=== PATIENT | male | born 1940 | race Caucasian/White ===

== ENCOUNTER 2021-06-20 10:55 | Emergency (ER) | payer MEDICARE, BC, SELFPAY ==
[2021-06-20 10:57] VITALS: BP 151/52; PULSE 69; RESP 18; TEMP 36.1; O2SAT 100; BMI 25.9
--- NOTE | 2021-06-20 12:18 | EX.ED.DYSGE1 ---
HPI History of Present Illness Chief Complaint: General Illness Informant: patient and spouse/S.O. Narrative Narrative: 80-year-old male history of end-stage renal disease dialysis. Patient denies any cardiac history. Recently has had some rectal bleeding due to hemorrhoids which he had worked up in [place] where he lives. Currently he is in this area visiting family. He went to an urgent care today. They heard a heart murmur and according to the patient they sent him to the emergency department to have that evaluated. He was supposed to get dialysis at 1130 today. He has since missed that appointment. He called dialysis and told him he would wait till Sunday to come in. He denies any significant swelling or shortness of breath. He denies any chest pain. He does not know if he was previously told he had a heart murmur. He is having no cardiac complaints. Prior similar symptoms: Yes Recent Illness/Hospitalization: No [facility] Medical History (Updated 06/20/21 @ 14:[address] Tanvir Bedoya MD) Hypertension Kidney failure Social History Smoking Status: Never smoker ROS ROS ED ROS Narrative Denies recent illness. Recently diagnosed with internal hemorrhoids with intermittent rectal bleeding. Review of Systems ROS Unobtainable: Denies due to encephalopathy Constitutional Constitutional ED: Denies chills or fever(s) Eyes Eyes: Denies change in vision ENT ENT ED: Denies ear pain or sore throat Cardiovascular Cardiovascular: Denies chest pain Respiratory/Chest Respiratory/Chest: Denies cough or dyspnea Gastrointestinal Gastrointestinal: Denies abdominal pain, diarrhea, nausea or vomiting Genitourinary Genitourinary ED: Denies dysuria Musculoskeletal Musculoskeletal: Denies myalgias Integumentary Denies rash Neurologic Neurologic: Denies headache(s) Psychiatric Psychiatric: Denies depression Endocrine Endocrinology: Denies polyuria Allergic/Immunologic Allergic/Immunologic ED: Denies urticaria EXAM Physical Exam Narrative Exam Narrative: Or male no acute distress vital signs stable afebrile. H EENT exam unremarkable. Neck nontender no JVD. Lungs clear to auscultation bilaterally. Heart regular rate and rhythm rate about 70. 4-6 systolic ejection murmur. Abdomen soft nontender normal bowel sounds no peritoneal signs. Annual exam currently very small external hemorrhoid. Not thrombosed. Not tender. No blood or active bleeding. Moving all 4 extremities. No edema. Neurologically is awake and alert with no focal motor deficits. Const Vital Signs: 06/20/21 10:57 06/20/21 13:04 Temperature 97 F L Temperature Source Temporal Pulse Rate 69 Respiratory Rate 18 Respiratory Pattern Normal Blood Pressure 151/52 H Blood Pressure Mean 85 Pulse Ox 100 Oxygen Delivery Method Room Air Positive well nourished and well developed; Negative for obese, cachectic, contractures or unkempt General Appearance ED: well developed and NAD; Negative for unkempt, cachectic, contractures, cyanotic or diaphoretic Nutritional Appearance: Negative for cachectic or obese HEENT Reports moist mucous membranes Negative for trauma or tenderness Eyes PERRL and EOMs intact bilaterally Neck no lymphadenopathy, supple and no JVD General: Negative for tenderness Chest Wall inspection of chest normal and palpation of chest normal Resp normal respiratory effort and clear to auscultation bilaterally Effort and Inspection: Negative for pain with movement Auscultation: Negative for rales, rhonchi or wheezes Cardio regular rate and regular rhythm; Negative for no murmurs Cardio Narrative: 4/6 systolic ejection murmur. Rate: regular rate Rhythm: regular rhythm GI normal to inspection, nondistended, normoactive bowel sounds, non-tender, non-distended and no masses GI Narrative: Anus no active bleeding. Small non-thrombosed nontender hemorrhoid. Inspection: Negative for abdominal distention Auscultation: normoactive bowel sounds Palpation: soft; Negative for tender, guarding or rebound tenderness present Back/Spine no CVA tenderness General Back: Negative for CVA tenderness Cervical Spine: Negative for cervical spine tenderness Thoracic Spine / Upper Back: Negative for thoracic spinal tenderness Extremity normal to inspection General Extremety ED: Negative for edema or tenderness General Extremity: Negative for edema Neuro oriented x3 and CN's II-XII intact bilaterally Sensorium / Orientation: Negative for orientation impaired, lethargic or stuporous Motor Exam: strength 5/5 throughout Psych mental status grossly normal Appearance: Negative for unkempt Attitude: No agitated Mood & Affect: Negative for depressed or tearful Skin no rashes or lesions noted and no wounds MDM MDM MDM Narrative Medical decision making narrative: 80-year-old male no acute complaint. Was supposed to get dialyzed today. [facility] urgent care sent him here to be evaluated for a heart murmur that my suspect he is had for years. He is having no cardiac complaints. He does have known rectal bleeding. He has had intermittent rectal bleeding but none currently at this time. I will check a CBC and chemistry. Repeat M at 219 patient doing well. He and I went over his test. I did offer him to try to get him dialysis today he did not want that earlier when I first evaluated him he does not want at this time he said to wait till Sunday. He will follow up with cardiology for further evaluation of his heart murmur. Discussed with patient and his he will follow-up with dialysis on Sunday. He will follow up with outpatient work-up of his heart murmur he believes he had an echocardiogram done in [place] about 8 months ago. Lab Data Attestation: I reviewed the patient's lab results. Lab results narrative: CBC shows white count 8. Hemoglobin 8.6. We do not have old labs for comparison but with his history of renal failure this is probably around his baseline. Electrolytes show potassium of 5.3 gap is 7 BUN of 59 creatinine 11.2. Glucose of 127. Labs: Laboratory Results - last 24 hr 06/20/21 06/20/21 12:45 12:45 WBC 8.4 RBC 2.69 L Hgb 8.6 L Hct 27.2 L MCV 101.1 H MCH 32.0 MCHC 31.6 L RDW Std Deviation 53.4 H RDW Coeff of Mauro 14.3 Plt Count 210 MPV 12.0 Sodium 140 Potassium 5.3 H Chloride 106 Carbon Dioxide 27.0 Anion Gap 7 BUN 59 H Creatinine 11.20 H* Estim Creat Clear Calc 5.26 Est GFR (MDRD) Af Amer 6 L Est GFR (MDRD) Non-Af 5 L BUN/Creatinine Ratio 5.3 L Glucose 127 H Calcium 8.4 L Discharge Plan Triage Chief Complaint: General Illness ED Provider: Tanvir Bedoya Dx/Rx/DC Orders Clinical Impression: End stage chronic kidney disease, Anemia due to chronic kidney disease, History of rectal bleeding, Cardiac murmur Primary Care Provider: Care Physician,No Primary Referrals: Donny Vargas MD [STAFF PHYSICIAN] - 1-2 Weeks Martin Ballard MD [STAFF PHYSICIAN] - 1-2 Weeks Care Physician,No Primary [Primary Care Provider] - Activity Restrictions/Additional Instructions: Very important follow-up with your dialysis on Sunday. Do not miss it. Continue your hemorrhoidal cream to prevent further bleeding. Follow-up if bleeding gets a lot worse. If you are going to be in the area follow-up and get a local primary care physician for further evaluation and work-up. Follow-up with either local primary care physician or a local cigarette inspector to have further evaluation of your heart murmur. I suspect it has been there for a long period of time. Disposition Disposition: Home, Self Care
[2021-06-20 12:54] LABS: Hematocrit 27.2 % (40-54); Hemoglobin 8.6 g/dL (13.0-16.5); Mean Corp Hgb Conc 31.6 g/dL (32-36); Mean Corpuscular Volume 101.1 fL (80-94); Platelet Count 210 K/mm3 (150-450); RBC Distribution Width CV 14.3 % (11.6-14.6); RBC Distribution Width SD 53.4 fl (35.1-43.9); Red Blood Count 2.69 M/mm3 (4.6-6.2); White Blood Count 8.4 K/mm3 (4.4-11.0)
[2021-06-20 13:12] LABS: Anion Gap 7 (5-15); BUN 59 mg/dL (7-18); BUN/Creat Ratio 5.3 RATIO (10-20); Calcium,Total 8.4 mg/dL (8.5-10.1); Chloride 106 mmol/L (98-107); EST Glomerular Filtration Rate 5 mL/min (>60); Est Glom Filt Rate - Afr Amer 6 mL/min (>60); Estimated Creatinine Clearance 5.26 ml/min; Glucose 127 mg/dL (74-106); Potassium 5.3 mmol/L (3.5-5.1); Sodium Level 140 mmol/L (136-145)
== END 2021-06-20 14:41 | disposition home or self-care (01) ==
PROVIDERS: Emergency Provider Emergency Medicine
DX: R01.1 Cardiac murmur, unspecified (principal); I12.0 Hypertensive chronic kidney disease with stage 5 chronic kidney disease or end stage renal disease; N18.6 End stage renal disease; D63.1 Anemia in chronic kidney disease; Z99.2 Dependence on renal dialysis
CPT/HCPCS: 80048; 85027; 99284; A4216

== ENCOUNTER 2022-03-10 11:08 | Emergency (ER) | payer MEDICARE, BC, SELFPAY ==
[2022-03-10 11:09] VITALS: BP 176/70; PULSE 62; RESP 14; TEMP 36.6; O2SAT 98; BMI 25.0
--- NOTE | 2022-03-10 11:35 | RAD_ITS ---
STUDY: X-RAY - LEFT FOOT CLINICAL: Male, 81 years old. Pain following a fall. TECHNIQUE: view(s) of the foot. COMPARISON: None. FINDINGS: Normal talus, calcaneus, and tarsal bones. Normal visualized subtalar, talonavicular, calcaneocuboid, tarsal and tarsometatarsal articulations. There is demineralization of the metatarsi. There is degenerative arthrosis of the metatarsophalangeal joint of the hallux . Normal tibial and fibular sesamoid bones. Normal interphalangeal joint of the great toe. Normal phalanges of the great toe. Normal second through fifth metatarsophalangeal joints. Nondisplaced fracture at the base of the second proximal phalanx as well as the distal portion of the second phalanx. Vascular calcification. RAD/Foot min 3 Views IMPRESSION: The mineralization of the bony structures of the foot. Nondisplaced fracture along the base of the proximal phalanx of the second toe as well as the distal portion of the proximal phalanx. Electronically Signed: Georges Hodgson MD at 13:07 EDT ,
[2022-03-10] MEDS: Acetaminophen 500 MG Tablet 1000 MG PO (11:42)
--- NOTE | 2022-03-10 11:44 | RAD_ITS ---
STUDY: X-RAY - RIGHT FOOT CLINICAL: Male, 81 years old. Pain following a fall. TECHNIQUE: 3 view(s) of the foot. COMPARISON: None. FINDINGS: Small plantar spur. Normal visualized subtalar, talonavicular, calcaneocuboid, tarsal and tarsometatarsal articulations. Normal metatarsi. There is degenerative arthrosis of the metatarsophalangeal joint of the hallux . Normal tibial and fibular sesamoid bones. Normal interphalangeal joint of the great toe. Normal phalanges of the great toe. Normal second through fifth metatarsophalangeal joints. Normal interphalangeal joints and phalanges of the lesser toes. Vascular calcification. RAD/Foot min 3 Views IMPRESSION: No acute abnormality is seen. Electronically Signed: Georges Hodgson MD at 13:08 EDT ,
--- NOTE | 2022-03-10 11:59 | ED.VIS.LOWEX ---
HPI History of Present Illness Chief Complaint: Lower Extremity Injury Informant: patient and family Narrative Narrative: Patient brought in by EMS bilateral foot pain from injury 2 evenings ago. Mechanical fall catching his feet on a rug, no head injuries he caught himself. States no significant swelling, however today had increasing pain with ambulation. No new injuries. No paresthesias. Patient on blood pressure cholesterol medicines also on amiodarone. He does takes baby aspirin. No other anticoagulants. He does not member with any assistance. Prior similar symptoms: No PFSH PFSH Medical History Hyperlipidemia Hypertension Kidney failure Home Medications amiodarone 200 mg tablet 1 tab PO DAILY 03/10/22 [History Last Taken Unknown] atorvastatin 40 mg tablet 1 tab PO DAILY 03/10/22 [History Last Taken Unknown] losartan 25 mg tablet 1 tab PO DAILY 03/10/22 [History Last Taken Unknown] nifedipine 90 mg tablet,extended release 1 tab PO DAILY 03/10/22 [History Last Taken Unknown] Allergy/AdvReac Type Severity Reaction Status Date / Time HEART MED Allergy PT UNSURE Uncoded 03/10/22 11:14 OF REACTION Surgical History History of colon resection Social History Smoking Status: Never smoker ROS ROS ED Constitutional Constitutional ED: Denies chills, fever(s) or sweats Eyes Eyes: Denies change in vision ENT ENT ED: Denies dysphagia or sore throat Cardiovascular Cardiovascular: Denies chest pain, leg edema, palpitations or racing heartbeat Respiratory/Chest Respiratory/Chest: Denies cough, dyspnea or dyspnea on exertion Gastrointestinal Gastrointestinal: Denies abdominal pain, diarrhea, nausea or vomiting Genitourinary Genitourinary ED: Denies dysuria, hematuria or urinary frequency Musculoskeletal Musculoskeletal: Reports other Details: Bilateral feet pain ; Denies back pain, extremity pain or neck pain Integumentary Denies rash or wounds Neurologic Neurologic: Denies headache(s), paresthesias or weakness EXAM Physical Exam Const Vital Signs: 03/10/22 11:09 Temperature 97.9 F Temperature Source Oral Pulse Rate 62 Respiratory Rate 14 Blood Pressure 176/70 H Blood Pressure Mean 105 Pulse Ox 98 Oxygen Delivery Method Room Air Positive well nourished and well developed Constitutional Narrative: GCS 15. General Appearance ED: well developed and NAD HEENT Reports moist mucous membranes normocephalic and atraumatic Eyes PERRL, EOMs intact bilaterally and conjunctivae normal General Eye ED: Yes normal appearance of both eyes Neck no lymphadenopathy and supple General: Negative for tenderness Chest Wall Chest: Negative for tenderness Resp normal respiratory effort and normal air movement Effort and Inspection: symmetric chest movement; Negative for respiratory distress Cardio regular rate, regular rhythm and no murmurs Peripheral Pulses: pulses 2+ throughout GI normal to inspection, nondistended, normoactive bowel sounds and non-tender Palpation: Negative for guarding or rebound tenderness present Back/Spine no CVA tenderness and no thoracic nor lumbar tenderness Extremity Extremity Narrative: Right lower extremity: No hip knee or ankle tenderness. There is no midfoot or proximal fifth base tenderness there is some tenderness on the distal second and third metatarsals with no deformities. Skin intact. No ecchymosis. Long toenails. Left lower extremity: No hip knee or ankle tenderness. There is no proximal midfoot tenderness. There is mild ecchymosis dorsal second and third metatarsals extending to the second digit. No deformities. Skin intact. Neuro vas intact. Long toenails. Left upper extremity positive thrill with fistula upper arm. General Extremety ED: Negative for edema or tenderness General Extremity: Negative for edema Neuro oriented x3 and no sensory deficits noted Sensorium / Orientation: awake and alert Skin no rashes or lesions noted and no wounds MDM MDM MDM Narrative Medical decision making narrative: X-rayPatient agreed with Tylenol for discomfort. X-ray right foot 3 views reviewed myself and read by radiology shows no acute process. X-ray left foot reviewed myself read by radiology notes second digit proximal phalanx fracture proximal and distal portion. This is closed. Patient's toenails were trimmed by myself. He has no neuropathy history. He is provided a walker and able ambulate with no difficulties. He will continue Tylenol. He is given follow-up with podiatry with his diabetes history along with his toe fracture. All questions were answered. Radiography Diagnostic Testing: Clinical Impression(s) from Imaging Studies Foot X-Ray 03/10/22 11:35 IMPRESSION: The mineralization of the bony structures of the foot. Nondisplaced fracture along the base of the proximal phalanx of the second toe as well as the distal portion of the proximal phalanx. Electronically Signed: Georges Hodgson MD at 13:07 EDT , Foot X-Ray 03/10/22 11:44 IMPRESSION: No acute abnormality is seen. Electronically Signed: Georges Hodgson MD at 13:08 EDT , Discharge Plan Triage Chief Complaint: Lower Extremity Injury ED Provider: Kirby Sparks Dx/Rx/DC Orders Clinical Impression: Toe fracture, left, Right foot sprain, ESRD on dialysis Instructions: ED Foot Sprain, ED Fracture, Toe, Closed Prescriptions: No Action atorvastatin 40 mg tablet 1 tab PO DAILY nifedipine 90 mg tablet extended release 1 tab PO DAILY Label Comments: TAKE 1 TABLET BY MOUTH ONCE DAILY amiodarone 200 mg tablet 1 tab PO DAILY losartan 25 mg tablet 1 tab PO DAILY Primary Care Provider: Care Physician,No Primary Referrals: Dalton Stephens DPM [STAFF PHYSICIAN] - 1 Week Care Physician,No Primary [Primary Care Provider] - Disposition Disposition: Home, Self Care
--- NOTE | 2022-03-10 13:29 | ED.RN ---
trimmed pt's toenails
== END 2022-03-10 13:30 | disposition home or self-care (01) ==
PROVIDERS: Emergency Provider Emergency Medicine; Visit Provider Emergency Medicine
DX: S92.912D Unspecified fracture of left toe(s), subsequent encounter for fracture with routine healing (principal); Z99.2 Dependence on renal dialysis; E11.22 Type 2 diabetes mellitus with diabetic chronic kidney disease; N18.6 End stage renal disease; I12.0 Hypertensive chronic kidney disease with stage 5 chronic kidney disease or end stage renal disease; E78.5 Hyperlipidemia, unspecified; S93.601D Unspecified sprain of right foot, subsequent encounter; W01.0XXD Fall on same level from slipping, tripping and stumbling without subsequent striking against object, subsequent encounter; Z79.899 Other long term (current) drug therapy
CPT/HCPCS: 73630; 99284

== ENCOUNTER 2022-07-08 03:19 | Inpatient (IN) | payer MEDICARE, BC, SELFPAY ==
[2022-07-08] VITALS (18 sets, daily range): BP systolic 141–220; BP diastolic 56–80; PULSE 56–87; RESP 16–24; TEMP 36.7–37.5; O2SAT 93–96; BMI 25.2; BMI 24.3
--- NOTE | 2022-07-08 03:25 | EKG12_ITS ---
Test Reason : DYSRHYTHMIA Blood Pressure : / mmHG Vent. Rate : 079 BPM Atrial Rate : 079 BPM P-R Int : 176 ms QRS Dur : 100 ms QT Int : 424 ms P-R-T Axes : -28 065 049 degrees QTc Int : 486 ms Normal sinus rhythm Prolonged QT Abnormal ECG No previous ECGs available Confirmed by JIMMY ESTRADA, AMRIT ([id number]), food expeditor BEA CLINTON ([id number]) on 07/12/2022 9:29:24 AM Referred By: MORA Confirmed By:AMRIT MARQUEZ MD
--- NOTE | 2022-07-08 03:28 | EDS_ITS ---
HPI History of Present Illness Chief Complaint: Weakness Informant: patient Onset/Context/Timing Onset: Weeks (2) Context: Gradual Onset Timing: Continuous Quality: Weakness Location: Lower extremities Worsened by: Nothing Relieved by: Nothing Narrative Narrative: Patient presents with generalized weakness that has been getting worse over the past 2 weeks. Patient states he feels like he is having difficulty ambulating because his legs feel weak. Patient denies any chest pain. Patient does admit to some shortness of breath. Patient denies any nausea or vomiting. Patient denies any cough. Patient has a history of chronic kidney disease and is on dialysis. Patient states he normally takes dialysis on Sunday, Sunday, and Sunday. Patient missed his dialysis on Sunday. Patient states his last dialysis was Sunday. Patient denies any sick contacts. [facility] Medical History Hyperlipidemia Hypertension Kidney failure Home Medications amiodarone 200 mg tablet 1 tab PO DAILY 03/10/22 [History Last Taken Unknown] atorvastatin 40 mg tablet 1 tab PO DAILY 03/10/22 [History Last Taken Unknown] losartan 25 mg tablet 1 tab PO DAILY 03/10/22 [History Last Taken Unknown] nifedipine 90 mg tablet,extended release 1 tab PO DAILY 03/10/22 [History Last Taken Unknown] aspirin 81 mg capsule 81 mg PO DAILY 07/08/22 [History Last Taken Unknown] donepezil 10 mg tablet 20 mg PO QHS 07/08/22 [History Last Taken Unknown] Allergy/AdvReac Type Severity Reaction Status Date / Time HEART MED Allergy PT UNSURE Uncoded 03/10/22 11:14 OF REACTION Surgical History History of colon resection Social History Smoking Status: Never smoker ROS ROS ED Constitutional Constitutional ED: Denies chills or fever(s) Eyes Eyes: Denies blurry vision or change in vision ENT ENT ED: Denies rhinorrhea or sore throat Cardiovascular Cardiovascular: Denies chest pain or palpitations Respiratory/Chest Respiratory/Chest: Reports cough and dyspnea Gastrointestinal Gastrointestinal: Denies nausea or vomiting Genitourinary Genitourinary ED: Denies dysuria or hematuria Musculoskeletal Musculoskeletal: Denies back pain or neck pain Integumentary Denies abscess or rash Neurologic Neurologic: Reports weakness; Denies headache(s) Allergic/Immunologic Allergic/Immunologic ED: Denies mouth swelling or urticaria EXAM Physical Exam Const Vital Signs: 07/08/22 03:22 07/08/22 03:22 07/08/22 03:29 Temperature 98.8 F 98.8 F Temperature Source Temporal Temporal Pulse Rate 87 87 Respiratory Rate 18 18 Respiratory Pattern Normal Blood Pressure 220/73 H 220/73 H Blood Pressure Mean 122 122 Pulse Ox 95 95 Oxygen Delivery Method Room Air Room Air 07/08/22 04:00 07/08/22 05:12 07/08/22 06:00 Temperature Temperature Source Pulse Rate 74 66 63 Respiratory Rate 24 H 24 H 23 H Respiratory Pattern Blood Pressure 195/80 H 147/60 H 188/65 H Blood Pressure Mean 118 89 106 Pulse Ox 95 94 95 Oxygen Delivery Method Room Air Room Air Room Air Positive well nourished and well developed General Appearance ED: well developed and NAD HEENT Reports moist mucous membranes Neck supple and no JVD Resp normal respiratory effort Auscultation: diminished lung sounds bilateral Cardio regular rate and regular rhythm GI normal to inspection, nondistended, normoactive bowel sounds and non-tender Palpation: soft Extremity normal to inspection General Extremety ED: Negative for edema or tenderness General Extremity: Negative for edema Neuro oriented x3, CN's II-XII intact bilaterally and no sensory deficits noted Sensorium / Orientation: alert Psych mental status grossly normal MDM MDM MDM Narrative Medical decision making narrative: Patient was given a dose of clonidine here. EKG was obtained. On my interpretation, it showed a normal sinus rhythm with a rate of 79. MD interval and QRS interval were normal. QTc interval slightly prolonged at 486 ms. [place] was normal. There are no acute ST or T wave changes. CBC shows a mild anemia with a hemoglobin of 10.7 hematocrit 34.7. PT was INR and PTT were essentially within normal limits. Comprehensive metabolic profile showed a BUN of 29 and creatinine of 10.1. These are consistent with prior results. High-sensitivity troponin was 80. BNP was 1764.8. Patient was given a dose of Lasix here. Portable 1 view chest x-ray was obtained. On my interpretation, lung mackey show bibasilar atelectasis. There is normal cardiac silhouette. Bony thorax is normal. There is no acute process noted. Radiologist also interpreted the x- ray and agrees. Urinalysis does not show any evidence of urinary tract infection or hematuria. COVID-19 rapid antigen was obtained and was positive. Influenza A and influenza B antigens were obtained and were negative. Case was discussed with the hospitalist. He will admit the patient for observation. Lab Data Attestation: I reviewed the patient's lab results. Labs: Laboratory Results - last 24 hr 07/08/22 07/08/22 07/08/22 03:24 03:34 03:34 WBC 7.5 RBC 3.28 L Hgb 10.7 L Hct 34.7 L MCV 105.8 H MCH 32.6 H MCHC 30.8 L RDW Std Deviation 54.9 H RDW Coeff of Mauro 14.2 Plt Count 209 MPV 11.9 Immature Gran % (Auto) 0.800 Neut % (Auto) 74.0 H Lymph % (Auto) 10.5 L Hughes % (Auto) 13.9 H Eos % (Auto) 0.3 Baso % (Auto) 0.5 Absolute Neuts (auto) 5.6 Absolute Lymphs (auto) 0.79 L Nucleated RBC % 0 PT 13.0 INR 1.0 APTT 37.6 H Sodium Potassium Chloride Carbon Dioxide Anion Gap BUN Creatinine Estim Creat Clear Calc Est GFR (MDRD) Af Amer Est GFR (MDRD) Non-Af BUN/Creatinine Ratio Glucose Calcium Total Bilirubin AST ALT Alkaline Phosphatase Troponin I High Sens B-Natriuretic Peptide 1764.8 H Total Protein Albumin Globulin Albumin/Globulin Ratio Urine Color Urine Clarity Urine pH Ur Specific [place] Urine Protein Urine Glucose (UA) Urine Ketones Urine Occult Blood Urine Nitrite Urine Bilirubin Urine Urobilinogen Ur Leukocyte Esterase Urine RBC Urine WBC Ur Squamous Epith Cells Urine Bacteria Urine Mucus 07/08/22 07/08/22 03:34 05:30 WBC RBC Hgb Hct MCV MCH MCHC RDW Std Deviation RDW Coeff of Mauro Plt Count MPV Immature Gran % (Auto) Neut % (Auto) Lymph % (Auto) Hughes % (Auto) Eos % (Auto) Baso % (Auto) Absolute Neuts (auto) Absolute Lymphs (auto) Nucleated RBC % PT INR APTT Sodium 141 Potassium 4.6 Chloride 101 Carbon Dioxide 29.0 Anion Gap 11 BUN 29 H Creatinine 10.10 H* Estim Creat Clear Calc 5.83 Est GFR (MDRD) Af Amer 6 L Est GFR (MDRD) Non-Af 5 L BUN/Creatinine Ratio 2.9 L Glucose 86 Calcium 8.4 L Total Bilirubin 0.40 AST 46 H ALT 29 Alkaline Phosphatase 89 Troponin I High Sens 80 H B-Natriuretic Peptide Total Protein 7.0 Albumin 3.1 L Globulin 3.9 Albumin/Globulin Ratio 0.8 L Urine Color Yellow Urine Clarity Clear Urine pH 8.0 Ur Specific [place] 1.010 Urine Protein 100 H Urine Glucose (UA) Normal Urine Ketones 5 H Urine Occult Blood Negative Urine Nitrite Negative Urine Bilirubin Negative Urine Urobilinogen Normal Ur Leukocyte Esterase 25 H Urine RBC 0 SEEN Urine WBC 0-5 SEEN Ur Squamous Epith Cells 0-5 SEEN Urine Bacteria 0 SEEN Urine Mucus 0 SEEN Radiography Chest X-Ray - ED: 1 View, Read by ED Physician, Read by Radiologist and No Acute Disease Diagnostic Testing: Clinical Impression(s) from Imaging Studies Chest X-Ray 07/08/22 03:50 IMPRESSION: Bibasilar linear scarring and/or atelectasis. Electronically Signed: Chucho Franklin MD at 4:12 EST , EKG Initial EKG: Attestation: I personally reviewed and interpreted this EKG as follows: Interpretation: Sinus Rhythm (79) and No Acute Injury Pattern Prior EKG tracings: not available for review Prior: No Prior Discharge Plan Dx/Rx/DC Orders Clinical Impression: General weakness, Chronic kidney disease, COVID-19 Disposition Disposition: Acute Care Hospital [facility]
[2022-07-08 03:47] LABS: Absolute Lymphocyte Count 0.79 X10^3/uL (0.83-4.51); Absolute Neutrophil Count 5.6 X10^3/uL (2.0-7.7); Basophil# 0.04 X10^3/uL; Basophil% 0.5 % (0-1); Eosinophil# 0.02 X10^3/uL; Eosinophils% 0.3 % (0-5); Hematocrit 34.7 % (40-54); Hemoglobin 10.7 g/dL (13.0-16.5); Lymphocyte # 0.79 X10^3/ul (0.83-4.51); Lymphocyte % 10.5 % (19-41); Mean Corp Hgb Conc 30.8 g/dL (32-36); Mean Corpuscular Hgb 32.6 pg (27.0-32.0); Mean Corpuscular Volume 105.8 fL (80-94); Mean Platelet Vol. 11.9 fl (6.2-12.0); Monocyte# 1.05 X10^3/uL; Monocyte% 13.9 % (0-10); NRBC Flagged by Analyzer 0 % (0-5); Neutrophil # 5.58 X10^3/uL (2.7-7.7); Platelet Count 209 K/mm3 (150-450); RBC Distribution Width CV 14.2 % (11.6-14.6); RBC Distribution Width SD 54.9 fl (35.1-43.9); Red Blood Count 3.28 M/mm3 (4.6-6.2); White Blood Count 7.5 K/mm3 (4.4-11.0)
--- NOTE | 2022-07-08 03:50 | RAD_ITS ---
INDICATION: cough EXAMINATION/TECHNIQUE: X-RAY - AP view of chest COMPARISON: None received. FINDINGS: LINES/DEVICES: Left upper extremity vascular stents present. LUNGS: Bibasilar linear opacities. No overt pulmonary edema. No sizable pleural effusion. No detectable pneumothorax. MEDIASTINUM AND CARDIOVASCULAR STRUCTURES: Heart size within normal limits for imaging technique. Atherosclerotic calcifications along aorta. BONES AND SOFT TISSUES: Skeletal degenerative changes. RAD/Chest 1 View (Portable) IMPRESSION: Bibasilar linear scarring and/or atelectasis. Electronically Signed: Chucho Franklin MD at 4:12 EST ,
[2022-07-08 03:58] LABS: Partial Thromboplast Time 37.6 Seconds (24.1-36.2)
[2022-07-08] MEDS: cloNIDine HCl 0.1 MG Tablet PO (04:00)
[2022-07-08 04:41] LABS: ALB/GLOB Ratio 0.8 RATIO (0.9-2.4); AST(SGOT) 46 U/L (15-37); Alanine Aminotransfer ALT/SGPT 29 U/L (16-61); Albumin, Serum 3.1 g/dL (3.2-5.0); Alkaline Phosphatase 89 U/L (45-117); Anion Gap 11 (5-15); BUN 29 mg/dL (7-18); BUN/Creat Ratio 2.9 RATIO (10-20); Calcium,Total 8.4 mg/dL (8.5-10.1); Chloride 101 mmol/L (98-107); EST Glomerular Filtration Rate 5 mL/min (>60); Est Glom Filt Rate - Afr Amer 6 mL/min (>60); Estimated Creatinine Clearance 5.83 ml/min; Globulin 3.9 g/dL (2.2-4.2); Glucose 86 mg/dL (74-106); Potassium 4.6 mmol/L (3.5-5.1); Sodium Level 141 mmol/L (136-145); Troponin-I HS 80 pg/mL (3.0-78.0)
[2022-07-08 04:58] LABS: BNP,B-Type NATRIURETIC PEPTIDE 1764.8 pg/mL (0-100)
[2022-07-08] MEDS: Furosemide 40 MG/4 ML Vial IV (05:17)
[2022-07-08 05:37] LABS: Bacteria 0 SEEN /hpf (None Seen); Mucous, Urine 0 SEEN /hpf (<or=2+); Red Blood Cells-Urine 0 SEEN /hpf (0-5)
[2022-07-08 05:38] LABS: Color, Urine Yellow (Yellow); Glucose, Dipstick Normal (Normal); Ketone-Dipstick 5 mg/dl (Negative); Leukocyte Esterase-Dipstick 25 /ul (Negative); Nitrite-Dipstick Negative (Negative); Occult Blood-Urine Negative /ul (Negative); Protein-Dipstick 100 mg/dl (Negative); Urine Bilirubin Dipstick Negative (Negative); Urine Clarity Clear (Clear); Urine Urobilinogen Normal (Normal)
[2022-07-08 05:44] LABS: Squamous Epithelial Cells - UA 0-5 SEEN /hpf (0-5); White Blood Cells 0-5 SEEN /hpf (0-5)
--- NOTE | 2022-07-08 06:23 | PCM.HP.STD ---
HPI - General General Date of Admission: 07/08/22 HPI Narrative ANNE-MARIE DAVIES, is a 82 M who presents to the hospital with weakness. He states that he started getting weak about 2 weeks ago and has progressed since that time. He is unsure as to the cause and both he and his are poor historians. He is on dialysis MWF for ESRD and his program research specialist is a Dr. Carroll or Mary in [place]. He was so weak that he had to skip dialysis on sunday and now presents with a creatinine of 10.10. BUN is elevated but likely related to his renal failure. He also states that he has been coughing for the last month but has not had any real fevers or chills. He has not been around any sick contacts but he did test positive for COVID and has not been vaccinated. It looks like he has been to the hospital in February secondary to a fall so meet he may be battling with chronic weakness at this point. He is also a little hypertensive which could be explained by the fact that he skipped dialysis yesterday. His troponin is elevated to 88 however he denies any chest pain, or shortness of breath. His troponin elevation is likely correlated with his elevated creatinine as well. [facility] Medical History Hyperlipidemia Hypertension Kidney failure Home Medications amiodarone 200 mg tablet 1 tab PO DAILY 03/10/22 [History Last Taken Unknown] atorvastatin 40 mg tablet 1 tab PO DAILY 03/10/22 [History Last Taken Unknown] losartan 25 mg tablet 1 tab PO DAILY 03/10/22 [History Last Taken Unknown] nifedipine 90 mg tablet,extended release 1 tab PO DAILY 03/10/22 [History Last Taken Unknown] aspirin 81 mg capsule 81 mg PO DAILY 07/08/22 [History Last Taken Unknown] donepezil 10 mg tablet 20 mg PO QHS 07/08/22 [History Last Taken Unknown] Allergy/AdvReac Type Severity Reaction Status Date / Time HEART MED Allergy PT UNSURE Uncoded 03/10/22 11:14 OF REACTION Family History (Updated 07/08/22 @ 06:[address] Balwinder Erickson MD) Other Heart disease Hypertension Surgical History History of colon resection Social History Smoking Status: Never smoker ROS Constitutional Constitutional: Reports weakness; Denies chills, fatigue, fever(s) or malaise Eyes Eyes: Denies blurry vision ENT HEENT: Denies headache(s) or nasal discharge Cardiovascular Cardiovascular: Denies chest pain, dyspnea on exertion or syncope Respiratory/Chest Respiratory/Chest: Denies cough, shortness of breath at rest or shortness of breath with exertion Gastrointestinal Gastrointestinal: Denies constipation, diarrhea, nausea or vomiting Genitourinary Genitourinary: Denies dysuria Neurologic Neurologic: Denies focal weakness, numbness or tremor(s) Psychiatric Psychiatric: Denies anxiety or depression Vital Signs Vital Signs Vital Signs: 07/08/22 03:22 07/08/22 03:22 07/08/22 03:29 Temperature 98.8 F 98.8 F Temperature Source Temporal Temporal Pulse Rate 87 87 Respiratory Rate 18 18 Respiratory Pattern Normal Blood Pressure 220/73 H 220/73 H Blood Pressure Mean 122 122 Pulse Ox 95 95 Oxygen Delivery Method Room Air Room Air 07/08/22 04:00 07/08/22 05:12 07/08/22 06:00 Temperature Temperature Source Pulse Rate 74 66 63 Respiratory Rate 24 H 24 H 23 H Respiratory Pattern Blood Pressure 195/80 H 147/60 H 188/65 H Blood Pressure Mean 118 89 106 Pulse Ox 95 94 95 Oxygen Delivery Method Room Air Room Air Room Air 07/08/22 06:14 Temperature 99.2 F H Temperature Source Temporal Pulse Rate 62 Respiratory Rate 21 H Respiratory Pattern Blood Pressure 190/60 H Blood Pressure Mean 103 Pulse Ox 96 Oxygen Delivery Method Room Air Weight Weight: 170 lb 13.732 oz Body Mass Index (BMI) 25.2 Physical Exam Narrative General: Alert but drowsy, Oriented x3, Cooperative, No apparent distress HEENT: Atraumatic, PERRLA, EOMI, Normocephalic Oral: Moist Mucosa Neck: Supple, No JVD Lungs: Diminished, Normal air movement, No rhonchi, No wheeze, No rales Cardiovascular: Regular rate, Regular Rhythm, Normal S1, Normal S2, No murmurs Abdomen: Soft, Non Tender, mild distention, No Hepato-splenomegaly Extremities: No edema, Capillary Refill Less than 3 Seconds, left upper extremity fistula Skin: No rashes, No breakdown, multiple areas of ecchymosis consistent with falls Musculoskeletal: No Tenderness to Palpation of Joints or Extremities Neurological: Cranial nerves II-XII grossly intact, Motor Exam 5/5 strength throughout, Sensory exam intact to light touch and pain Psych/Mental Status: Flat affect, Appropriate Results Lab / Micro Data Result Diagrams: 07/08/22 03:34 07/08/22 03:34 Labs: Laboratory Results - last 24 hr 07/08/22 03:24: B-Natriuretic Peptide 1764.8 H 07/08/22 03:34: WBC 7.5, RBC 3.28 L, Hgb 10.7 L, Hct 34.7 L, MCV 105.8 H, MCH 32.6 H, MCHC 30.8 L, RDW Std Deviation 54.9 H, RDW Coeff of Mauro 14.2, Plt Count 209, MPV 11.9, Immature Gran % (Auto) 0.800, Neut % (Auto) 74.0 H, Lymph % (Auto) 10.5 L, [place] % (Auto) 13.9 H, Eos % (Auto) 0.3, Baso % (Auto) 0.5, Absolute Neuts (auto) 5.6, Absolute Lymphs (auto) 0.79 L, Nucleated RBC % 0 07/08/22 03:34: PT 13.0, INR 1.0, APTT 37.6 H 07/08/22 03:34: Sodium 141, Potassium 4.6, Chloride 101, Carbon Dioxide 29.0, Anion Gap 11, BUN 29 H, Creatinine 10.10 H*, Estim Creat Clear Calc 5.83, Est GFR (MDRD) Af Amer 6 L, Est GFR (MDRD) Non-Af 5 L, BUN/Creatinine Ratio 2.9 L, Glucose 86, Calcium 8.4 L, Total Bilirubin 0.40, AST 46 H, ALT 29, Alkaline Phosphatase 89, Troponin I High Sens 80 H, Total Protein 7.0, Albumin 3.1 L, Globulin 3.9, Albumin/Globulin Ratio 0.8 L 07/08/22 05:30: Urine Color Yellow, Urine Clarity Clear, Urine pH 8.0, Ur Specific [place] 1.010, Urine Protein 100 H, Urine Glucose (UA) Normal, Urine Ketones 5 H, Urine Occult Blood Negative, Urine Nitrite Negative, Urine Bilirubin Negative, Urine Urobilinogen Normal, Ur Leukocyte Esterase 25 H, Urine RBC 0 SEEN, Urine WBC 0-5 SEEN, Ur Squamous Epith Cells 0-5 SEEN, Urine Bacteria 0 SEEN, Urine Mucus 0 SEEN Micro: Microbiology 07/08/22 03:46 Nasal Secretion SARS-CoV-2 & FLU Antigen (Rapid) - Final SARS-CoV-2 (COVID 19) Radiology Impression Chest X-Ray 07/08/22 03:50 IMPRESSION: Bibasilar linear scarring and/or atelectasis. Electronically Signed: Chucho Franklin MD at 4:12 EST , Assessment & Plan Assessment/Plan (1) General weakness: (2) COVID-19: PLAN: Plan 1. Generalized weakness likely due to COVID-19 and missed dialysis/abdominal distention ? We will consult nephrology for dialysis today if possible. He gets dialysis from a program research specialist in [place] ? We only have 1 prior creatinine in the system so I do not know where he normally sits in terms of his renal function we will add a Mag and a phos ? He says that he has had a cough for at least a month and has been weak for at least [address] given the fact that his oxygenation is is stable on room air I do not believe that he needs to be in precautions for COVID and he does not meet the criteria for treatment ? PT/OT evaluation for placement, he is okay with going to a skilled nursing if necessary ? UA and chest x-ray were negative for a bacterial infection, he does not have a leukocytosis and is afebrile ? We will add liver panel to labs from today he states that his abdomen is not normally this big it is not tense or tender 2. HTN/HLD ? Blood pressures are elevated he would likely benefit from dialysis more than medication, he does have a left upper extremity fistula ? Continue home oral blood pressure medications ? Continue with Lipitor and aspirin 3. Dementia ? Continue with donepezil DVT: Heparin Charges/Coding Visit Charges OBSV E&M: 89248 Initial observation care L2
[2022-07-08 06:25] LABS: Troponin-I HS 88 pg/mL (3.0-78.0)
[2022-07-08 07:02] LABS: Phosphorus 3.8 mg/dL (2.5-4.9)
[2022-07-08 07:06] LABS: AST(SGOT) 45 U/L (15-37); Alanine Aminotransfer ALT/SGPT 31 U/L (16-61); Albumin, Serum 2.9 g/dL (3.2-5.0); Alkaline Phosphatase 80 U/L (45-117); Bilirubin, Direct 0.12 mg/dL (0.00-0.30); Globulin 3.5 g/dL (2.2-4.2); Protein, Total 6.4 g/dL (6.4-8.2)
--- NOTE | 2022-07-08 08:48 | NURSING ---
attempted three times to call in consult for Dr Breaux through [facility]'s answering service. stayed on hold for 6+ minutes each time, with no answer
--- NOTE | 2022-07-08 10:42 | PN.HOSP_ITS ---
Subjective Subjective Patient is an 82-year-old gentleman who is now vaccinated against COVID-19, with past medical history significant for end-stage renal disease, with left upper extremity fistula presented to the emergency department with generalized weakness tested positive for COVID admitted to a monitored bed for further management Objective Data Objective Data Vital Signs: Vital Signs Temp Pulse Resp BP Pulse Ox O2 Del Method 99.1 F 60 16 185/63 H 93 Room Air 07/08/22 08:18 07/08/22 08:18 07/08/22 08:18 07/08/22 08:18 07/08/22 08:18 07/08/22 08:18 Oxygen Delivery Method Room Air Weight: 74.843 kg Body Mass Index (BMI) 24.3 Lab / Micro Data Result Diagrams: 07/08/22 03:34 07/08/22 03:34 Labs: Laboratory Results - last 24 hr 07/08/22 03:24: B-Natriuretic Peptide 1764.8 H 07/08/22 03:34: WBC 7.5, RBC 3.28 L, Hgb 10.7 L, Hct 34.7 L, MCV 105.8 H, MCH 32.6 H, MCHC 30.8 L, RDW Std Deviation 54.9 H, RDW Coeff of Mauro 14.2, Plt Count 209, MPV 11.9, Immature Gran % (Auto) 0.800, Neut % (Auto) 74.0 H, Lymph % (Auto) 10.5 L, [place] % (Auto) 13.9 H, Eos % (Auto) 0.3, Baso % (Auto) 0.5, Absolute Neuts (auto) 5.6, Absolute Lymphs (auto) 0.79 L, Nucleated RBC % 0 07/08/22 03:34: PT 13.0, INR 1.0, APTT 37.6 H 07/08/22 03:34: Sodium 141, Potassium 4.6, Chloride 101, Carbon Dioxide 29.0, Anion Gap 11, BUN 29 H, Creatinine 10.10 H*, Estim Creat Clear Calc 5.83, Est GFR (MDRD) Af Amer 6 L, Est GFR (MDRD) Non-Af 5 L, BUN/Creatinine Ratio 2.9 L, Glucose 86, Calcium 8.4 L, Total Bilirubin 0.40, AST 46 H, ALT 29, Alkaline Phosphatase 89, Troponin I High Sens 80 H, Total Protein 7.0, Albumin 3.1 L, Globulin 3.9, Albumin/Globulin Ratio 0.8 L 07/08/22 05:30: Urine Color Yellow, Urine Clarity Clear, Urine pH 8.0, Ur Specific [place] 1.010, Urine Protein 100 H, Urine Glucose (UA) Normal, Urine Ketones 5 H, Urine Occult Blood Negative, Urine Nitrite Negative, Urine Bilirubin Negative, Urine Urobilinogen Normal, Ur Leukocyte Esterase 25 H, Urine RBC 0 SEEN, Urine WBC 0-5 SEEN, Ur Squamous Epith Cells 0-5 SEEN, Urine Bacteria 0 SEEN, Urine Mucus 0 SEEN 07/08/22 05:58: Troponin I High Sens 88 H 07/08/22 05:58: Magnesium 2.0, Total Bilirubin 0.30, Direct Bilirubin 0.12, AST 45 H, ALT 31, Alkaline Phosphatase 80, Total Protein 6.4, Albumin 2.9 L, Globulin 3.5 07/08/22 05:58: Phosphorus 3.8 Micro: Microbiology 07/08/22 03:46 Nasal Secretion SARS-CoV-2 & FLU Antigen (Rapid) - Final SARS-CoV-2 (COVID 19) Radiography Diagnostic Testing: Radiology Impression Chest X-Ray 07/08/22 03:50 IMPRESSION: Bibasilar linear scarring and/or atelectasis. Electronically Signed: Chucho Franklin MD at 4:12 EST Reading Location ID and State: [address] [place] [address] Tel , Service support , Physical Exam Narrative GENERAL: Frail looking HEENT: Atraumatic; normocephalic EYES; Anicteric, Normal Conjunctiva NECK; supple, normal thyroid, RESPIRATORY: Diminished to auscultation CARDIOVASCULAR: Regular S1 S2, GI: soft, normoactive bowel sounds, : No Renal angle tenderness; EXTREMITIES: No edema, no clubbing, MUSCULOSKELETAL: no muscle wasting NEURO: Awake; no lateralizing signs. SKIN: No Rash PSYCH; Flat affect Assessment & Plan Assessment/Plan (1) General weakness: (2) COVID-19: PLAN: Plan Patient is an 82-year-old gentleman who is now vaccinated against COVID-19, with past medical history significant for end-stage renal disease, with left upper extremity fistula presented to the emergency department with generalized weakness tested positive for COVID admitted to a monitored bed for further management 1. Acute COVID-19 infection ? Patient presented with progressive generalized weakness. Admitted to regular nursing floor for symptom management 2. End-stage renal disease ? On dialysis on Wednesdays and Fridays. Patient had apparently missed dialysis on Sunday consult placed to nephrology for dialysis orders 3. Dyslipidemia -Patient is on statin therapy, continued at home dose 4. Hypertension - Blood pressure controlled, home medications continued with dose adjustment as needed 5. Chronic use of amiodarone ? Arrhythmia?? A. fib patient a poor historian medication continued 6. Dementia ? On donepezil did continue 7. DVT prophylaxis ? SC Heparin Due to prolonged time seen evaluating patient, review of diagnostic data, subsequent adjustment of therapy and discussion with other providers involved in patient's care; 15-minute Charges/Coding Multi Select Codes Hospitalists' Procedures Procedures: 88895 Prolonged InPt Service; first hour
--- NOTE | 2022-07-08 11:15 | CASEMGMT ---
Social Work SW spoke w/conveyor line battery charger. She states that as per ED, who is here w/pt seems to be having memory issues. She has gotten turned around in the ED a few times. There is concern about her going home, if she can manage. SW met w/pt and in room in regard to prior level of function and anticipated discharge plan. Pt was asleep but once woke up was able to answer questions. was not certain of most answers. PCP: Pt states does not have one Specialists: Pt sees Dr. Cowart, renal doctor Insurance: Medicare/VOSS [facility]: [facility] [place] Living arrangements: Pt and live in a condo. As per , they just moved so she did not know the address. Pt was able to give SW the address of their home. Prior level of function: As per , they help each other out. They complete ADLs, both do the managing of the home. Pt states sets up his own medications. Pt drives himself to dialysis. He goes Sunday, Sunday, Sunday at [facility]. As per , he doesn't use DME. LW/POA: As per pt, is POA. When SW spoke w/ about this, she began speaking w/SW about their will and belongings. LNOK: states has two children, one is adopted. She knew they did not live local but was not able to tell SW where they live. Pt informed SW they are in [place] and [place]. Pt has no children. He has a sister who lives local, pt did ask SW to call pt's sister. Plan: TBD. SW spoke w/pt and , states she plans to stay here until pt is discharged. Depending on how long pt is here however, this may not be possible. ERINN called pt's sister Letty Gallo as per pt's request. SW let pt's sister know pt is here with COVID and may be here a couple of days. SW inquired w/sister if pt's has some memory issues. She states she does. ERINN explained cannot stay here the whole time pt is here, and inquired if there is anyone who can stay w/ or anyplace she may be able to say. Letty states she can come get and will stay w/her or have her stay w/Letty. She will come sometime this afternoon. SW let pt and know called Letty. SW explained Letty is going to come this afternoon to [place] and either stay w/her or have her stay w/Letty, to help keep her safe. states understanding and is agreeable to this. SW/CM will continue to follow. With pt having COVID, and needing dialysis, pt may need a change in dialysis centers. If pt needs SNF, we will need to find a facility that can take a dialysis pt w/COVID. RUPERT Diggs
[2022-07-08] MEDS: Aspirin 81 MG TAB.CHEW PO (12:03)
[2022-07-08] MEDS: Amiodarone 200 MG Tablet PO (12:03)
[2022-07-08] MEDS: Losartan Potassium 25 MG Tablet PO (12:03)
[2022-07-08] MEDS: NIFEdipine 90 MG Tablet PO (12:03)
--- NOTE | 2022-07-08 15:05 | EX.PCM.SENPN ---
Subjective Subjective 82 years old with ESRD came over with weakness, He missed his dialysis yesterday Objective Data Objective Data Vital Signs: Vital Signs Temp Pulse Resp BP Pulse Ox O2 Del Method 99.5 F H 56 L 16 179/60 H 93 Room Air 07/08/22 13:43 07/08/22 14:47 07/08/22 13:43 07/08/22 13:43 07/08/22 13:43 07/08/22 13:43 Oxygen Delivery Method Room Air Weight: 74.843 kg Body Mass Index (BMI) 24.3 Lab / Micro Data Attestation: I reviewed the patient's lab results. Result Diagrams: 07/08/22 03:34 07/08/22 03:34 Labs: Laboratory Results - last 24 hr 07/08/22 03:24: B-Natriuretic Peptide 1764.8 H 07/08/22 03:34: WBC 7.5, RBC 3.28 L, Hgb 10.7 L, Hct 34.7 L, MCV 105.8 H, MCH 32.6 H, MCHC 30.8 L, RDW Std Deviation 54.9 H, RDW Coeff of Mauro 14.2, Plt Count 209, MPV 11.9, Immature Gran % (Auto) 0.800, Neut % (Auto) 74.0 H, Lymph % (Auto) 10.5 L, [place] % (Auto) 13.9 H, Eos % (Auto) 0.3, Baso % (Auto) 0.5, Absolute Neuts (auto) 5.6, Absolute Lymphs (auto) 0.79 L, Nucleated RBC % 0 07/08/22 03:34: PT 13.0, INR 1.0, APTT 37.6 H 07/08/22 03:34: Sodium 141, Potassium 4.6, Chloride 101, Carbon Dioxide 29.0, Anion Gap 11, BUN 29 H, Creatinine 10.10 H*, Estim Creat Clear Calc 5.83, Est GFR (MDRD) Af Amer 6 L, Est GFR (MDRD) Non-Af 5 L, BUN/Creatinine Ratio 2.9 L, Glucose 86, Calcium 8.4 L, Total Bilirubin 0.40, AST 46 H, ALT 29, Alkaline Phosphatase 89, Troponin I High Sens 80 H, Total Protein 7.0, Albumin 3.1 L, Globulin 3.9, Albumin/Globulin Ratio 0.8 L 07/08/22 05:30: Urine Color Yellow, Urine Clarity Clear, Urine pH 8.0, Ur Specific [place] 1.010, Urine Protein 100 H, Urine Glucose (UA) Normal, Urine Ketones 5 H, Urine Occult Blood Negative, Urine Nitrite Negative, Urine Bilirubin Negative, Urine Urobilinogen Normal, Ur Leukocyte Esterase 25 H, Urine RBC 0 SEEN, Urine WBC 0-5 SEEN, Ur Squamous Epith Cells 0-5 SEEN, Urine Bacteria 0 SEEN, Urine Mucus 0 SEEN 07/08/22 05:58: Troponin I High Sens 88 H 07/08/22 05:58: Magnesium 2.0, Total Bilirubin 0.30, Direct Bilirubin 0.12, AST 45 H, ALT 31, Alkaline Phosphatase 80, Total Protein 6.4, Albumin 2.9 L, Globulin 3.5 07/08/22 05:58: Phosphorus 3.8 Micro: Microbiology 07/08/22 03:46 Nasal Secretion SARS-CoV-2 & FLU Antigen (Rapid) - Final SARS-CoV-2 (COVID 19) Radiography Diagnostic Testing: Radiology Impression Chest X-Ray 07/08/22 03:50 IMPRESSION: Bibasilar linear scarring and/or atelectasis. Electronically Signed: Chucho Franklin MD at 4:12 EST , Assessment & Plan Assessment/Plan (1) Chronic kidney disease: (2) ESRD (end stage renal disease) on dialysis: PLAN: Even though he missed HD yesterday, he does not appear to be fluid overloaded and has normal potassium. Due to staffing shortage he will be done 1st thing in the morning. Thank you
[2022-07-08] MEDS: Heparin Injection (Vial) 5,000 UNIT/ML VIAL 5000 UNIT SC ×2 (15:26→21:17)
[2022-07-08] MEDS: Nepro with Carbsteady 237 ML Liquid 120 ML PO (16:22)
[2022-07-08] MEDS: Donepezil HCl 10 MG Tablet 20 MG PO (21:17)
[2022-07-08] MEDS: Atorvastatin Calcium 40 MG Tablet PO (21:17)
--- NOTE | 2022-07-08 21:56 | NURSING ---
RN attempted to call Letty to update about
[2022-07-09] VITALS (13 sets, daily range): BP systolic 102–142; BP diastolic 53–67; PULSE 58–80; RESP 16–20; TEMP 36.2–36.9; O2SAT 90–96
[2022-07-09] MEDS: Heparin Injection (Vial) 5,000 UNIT/ML VIAL 5000 UNIT SC ×3 (05:49→21:16)
[2022-07-09 06:28] LABS: Absolute Lymphocyte Count 1.18 X10^3/uL (0.83-4.51); Absolute Neutrophil Count 3.6 X10^3/uL (2.0-7.7); Basophil# 0.02 X10^3/uL; Basophil% 0.3 % (0-1); Eosinophil# 0.08 X10^3/uL; Eosinophils% 1.4 % (0-5); Hematocrit 32.5 % (40-54); Hemoglobin 10.2 g/dL (13.0-16.5); Lymphocyte # 1.18 X10^3/ul (0.83-4.51); Lymphocyte % 20.5 % (19-41); Mean Corp Hgb Conc 31.4 g/dL (32-36); Mean Corpuscular Hgb 32.8 pg (27.0-32.0); Mean Corpuscular Volume 104.5 fL (80-94); Mean Platelet Vol. 12.4 fl (6.2-12.0); Monocyte# 0.77 X10^3/uL; Monocyte% 13.4 % (0-10); NRBC Flagged by Analyzer 0 % (0-5); Neutrophil # 3.63 X10^3/uL (2.7-7.7); Neutrophil % 63.2 % (47-70); Platelet Count 166 K/mm3 (150-450); RBC Distribution Width SD 53.6 fl (35.1-43.9); Red Blood Count 3.11 M/mm3 (4.6-6.2); White Blood Count 5.8 K/mm3 (4.4-11.0)
--- NOTE | 2022-07-09 06:36 | NURSING ---
Pt step-daughter Rhiannon in [place] called and updated. Per pt permission Rhiannon Maryramo can be added to contact list and given information regarding pt condition and care.
[2022-07-09 07:10] LABS: ALB/GLOB Ratio 0.8 RATIO (0.9-2.4); AST(SGOT) 56 U/L (15-37); Alanine Aminotransfer ALT/SGPT 33 U/L (16-61); Albumin, Serum 2.6 g/dL (3.2-5.0); Alkaline Phosphatase 79 U/L (45-117); Anion Gap 10 (5-15); BUN 48 mg/dL (7-18); BUN/Creat Ratio 3.9 RATIO (10-20); Calcium,Total 7.9 mg/dL (8.5-10.1); Chloride 102 mmol/L (98-107); EST Glomerular Filtration Rate 4 mL/min (>60); Est Glom Filt Rate - Afr Amer 5 mL/min (>60); Estimated Creatinine Clearance 4.79 ml/min; Globulin 3.4 g/dL (2.2-4.2); Glucose 82 mg/dL (74-106); Potassium 4.5 mmol/L (3.5-5.1); Sodium Level 140 mmol/L (136-145)
--- NOTE | 2022-07-09 07:28 | PN.HOSP_ITS ---
Subjective Subjective Patient seen still appears frail. Scheduled to undergo hemodialysis Objective Data Objective Data Vital Signs: Vital Signs Temp Pulse Resp BP Pulse Ox O2 Del Method 98.4 F 62 16 132/53 H 94 Room Air 07/09/22 04:00 07/09/22 04:33 07/09/22 04:00 07/09/22 04:00 07/09/22 04:00 07/09/22 04:00 Oxygen Delivery Method Room Air Weight: 74.843 kg Body Mass Index (BMI) 24.3 Intake & Output: Intake and Output for Last 24 Hours 07/07/22 07/08/22 07/09/22 23:59 23:59 23:59 Intake Total 430 / 430 500 / 500 Balance 430 / 430 500 / 500 Lab / Micro Data Result Diagrams: 07/09/22 05:55 07/09/22 05:55 Labs: Laboratory Results - last 24 hr 07/09/22 05:55: WBC 5.8, RBC 3.11 L, Hgb 10.2 L, Hct 32.5 L, MCV 104.5 H, MCH 32.8 H, MCHC 31.4 L, RDW Std Deviation 53.6 H, RDW Coeff of Mauro 14.0, Plt Count 166, MPV 12.4 H, Immature Gran % (Auto) 1.200 H, Neut % (Auto) 63.2, Lymph % (Auto) 20.5, [place] % (Auto) 13.4 H, Eos % (Auto) 1.4, Baso % (Auto) 0.3, Absolute Neuts (auto) 3.6, Absolute Lymphs (auto) 1.18, Nucleated RBC % 0 07/09/22 05:55: Sodium 140, Potassium 4.5, Chloride 102, Carbon Dioxide 28.0, Anion Gap 10, BUN 48 H, Creatinine 12.30 H*, Estim Creat Clear Calc 4.79, Est GFR (MDRD) Af Amer 5 L, Est GFR (MDRD) Non-Af 4 L, BUN/Creatinine Ratio 3.9 L, G lucose 82, Calcium 7.9 L, Total Bilirubin 0.30, AST 56 H, ALT 33, Alkaline Phosphatase 79, Total Protein 6.0 L, Albumin 2.6 L, Globulin 3.4, Albumin/Globulin Ratio 0.8 L Micro: Microbiology 07/08/22 03:46 Nasal Secretion SARS-CoV-2 & FLU Antigen (Rapid) - Final SARS-CoV-2 (COVID 19) Physical Exam Narrative GENERAL: Frail looking HEENT: Atraumatic; normocephalic EYES; Anicteric, Normal Conjunctiva NECK; supple, normal thyroid, RESPIRATORY: Diminished to auscultation CARDIOVASCULAR: Regular S1 S2, GI: soft, normoactive bowel sounds, : No Renal angle tenderness; EXTREMITIES: No edema, no clubbing, MUSCULOSKELETAL: no muscle wasting NEURO: Awake; no lateralizing signs. SKIN: No Rash PSYCH; Flat affect Assessment & Plan Assessment/Plan (1) General weakness: (2) COVID-19: PLAN: Plan Patient is an 82-year-old gentleman who is now vaccinated against COVID-19, with past medical history significant for end-stage renal disease, with left upper extremity fistula presented to the emergency department with generalized weakness tested positive for COVID admitted to a monitored bed for further management 1. Acute COVID-19 infection ? Patient presented with progressive generalized weakness. Admitted to regular nursing floor for symptom management ? 07/09/2022 patient remains frail 2. End-stage renal disease ? On dialysis on Wednesdays and Fridays. Patient had apparently missed dialysis on Sunday consult placed to nephrology for dialysis orders ? 07/09/2022 patient creatinine up to 12.30 scheduled to undergo hemodialysis 3. Dyslipidemia -Patient is on statin therapy, continued at home dose 4. Hypertension - Blood pressure controlled, home medications continued with dose adjustment as needed 5. Chronic use of amiodarone ? Arrhythmia?? A. fib patient a poor historian medication continued 6. Dementia ? On donepezil did continue 7. DVT prophylaxis ? SC Heparin Charges/Coding Visit Charges Inpatient E&M: 81239 Subs Hosp L2
--- NOTE | 2022-07-09 09:58 | CON.PCM.RE_ITS ---
Assessment & Plan Assessment/Plan (1) ESRD (end stage renal disease) on dialysis: PLAN: Will dialyze today. Will run him for 3.5 hours, 3K bath. Will use Crit line to assist us with fluid removal, will try to keep profile B (1) ESRD (end stage renal disease) on dialysis: COMMENT: In spite of missing a session he does not appear fluid overloaded and has normokalemia PLAN: Will dialyze today. Will run him for 3.5 hours, 3K bath. Will use Crit line to assist us with fluid removal, will try to keep profile B HPI Consult Data Date of Consult: 07/09/22 HPI Narrative Reason for Consultation: ESRD HPI Narrative: ANNE-MARIE DAVIES, is a 82 M who presents with extreme weakness. He has ESRD and has been HD dependent for a while. He is dialyzed on schedule, but missed session on Sunday due to illness. he has presented to ER with the above compliant. He has tested CoVid positive. He has functional left upper arm fistula [facility] Medical History Hyperlipidemia Hypertension Kidney failure Home Medications amiodarone 200 mg tablet 1 tab PO DAILY 03/10/22 [History Last Taken Unknown] atorvastatin 40 mg tablet 1 tab PO DAILY 03/10/22 [History Last Taken Unknown] losartan 25 mg tablet 1 tab PO DAILY 03/10/22 [History Last Taken Unknown] nifedipine 90 mg tablet,extended release 1 tab PO DAILY 03/10/22 [History Last Taken Unknown] aspirin 81 mg capsule 81 mg PO DAILY 07/08/22 [History Last Taken Unknown] donepezil 10 mg tablet 20 mg PO QHS 07/08/22 [History Last Taken Unknown] Allergy/AdvReac Type Severity Reaction Status Date / Time HEART MED Allergy PT UNSURE Uncoded 03/10/22 11:14 OF REACTION Family History Other Heart disease Hypertension Surgical History History of colon resection Social History Smoking Status: Never smoker ROS Constitutional Constitutional: Reports systems reviewed and no addt'l complaints, except as documented and as per HPI Lab / Micro Data Result Diagrams: 07/09/22 05:55 07/09/22 05:55 Labs: Laboratory Results - last 24 hr 07/09/22 05:55: WBC 5.8, RBC 3.11 L, Hgb 10.2 L, Hct 32.5 L, MCV 104.5 H, MCH 32.8 H, MCHC 31.4 L, RDW Std Deviation 53.6 H, RDW Coeff of Mauro 14.0, Plt Count 166, MPV 12.4 H, Immature Gran % (Auto) 1.200 H, Neut % (Auto) 63.2, Lymph % (Auto) 20.5, [place] % (Auto) 13.4 H, Eos % (Auto) 1.4, Baso % (Auto) 0.3, Absolute Neuts (auto) 3.6, Absolute Lymphs (auto) 1.18, Nucleated RBC % 0 07/09/22 05:55: Sodium 140, Potassium 4.5, Chloride 102, Carbon Dioxide 28.0, Anion Gap 10, BUN 48 H, Creatinine 12.30 H*, Estim Creat Clear Calc 4.79, Est GFR (MDRD) Af Amer 5 L, Est GFR (MDRD) Non-Af 4 L, BUN/Creatinine Ratio 3.9 L, Glucose 82, Calcium 7.9 L, Total Bilirubin 0.30, AST 56 H, ALT 33, Alkaline Phosphatase 79, Total Protein 6.0 L, Albumin 2.6 L, Globulin 3.4, Albumin/Globulin Ratio 0.8 L Micro: Microbiology 07/08/22 03:46 Nasal Secretion SARS-CoV-2 & FLU Antigen (Rapid) - Final SARS-CoV-2 (COVID 19)
--- NOTE | 2022-07-09 10:05 | PCM.PN.REN ---
Subjective Subjective Came over to supervise during dialysis session. He is feeling weak, but no other issues Objective Data Objective Data Vital Signs: Vital Signs Temp Pulse Resp BP Pulse Ox O2 Del Method 98.4 F 63 16 132/53 H 94 Room Air 07/09/22 04:00 07/09/22 07:36 07/09/22 04:00 07/09/22 04:00 07/09/22 04:00 07/09/22 04:00 Oxygen Delivery Method Room Air Weight: 74.843 kg Body Mass Index (BMI) 24.3 Intake & Output: Intake and Output for Last 24 Hours 07/07/22 07/08/22 07/09/22 23:59 23:59 23:59 Intake Total 430 / 430 500 / 500 Balance 430 / 430 500 / 500 Lab / Micro Data Result Diagrams: 07/09/22 05:55 07/09/22 05:55 Labs: Laboratory Results - last 24 hr 07/09/22 05:55: WBC 5.8, RBC 3.11 L, Hgb 10.2 L, Hct 32.5 L, MCV 104.5 H, MCH 32.8 H, MCHC 31.4 L, RDW Std Deviation 53.6 H, RDW Coeff of Mauro 14.0, Plt Count 166, MPV 12.4 H, Immature Gran % (Auto) 1.200 H, Neut % (Auto) 63.2, Lymph % (Auto) 20.5, [place] % (Auto) 13.4 H, Eos % (Auto) 1.4, Baso % (Auto) 0.3, Absolute Neuts (auto) 3.6, Absolute Lymphs (auto) 1.18, Nucleated RBC % 0 07/09/22 05:55: Sodium 140, Potassium 4.5, Chloride 102, Carbon Dioxide 28.0, Anion Gap 10, BUN 48 H, Creatinine 12.30 H*, Estim Creat Clear Calc 4.79, Est GFR (MDRD) Af Amer 5 L, Est GFR (MDRD) Non-Af 4 L, BUN/Creatinine Ratio 3.9 L, Glucose 82, Calcium 7.9 L, Total Bilirubin 0.30, AST 56 H, ALT 33, Alkaline Phosphatase 79, Total Protein 6.0 L, Albumin 2.6 L, Globulin 3.4, Albumin/Globulin Ratio 0.8 L Micro: Microbiology 07/08/22 03:46 Nasal Secretion SARS-CoV-2 & FLU Antigen (Rapid) - Final SARS-CoV-2 (COVID 19) Assessment & Plan Assessment/Plan (1) ESRD (end stage renal disease) on dialysis: PLAN: Will schedule next HD session for Sunday as we use Holidays Schedule (1) ESRD (end stage renal disease) on dialysis: COMMENT: Seen during dialysis session to assure smooth Tx PLAN: Will schedule next HD session for Sunday as we use Holidays Schedule
--- NOTE | 2022-07-09 10:36 | NURSING ---
0830-pts standing at bedside pulling on pt trying to pull out of bed and had been incontinent of urine all over floor and standing bare footed in it. wanting pt to get up to get out of here had gotten out of recliner chair beside pts bed in reclined positioned without putting foot rest down. when attempted to have let go of pt swinging at staff and becoming more belligerent. dr. grijalva on floor and charge entry specialist talking with nursing nursery supervisor. decision made to direct admit d/t debility and danger to pt and for social admission d/t noone to care for at home. pt to and taken upstairs to medr 3. attempted to call report to charge entry specialist but busy so message left with nicanor community recreation coordinator to call and brief overview of issues given. family notified
[2022-07-09] MEDS: Heparin 10,000 UNITS/10 ML Vial 4000 UNITS IV (11:45)
--- NOTE | 2022-07-09 15:25 | DIALYSIS ---
Hemodialysis complete. 3.5 hr run, 3k bath. Net fluid removed =2500 ml. Patient tolerated HD tx well. Left upper arm AVF: site benign, thrill and bruit present. Needle site pressure held 10 min each. Hemostasis achieved. Report given to primary RNCharity
[2022-07-09] MEDS: Amiodarone 200 MG Tablet PO (16:26)
[2022-07-09] MEDS: Aspirin 81 MG TAB.CHEW PO (16:26)
[2022-07-09] MEDS: NIFEdipine 90 MG Tablet PO (16:27)
[2022-07-09] MEDS: Losartan Potassium 25 MG Tablet PO (16:27)
[2022-07-09] MEDS: Nepro with Carbsteady 237 ML Liquid 120 ML PO (16:27)
[2022-07-09] MEDS: Atorvastatin Calcium 40 MG Tablet PO (21:16)
[2022-07-09] MEDS: Donepezil HCl 10 MG Tablet 20 MG PO (21:17)
[2022-07-10] VITALS (13 sets, daily range): BP systolic 102–134; BP diastolic 50–62; PULSE 57–71; RESP 16–18; TEMP 36.4–36.8; O2SAT 94–96
[2022-07-10 05:10] LABS: Absolute Neutrophil Count 3.8 X10^3/uL (2.0-7.7); Basophil# 0.02 X10^3/uL; Basophil% 0.4 % (0-1); Eosinophil# 0.16 X10^3/uL; Hematocrit 33.4 % (40-54); Hemoglobin 10.8 g/dL (13.0-16.5); Mean Corp Hgb Conc 32.3 g/dL (32-36); Mean Corpuscular Hgb 33.4 pg (27.0-32.0); Mean Corpuscular Volume 103.4 fL (80-94); Mean Platelet Vol. 12.5 fl (6.2-12.0); Monocyte# 0.61 X10^3/uL; Monocyte% 11.3 % (0-10); NRBC Flagged by Analyzer 0 % (0-5); Neutrophil # 3.84 X10^3/uL (2.7-7.7); Platelet Count 158 K/mm3 (150-450); RBC Distribution Width CV 13.8 % (11.6-14.6); Red Blood Count 3.23 M/mm3 (4.6-6.2); White Blood Count 5.4 K/mm3 (4.4-11.0)
[2022-07-10] MEDS: Heparin Injection (Vial) 5,000 UNIT/ML VIAL 5000 UNIT SC ×3 (05:47→21:03)
[2022-07-10 06:00] LABS: Anion Gap 10 (5-15); BUN 27 mg/dL (7-18); BUN/Creat Ratio 3.6 RATIO (10-20); Calcium,Total 7.8 mg/dL (8.5-10.1); Chloride 101 mmol/L (98-107); Creatinine, Serum 7.53 mg/dL (0.70-1.30); EST Glomerular Filtration Rate 7 mL/min (>60); Est Glom Filt Rate - Afr Amer 9 mL/min (>60); Estimated Creatinine Clearance 7.82 ml/min; Glucose 96 mg/dL (74-106); Phosphorus 4.1 mg/dL (2.5-4.9); Potassium 4.5 mmol/L (3.5-5.1); Sodium Level 138 mmol/L (136-145)
[2022-07-10 06:45] LABS: Hepatitis B Surface Antigen Non-Reactive (Nonreactive)
--- NOTE | 2022-07-10 08:01 | PN.HOSP_ITS ---
Subjective Subjective Follow-up for COVID-19 infection with generalized weakness. Patient has history of pipe smoking for less than 1 year during college days. Denies history of COPD or other chronic lung disease. No hypoxia. Objective Data Objective Data Vital Signs: Vital Signs Temp Pulse Resp BP Pulse Ox O2 Del Method 98.2 F 57 L 16 131/62 H 95 Room Air 07/10/22 05:53 07/10/22 07:00 07/10/22 05:53 07/10/22 05:53 07/10/22 05:53 07/10/22 05:53 Oxygen Delivery Method Room Air Weight: 165 lb 0.009 oz Body Mass Index (BMI) 24.3 Intake & Output: Intake and Output for Last 24 Hours 07/08/22 07/09/22 07/10/22 23:59 23:59 23:59 Intake Total 430 / 430 860 / 1100 360 / 360 Output Total 5050 / 5050 Balance 430 / 430 -4190 / -3950 360 / 360 Lab / Micro Data Result Diagrams: 07/10/22 04:21 07/10/22 04:21 Labs: Laboratory Results - last 24 hr 07/10/22 04:21: WBC 5.4, RBC 3.23 L, Hgb 10.8 L, Hct 33.4 L, MCV 103.4 H, MCH 33.4 H, MCHC 32.3, RDW Std Deviation 53.0 H, RDW Coeff of Mauro 13.8, Plt Count 15 8, MPV 12.5 H, Immature Gran % (Auto) 1.300 H, Neut % (Auto) 71.0 H, Lymph % (Auto) 13.0 L, [place] % (Auto) 11.3 H, Eos % (Auto) 3.0, Baso % (Auto) 0.4, Absolute Neuts (auto) 3.8, Absolute Lymphs (auto) 0.70 L, Nucleated RBC % 0 07/10/22 04:21: Sodium 138, Potassium 4.5, Chloride 101, Carbon Dioxide 27.0, Anion Gap 10, BUN 27 H, Creatinine 7.53 H*, Estim Creat Clear Calc 7.82, Est GFR (MDRD) Af Amer 9 L, Est GFR (MDRD) Non-Af 7 L, BUN/Creatinine Ratio 3.6 L, Glucose 96, Calcium 7.8 L, Phosphorus 4.1, Magnesium 2.0 07/10/22 04:21: Hep Bs Antigen Non-Reactive Micro: Microbiology 07/08/22 03:46 Nasal Secretion SARS-CoV-2 & FLU Antigen (Rapid) - Final SARS-CoV-2 (COVID 19) Physical Exam Narrative Physical exam General: Alert, Oriented x3, Cooperative. Fatigue HEENT: Atraumatic, PERRLA, EOMI, Normocephalic Oral: No Gingival or Mucosal Lesions/ Ulcerations Neck: Supple, No JVD, Negative Carotid Bruits Lungs: Air entry diminished in bilateral lung bases. No crepitation/rhonchi Cardiovascular: Regular rate, Regular Rhythm, Normal S1, Normal S2, No murmurs Abdomen: Bowel Sounds Present, Soft, Non Tender, Non-Distended : No renal angle tenderness. No suprapubic tenderness. Extremities: No edema, Capillary Refill Less than 3 Seconds Skin: No rashes, No breakdown Musculoskeletal: No Tenderness to Palpation of Joints or Extremities Neurological: Cranial nerves II-XII grossly intact, DTR 2+/4 and Symmetrical, Neuro grossly intact Psych/Mental Status: Flat affect. Assessment & Plan Assessment/Plan (1) General weakness: (2) COVID-19: PLAN: Plan Patient is an 82-year-old gentleman who is now vaccinated against COVID-19, with past medical history significant for end-stage renal disease, with left upper extremity fistula presented to the emergency department with generalized weaknes s tested positive for COVID admitted to a monitored bed for further management 1. Acute COVID-19 infection ? Patient presented with progressive generalized weakness. Admitted to regular nursing floor for symptom management ? 07/10/2022: Patient is frail and remains fatigued. Continue PT and OT. 2. End-stage renal disease ? On dialysis on Wednesdays and Fridays. Patient had apparently missed dialysis on Sunday consult placed to nephrology for dialysis orders ? Continue hemodialysis 3. Dyslipidemia -Patient is on statin therapy, continued at home dose 4. Hypertension - Blood pressure controlled, home medications continued with dose adjustment as needed 5. Chronic use of amiodarone ? Suspected chronic A. fib patient a poor historian medication continued 6. Dementia ? On donepezil did continue 7. DVT prophylaxis ? SC Heparin Charges/Coding Visit Charges Inpatient E&M: 98057 Subs Hosp L2
--- NOTE | 2022-07-10 10:17 | PN.RENAL_ITS ---
Subjective Subjective Following for ESRD Resting quietly. Denies any complaints. On room air. Objective Data Objective Data Vital Signs: Vital Signs Temp Pulse Resp BP Pulse Ox O2 Del Method 98.2 F 57 L 16 131/62 H 95 Room Air 07/10/22 05:53 07/10/22 07:00 07/10/22 05:53 07/10/22 05:53 07/10/22 05:53 07/10/22 05:53 Oxygen Delivery Method Room Air Weight: 74.843 kg Body Mass Index (BMI) 24.3 Intake & Output: Intake and Output for Last 24 Hours 07/08/22 07/09/22 07/10/22 23:59 23:59 23:59 Intake Total 430 / 430 860 / 1100 360 / 360 Output Total 5050 / 5050 Balance 430 / 430 -4190 / -3950 360 / 360 Lab / Micro Data Result Diagrams: 07/10/22 04:21 07/10/22 04:21 Labs: Laboratory Results - last 24 hr 07/10/22 04:21: WBC 5.4, RBC 3.23 L, Hgb 10.8 L, Hct 33.4 L, MCV 103.4 H, MCH 33.4 H, MCHC 32.3, RDW Std Deviation 53.0 H, RDW Coeff of Mauro 13.8, Plt Count 158, MPV 12.5 H, Immature Gran % (Auto) 1.300 H, Neut % (Auto) 71.0 H, Lymph % (Auto) 13.0 L, [place] % (Auto) 11.3 H, Eos % (Auto) 3.0, Baso % (Auto) 0.4, Absolute Neuts (auto) 3.8, Absolute Lymphs (auto) 0.70 L, Nucleated RBC % 0 07/10/22 04:21: Sodium 138, Potassium 4.5, Chloride 101, Carbon Dioxide 27.0, Anion Gap 10, BUN 27 H, Creatinine 7.53 H*, Estim Creat Clear Calc 7.82, Est GFR (MDRD) Af Amer 9 L, Est GFR (MDRD) Non-Af 7 L, BUN/Creatinine Ratio 3.6 L, Glucose 96, Calcium 7.8 L, Phosphorus 4.1, Magnesium 2.0 07/10/22 04:21: Hep Bs Antigen Non-Reactive Micro: Microbiology 07/08/22 03:46 Nasal Secretion SARS-CoV-2 & FLU Antigen (Rapid) - Final SARS-CoV-2 (COVID 19) Physical Exam Narrative Const: Alert and oriented x3, no apparent distress Respiratory: Lung sounds clear, no wheezes rhonchi rales noted Cardio: S1, S2, RRR Extremities: No pitting edema noted bilateral lower legs feet or arms. AV fistula left upper arm positive thrill and bruit Assessment & Plan Assessment/Plan (1) ESRD (end stage renal disease) on dialysis: (2) General weakness: (3) COVID-19: (4) Anemia in chronic kidney disease: PLAN: Plan -Patient dialyzes at [facility] in [place] on Sunday, Sunday, Sunday schedule followed by Dr. Holliday. We will plan for dialysis today over 3 hours, UF as patient/blood pressure tolerates on 2K bath. -Hemoglobin acceptable, 10.8. Does not need KRYSTA at this time. Will follow hgb trends -Blood pressures acceptable on nifedipine and losartan. Please hold BP meds morning of dialysis -Breathing acceptable, does not need supplemental oxygen at this time -Discharge planning in progress
[2022-07-10] MEDS: 0.9% Saline Lock 10 ML Syringe IV ×2 (10:23→15:56)
[2022-07-10] MEDS: Losartan Potassium 25 MG Tablet PO (10:24)
[2022-07-10] MEDS: Aspirin 81 MG TAB.CHEW PO (10:24)
[2022-07-10] MEDS: NIFEdipine 90 MG Tablet PO (10:24)
[2022-07-10] MEDS: Amiodarone 200 MG Tablet PO (10:24)
--- NOTE | 2022-07-10 12:51 | CASEMGMT ---
SW reviewed chart and noted patient is weak and therapy is recommending detention facility. SW met with patient. Introduced self and role at [facility]. SW let patient know that therapy is recommending he go to a detention facility short term to get stronger. SW explained to patient that because he has COVID there are only 3 local facilities that would consider accepting him. SW provided patient with a list of detention facility providers including quality and resource use data and consistent with patient?s preferred geographic region, medical needs, and insurance network were provided from the [facility] Guide. SW went over the 3 facilities on the list. Patient chose [facility] as he could get his dialysis right there in the building. Patient's has Dementia and is a patient on MS3 at [facility] and patient asked if his could go to [facility] also. SW let patient know SW will notify the SW that is working with his of this request. ERINN spoke with Sonia d/c materials assistant and asked her to please send a referral to [facility]. ERINN also called ERINN Rajput working with patient's and let her know patient would like for his to go to [facility] also. ERINN called Kelly at [facility] and left her a voice mail requesting a return call. Patient normally goes to [facility] for dialysis and [facility] has [facility] dialysis. Plan: [facility] pending their acceptance and patient being medically ready. Rose Rose AQUATICS LIFEGUARD JUDIE
--- NOTE | 2022-07-10 13:00 | CASEMGMT ---
Discharge Computer Aided Design Technician This senior mortgage underwriter sent referral to [facility] via [facility]. Seema MARCELO Gate Tender
--- NOTE | 2022-07-10 13:20 | CASEMGMT ---
Call to [facility] and they state pt's chair time is MWF at 0815 arrival, 0830 put on and per Charito, they can do COVID pt at their clinic but she is not sure if his chair time will be the same. Charito states she will find out and call this RN CM back. Mainor PLASENCIA updated, voices understanding. SSthumberto LEE CM
--- NOTE | 2022-07-10 13:40 | CASEMGMT ---
Discharge Line Out Worker [facility] accepted patient. Patient can go to [facility] when medically ready. Seema MARCELO Counselor Camp
--- NOTE | 2022-07-10 14:10 | CASEMGMT ---
Discharge Die Designer Apprentice This script writer sent over Dialysis information to [facility] for a new referral since [facility] did not have transport to [facility]. Patient will be transferring to [facility] in house [place]. Seema MARCELO Pipe Inspector
--- NOTE | 2022-07-10 16:31 | DIALYSIS ---
Hemodialysis extra treatment completed, No Fluid removed. Patient was mildly hypotensive throughout most of treatment.
[2022-07-10] MEDS: guaiFENesin/D-Methorphan TAB.SR.12H 1 TABLET PO (18:47)
[2022-07-10] MEDS: Atorvastatin Calcium 40 MG Tablet PO (21:06)
[2022-07-11 03:37] VITALS: BP 129/61; PULSE 56; RESP 16; TEMP 36.4; O2SAT 95
[2022-07-11 04:23] VITALS: PULSE 55
[2022-07-11 05:29] LABS: Absolute Lymphocyte Count 0.96 X10^3/uL (0.83-4.51); Absolute Neutrophil Count 4.3 X10^3/uL (2.0-7.7); Basophil# 0.02 X10^3/uL; Basophil% 0.3 % (0-1); Eosinophil# 0.19 X10^3/uL; Eosinophils% 3.2 % (0-5); Hematocrit 33.6 % (40-54); Hemoglobin 10.7 g/dL (13.0-16.5); Lymphocyte # 0.96 X10^3/ul (0.83-4.51); Lymphocyte % 15.9 % (19-41); Mean Corp Hgb Conc 31.8 g/dL (32-36); Mean Corpuscular Hgb 32.2 pg (27.0-32.0); Mean Corpuscular Volume 101.2 fL (80-94); Mean Platelet Vol. 12.9 fl (6.2-12.0); Monocyte# 0.48 X10^3/uL; NRBC Flagged by Analyzer 0 % (0-5); Neutrophil # 4.29 X10^3/uL (2.7-7.7); Neutrophil % 71.3 % (47-70); Platelet Count 151 K/mm3 (150-450); RBC Distribution Width CV 13.7 % (11.6-14.6); Red Blood Count 3.32 M/mm3 (4.6-6.2)
[2022-07-11 05:48] LABS: Anion Gap 6 (5-15); BUN 22 mg/dL (7-18); BUN/Creat Ratio 3.6 RATIO (10-20); Calcium,Total 7.6 mg/dL (8.5-10.1); Chloride 102 mmol/L (98-107); Creatinine, Serum 6.15 mg/dL (0.70-1.30); EST Glomerular Filtration Rate 9 mL/min (>60); Est Glom Filt Rate - Afr Amer 11 mL/min (>60); Estimated Creatinine Clearance 9.58 ml/min; Glucose 86 mg/dL (74-106); Potassium 4.2 mmol/L (3.5-5.1); Sodium Level 138 mmol/L (136-145)
[2022-07-11] MEDS: Heparin Injection (Vial) 5,000 UNIT/ML VIAL 5000 UNIT SC (06:30)
[2022-07-11 07:34] VITALS: PULSE 51
--- NOTE | 2022-07-11 08:58 | PCM.PN.HOSP ---
Objective Data Objective Data Vital Signs: Vital Signs Temp Pulse Resp BP Pulse Ox O2 Del Method 97.5 F L 51 L 16 129/61 H 95 Room Air 07/11/22 03:37 07/11/22 07:34 07/11/22 03:37 07/11/22 03:37 07/11/22 03:37 07/11/22 03:39 Oxygen Delivery Method Room Air Weight: 165 lb 0.009 oz Body Mass Index (BMI) 24.3 Intake & Output: Intake and Output for Last 24 Hours 07/09/22 07/10/22 07/11/22 23:59 23:59 23:59 Intake Total 860 / 1100 600 / 600 Output Total 5050 / 5050 0 / 0 Balance -4190 / -3950 600 / 600 Lab / Micro Data Result Diagrams: 07/11/22 04:01 07/11/22 04:01 Labs: Laboratory Results - last 24 hr 07/11/22 04:01: WBC 6.0, RBC 3.32 L, Hgb 10.7 L, Hct 33.6 L, MCV 101.2 H, MCH 32.2 H, MCHC 31.8 L, RDW Std Deviation 51.0 H, RDW Coeff of Mauro 13.7, Plt Count 151, MPV 12.9 H, Immature Gran % (Auto) 1.300 H, Neut % (Auto) 71.3 H, Lymph % (Auto) 15.9 L, [place] % (Auto) 8.0, Eos % (Auto) 3.2, Baso % (Auto) 0.3, Absolute Neuts (auto) 4.3, Absolute Lymphs (auto) 0.96, Nucleated RBC % 0 07/11/22 04:01: Sodium 138, Potassium 4.2, Chloride 102, Carbon Dioxide 30.0, Anion Gap 6, BUN 22 H, Creatinine 6.15 H, Estim Creat Clear Calc 9.58, Est GFR (MDRD) Af Amer 11 L, Est GFR (MDRD) Non-Af 9 L, BUN/Creatinine Ratio 3.6 L, Glucose 86, Calcium 7.6 L Micro: Microbiology 07/08/22 03:45 Blood Culture (Wb) - Right Forearm Blood Culture - Preliminary No growth in 48 hours. 07/08/22 03:34 Blood Culture (Wb) - Right Forearm Blood Culture - Preliminary No growth in 48 hours. 07/08/22 03:46 Nasal Secretion SARS-CoV-2 & FLU Antigen (Rapid) - Final SARS-CoV-2 (COVID 19) Physical Exam Narrative Physical exam General: Alert, Oriented x3, Cooperative. Fatigue HEENT: Atraumatic, PERRLA, EOMI, Normocephalic Oral: No Gingival or Mucosal Lesions/ Ulcerations Neck: Supple, No JVD, Negative Carotid Bruits Lungs: Air entry diminished in bilateral lung bases. No crepitation/rhonchi Cardiovascular: Regular rate, Regular Rhythm, Normal S1, Normal S2, No murmurs Abdomen: Bowel Sounds Present, Soft, Non Tender, Non-Distended : No renal angle tenderness. No suprapubic tenderness. Extremities: No edema, Capillary Refill Less than 3 Seconds Skin: No rashes, No breakdown Musculoskeletal: No Tenderness to Palpation of Joints or Extremities Neurological: Cranial nerves II-XII grossly intact, DTR 2+/4 and Symmetrical, Neuro grossly intact Psych/Mental Status: Flat affect. Assessment & Plan Assessment/Plan (1) General weakness: (2) COVID-19: PLAN: Plan Patient is an 82-year-old gentleman who is now vaccinated against COVID-19, with past medical history significant for end-stage renal disease, with left upper extremity fistula presented to the emergency department with generalized weakness tested positive for COVID admitted to a monitored bed for further management 1. Acute COVID-19 infection ? Patient presented with progressive generalized weakness. Admitted to regular nursing floor for symptom management ? 07/10/2022: Patient is frail and remains fatigued. Continue PT and OT. 2. End-stage renal disease ? On dialysis on Wednesdays and Fridays. Patient had apparently missed dialysis on Sunday consult placed to nephrology for dialysis orders ? Continue hemodialysis 3. Dyslipidemia -Patient is on statin therapy, continued at home dose 4. Hypertension - Blood pressure controlled, home medications continued with dose adjustment as needed 5. Chronic use of amiodarone ? Suspected chronic A. fib patient a poor historian medication continued 6. Dementia ? On donepezil did continue 7. DVT prophylaxis ? SC Heparin
[2022-07-11 09:04] VITALS: BP 133/66; PULSE 61; RESP 16; TEMP 36.6; O2SAT 98
[2022-07-11] MEDS: NIFEdipine 90 MG Tablet PO (09:08)
[2022-07-11] MEDS: Losartan Potassium 25 MG Tablet PO (09:08)
[2022-07-11] MEDS: Amiodarone 200 MG Tablet PO (09:08)
[2022-07-11] MEDS: Aspirin 81 MG TAB.CHEW PO (09:08)
[2022-07-11] MEDS: Menthol/Lanolin/Calamine/Znox 113 GM Tube 1 APPLIC TOPICAL (09:08)
[2022-07-11 09:32] VITALS: BP 133/66; PULSE 61; RESP 16; TEMP 36.6; O2SAT 98
--- NOTE | 2022-07-11 10:28 | PCM.TXEXTCAR ---
Diet Diet Order/Speech Therapy: 07/08/22 07:45 Diet: Renal - General Food consistency:: Regular Liquid Consistency:: Regular/Thin Type of Dietary Supplement:: Nepro Diet Comments: 120ml Nepro TID w/ meals Routine Orders/Code Status Suppository Type: Dulcolax 10mg Suppository Frequency: Daily PRN Code Status: Full Code Wound(s) L Wrist: Wound Type: Skin Tear Therapies Weight Bearing: Weight bearing as tolerated Extremity Affected:: Bilateral Lower Physical Therapy: Eval and Treat Occupational Therapy: Eval and Treat Speech Therapy: Eval and Treat Problem/Diagnosis (1) General weakness: Status: Acute Code(s): R53.1 - Weakness (2) COVID-19: Status: Acute Code(s): U07.1 - COVID-19 Plan Patient is an 82-year-old gentleman who is now vaccinated against COVID-19, with past medical history significant for end-stage renal disease, with left upper extremity fistula presented to the emergency department with generalized weakness tested positive for COVID admitted to a monitored bed for further management 1. Acute COVID-19 infection ? Patient presented with progressive generalized weakness. Admitted to regular nursing floor for symptom management ? Continue PT and OT 2. End-stage renal disease ? On dialysis on Wednesdays and Fridays. Patient had apparently missed dialysis on Sunday consult placed to nephrology for dialysis orders ? Continue hemodialysis 3. Dyslipidemia -Patient is on statin therapy, continued at home dose 4. Hypertension - Blood pressure controlled, home medications continued with dose adjustment as needed 5. Chronic use of amiodarone ? Suspected chronic A. fib patient a poor historian medication continued 6. Dementia ? On donepezil did continue 7. DVT prophylaxis ? SC Heparin Allergies/Procedures Done in Hospital Allergies HEART MED Allergy (Uncoded 03/10/22 11:14) PT UNSURE OF REACTION Type of Care/Length of Stay Estimated LOS: Convalescent Care Less Than 30 days Type of Care Needed: Skilled Rehab Potential: Good Prognosis: Good Additional Orders/Day of Discharge Day of Discharge: 07/11/22 Dietary and Speech Recommendations Dietitian Recommendations/Changes: Continue general renal diet; will add 120 ml PO Nepro TID w/ meals. Discharge Plan Admission Admit Date/Time: 07/08/22 10:43 Primary Reason for Your Visit: COVID-19 infection, fatigue, ESRD on hemodialysis Attending Provider: Brian Harrisno Primary Care Provider: Care Physician,No Primary Consulting Providers: Balwinder Erickson ; Ty Breaux ; Sharif Shanks Discharge Orders/Prescriptions Prescriptions: New Mucinex DM 30-600 mg Tablet Extended Release 12 Hr 2 tab PO BID 5 Days Qty: 20 0RF Continued atorvastatin 40 mg tablet 1 tab PO DAILY nifedipine 90 mg tablet extended release 1 tab PO DAILY Label Comments: TAKE 1 TABLET BY MOUTH ONCE DAILY amiodarone 200 mg tablet 1 tab PO DAILY losartan 25 mg tablet 1 tab PO DAILY donepezil 10 mg Tablet 20 mg PO QHS aspirin 81 mg Capsule 81 mg PO DAILY Referrals / Follow Up: Ty Breaux MD [Med Staff - Consulting] - Within 1 Month Care Physician,No Primary [Primary Care Provider] - Disposition Disposition (needs filled in before D/C Order can be placed): Senior Living Facility
--- NOTE | 2022-07-11 10:41 | CASEMGMT ---
Discharge Boat Canvas Installer New referral was sent to Paresh by Chloe at [facility]. Cydney at [facility] is waiting for a accepting doctor to follow patient at [facility]. Patient can't be discharged from [facility] until we get an accepting doctor. ERINN Rose notified. Seema MARCELO Machine Worker
--- NOTE | 2022-07-11 12:00 | CASEMGMT ---
Discharge Phlebotomy Tech CARMEN reached out. Green light for patient to go to [facility] when medically ready. Dialysis with [facility] is set up and taken care of. ERINN Rose and DR. Harrison notified. Seema MARCELO Shredding Machine Operator
--- NOTE | 2022-07-11 12:31 | PCM.DC.SUM ---
Providers Date of Admission: 07/08/22 Date of Discharge: 07/11/22 Primary Care Physician: Ruby Primary Care Phys Consultations 07/08/22 07:45 Consult: Nephrology Routine Consulting Provider: Ty Breaux Reason for Consult: Dialysis, his biometric technician is in [place] Dr. 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 Reason For Visit: ESRD WITH WEAKNESS AND COVID Diagnosis Discharge Diagnosis (1) General weakness: Status: Acute Code(s): R53.1 - Weakness (2) COVID-19: Status: Acute Code(s): U07.1 - COVID-19 Medications at Discharge Home Medications amiodarone 200 mg tablet 1 tab PO DAILY 03/10/22 atorvastatin 40 mg tablet 1 tab PO DAILY 03/10/22 losartan 25 mg tablet 1 tab PO DAILY 03/10/22 nifedipine 90 mg tablet,extended release 1 tab PO DAILY 03/10/22 aspirin 81 mg capsule 81 mg PO DAILY 07/08/22 donepezil 10 mg tablet 20 mg PO QHS 07/08/22 dextromethorphan-guaifenesin 30 mg-600 mg tablet extended hr (Mucinex DM) 2 tab PO BID 5 days #20 tabs 07/11/22 Hospital Course Summary of Care Provided Hospital Course: The patient is an 82-year-old gentleman who is now vaccinated against COVID-19, with past medical history significant for end-stage renal disease, with left upper extremity fistula presented to the emergency department with generalized weakness tested positive for COVID admitted to a monitored bed for further management 1.? Fatigue from acute COVID-19 infection ? Patient presented with progressive generalized weakness.? Admitted to regular nursing floor for symptom management ? Continue PT and OT. Mild cough on Mucinex DM. PT and OT recommended SNF discharge. 2.? End-stage renal disease ? On dialysis on Wednesdays and Fridays.? Patient had apparently missed dialysis on Sunday. Patient seen by biometric technician. ? Continue hemodialysis 3.? Dyslipidemia -Patient is on statin therapy, continued at home dose 4.? Hypertension - Blood pressure controlled, home medications continued with dose adjustment as needed 5.? Chronic use of amiodarone ? Suspected chronic A. fib patient a poor historian medication continued 6.? Dementia ? On donepezil did continue 7.? DVT prophylaxis ? SC Heparin Discharge medication reconciliation done. Discharge follow-up instructions completed. Discharge process discussed with the patient and all questions were answered to patient's satisfaction. Total time spent, exact 35 minutes on discharge meds reconciliation, examination, coordination of care with nurses and ancillary staff, review of imaging and blood test and discussion with the patient on follow-up instructions. Physical Exam Narrative Seen and examined. Patient still has mild cough. Dose of Mucinex D, 600-30 mg, 2 tablets twice daily. Physical exam General: Alert, Oriented x3, Cooperative. Fatigue HEENT: Atraumatic, PERRLA, EOMI, Normocephalic Oral: No Gingival or Mucosal Lesions/ Ulcerations Neck: Supple, No JVD, Negative Carotid Bruits Lungs: Air entry diminished in bilateral lung bases. No crepitation/rhonchi Cardiovascular: Regular rate, Regular Rhythm, Normal S1, Normal S2, No murmurs Abdomen: Bowel Sounds Present, Soft, Non Tender, Non-Distended : No renal angle tenderness. No suprapubic tenderness. Extremities: No edema, Capillary Refill Less than 3 Seconds Skin: No rashes, No breakdown Musculoskeletal: No Tenderness to Palpation of Joints or Extremities Neurological: Cranial nerves II-XII grossly intact, DTR 2+/4 and Symmetrical, Neuro grossly intact Psych/Mental Status: Flat affect. Weight / BMI Weight Weight: 165 lb 0.009 oz Body Mass Index (BMI) 24.3 ABG / Lab / Microbiology Data Result Diagrams: 07/11/22 04:01 07/11/22 04:01 Laboratory: Laboratory Results - last 24 hr 07/11/22 04:01: WBC 6.0, RBC 3.32 L, Hgb 10.7 L, Hct 33.6 L, MCV 101.2 H, MCH 32.2 H, MCHC 31.8 L, RDW Std Deviation 51.0 H, RDW Coeff of Mauro 13.7, Plt Count 151, MPV 12.9 H, Immature Gran % (Auto) 1.300 H, Neut % (Auto) 71.3 H, Lymph % (Auto) 15.9 L, [place] % (Auto) 8.0, Eos % (Auto) 3.2, Baso % (Auto) 0.3, Absolute Neuts (auto) 4.3, Absolute Lymphs (auto) 0.96, Nucleated RBC % 0 07/11/22 04:01: Sodium 138, Potassium 4.2, Chloride 102, Carbon Dioxide 30.0, Anion Gap 6, BUN 22 H, Creatinine 6.15 H, Estim Creat Clear Calc 9.58, Est GFR (MDRD) Af Amer 11 L, Est GFR (MDRD) Non-Af 9 L, BUN/Creatinine Ratio 3.6 L, Glucose 86, Calcium 7.6 L Microbiology: Microbiology 07/08/22 03:45 Blood Culture (Wb) - Right Forearm Blood Culture - Preliminary No growth in 48 hours. 07/08/22 03:34 Blood Culture (Wb) - Right Forearm Blood Culture - Preliminary No growth in 48 hours. 07/08/22 03:46 Nasal Secretion SARS-CoV-2 & FLU Antigen (Rapid) - Final SARS-CoV-2 (COVID 19) Meaningful Use Info Meaningful Use Diagnoses (Choose all that apply): None applicable Discharge Plan Admission Admit Date/Time: 07/08/22 10:43 Primary Reason for Your Visit: COVID-19 infection, fatigue, ESRD on hemodialysis Attending Provider: Brian Harrison Primary Care Provider: Care Physician,No Primary Consulting Providers: Balwinder Erickson ; Ty Breaux ; Sharif Shanks Discharge Orders/Prescriptions Prescriptions: New Mucinex DM 30-600 mg Tablet Extended Release 12 Hr 2 tab PO BID 5 Days Qty: 20 0RF Continued atorvastatin 40 mg tablet 1 tab PO DAILY nifedipine 90 mg tablet extended release 1 tab PO DAILY Label Comments: TAKE 1 TABLET BY MOUTH ONCE DAILY amiodarone 200 mg tablet 1 tab PO DAILY losartan 25 mg tablet 1 tab PO DAILY donepezil 10 mg Tablet 20 mg PO QHS aspirin 81 mg Capsule 81 mg PO DAILY Referrals / Follow Up: Ty Breaux MD [Med Staff - Consulting] - Within 1 Month Care Physician,No Primary [Primary Care Provider] - Disposition Disposition (needs filled in before D/C Order can be placed): [facility] Facility Charges/Coding Visit Charges Inpatient E&M: 01001 Disch Hosp
--- NOTE | 2022-07-11 12:37 | PN.RENAL_ITS ---
Subjective Subjective Sitting in bed, no complaints. No overnight events. Objective Data Objective Data Vital Signs: Vital Signs Temp Pulse Resp BP Pulse Ox O2 Del Method 97.9 F 61 16 133/66 H 98 Room Air 07/11/22 09:32 07/11/22 09:32 07/11/22 09:32 07/11/22 09:32 07/11/22 09:32 07/11/22 09:32 Oxygen Delivery Method Room Air Weight: 74.843 kg Body Mass Index (BMI) 24.3 Intake & Output: Intake and Output for Last 24 Hours 07/09/22 07/10/22 07/11/22 23:59 23:59 23:59 Intake Total 860 / 1100 600 / 600 Output Total 5050 / 5050 0 / 0 Balance -4190 / -3950 600 / 600 Lab / Micro Data Result Diagrams: 07/11/22 04:01 07/11/22 04:01 Labs: Laboratory Results - last 24 hr 07/11/22 04:01: WBC 6.0, RBC 3.32 L, Hgb 10.7 L, Hct 33.6 L, MCV 101.2 H, MCH 32.2 H, MCHC 31.8 L, RDW Std Deviation 51.0 H, RDW Coeff of Mauro 13.7, Plt Count 151, MPV 12.9 H, Immature Gran % (Auto) 1.300 H, Neut % (Auto) 71.3 H, Lymph % (Auto) 15.9 L, [place] % (Auto) 8.0, Eos % (Auto) 3.2, Baso % (Auto) 0.3, Absolute Neuts (auto) 4.3, Absolute Lymphs (auto) 0.96, Nucleated RBC % 0 07/11/22 04:01: Sodium 138, Potassium 4.2, Chloride 102, Carbon Dioxide 30.0, Anion Gap 6, BUN 22 H, Creatinine 6.15 H, Estim Creat Clear Calc 9.58, Est GFR (MDRD) Af Amer 11 L, Est GFR (MDRD) Non-Af 9 L, BUN/Creatinine Ratio 3.6 L, Glucose 86, Calcium 7.6 L Micro: Microbiology 07/08/22 03:45 Blood Culture (Wb) - Right Forearm Blood Culture - Preliminary No growth in 48 hours. 07/08/22 03:34 Blood Culture (Wb) - Right Forearm Blood Culture - Preliminary No growth in 48 hours. 07/08/22 03:46 Nasal Secretion SARS-CoV-2 & FLU Antigen (Rapid) - Final SARS-CoV-2 (COVID 19) Physical Exam Narrative Const: Alert and oriented x3, no apparent distress Respiratory: Lung sounds clear, no wheezes rhonchi rales noted. On room air Cardio: S1, S2, RRR Extremities: No pitting edema noted bilateral lower legs feet or arms. AV fistula left upper arm positive thrill and bruit. dressing intact with old blood noted to dressing. Assessment & Plan Assessment/Plan (1) ESRD (end stage renal disease) on dialysis: (2) General weakness: (3) COVID-19: (4) Anemia in chronic kidney disease: PLAN: Plan -Patient dialyzes at [facility] in [place] on Sunday, Sunday, Sunday schedule followed by Dr. Holliday. Tolerated HD 07/10. No acute indication for dialysis today. Next dialysis tomorrow. -Hemoglobin acceptable, 10.7. Does not need KRYSTA at this time. Will follow hgb trends -Blood pressures acceptable on nifedipine and losartan. Please hold BP meds morning of dialysis -Breathing acceptable, does not need supplemental oxygen at this time -Discharge planning in progress, planning for discharge to [facility]. Dialysis arr anged at [facility].
[2022-07-11 13:29] VITALS: BP 142/58; PULSE 59; RESP 16; TEMP 36.4; O2SAT 96
--- NOTE | 2022-07-11 13:31 | CASEMGMT ---
Discharge Insurance Healthcare Consultant This procedure writer sent d/c orders to [facility] via [facility]. Wheel chair transport set up with [facility] with a 3:00pm supervisor opening and picking time. Nursing staff and patient made aware. Seema MARCELO Neurology Technologist
--- NOTE | 2022-07-11 13:33 | CASEMGMT ---
Patient is ready for discharge to [facility]. ERINN spoke with patient. SW let patient know he will be going to [facility] today. SW also let patient know that his will be leaving today as well. Patient thanked ERINN for the update. Sonia d/c records assistant will work on d/c. Plan: d/c to [facility] under skilled level of care on a convalescent stay. Physicians will transport patient via wheelchair van. Rose DIMAS
--- NOTE | 2022-07-11 14:03 | PHA.DC.MR ---
Pharmacy Service has performed discharge medication reconciliation for this patient. The patient's discharge medication list was reviewed for discrepancies and discrepancies were resolved. Home Medications amiodarone 200 mg tablet 1 tab PO DAILY 03/10/22 atorvastatin 40 mg tablet 1 tab PO DAILY 03/10/22 losartan 25 mg tablet 1 tab PO DAILY 03/10/22 nifedipine 90 mg tablet,extended release 1 tab PO DAILY 03/10/22 aspirin 81 mg capsule 81 mg PO DAILY 07/08/22 donepezil 10 mg tablet 20 mg PO QHS 07/08/22 dextromethorphan-guaifenesin 30 mg-600 mg tablet extended [id number] hr (Mucinex DM) 2 tab PO BID 5 days #20 tabs 07/11/22
--- NOTE | 2022-07-11 14:37 | NURSING ---
Report called to JESUS Ayoub at [phone].
== END 2022-07-11 15:20 | DRG 682 ==
LOC: ED 06:07 → PCU 06:50
PROVIDERS: Internal Medicine; Internal Medicine Nephrology; Admitting Provider Family Medicine; Emergency Provider Emergency Medicine; Visit Provider Internal Medicine
DX: I12.0 Hypertensive chronic kidney disease with stage 5 chronic kidney disease or end stage renal disease (principal); U07.1 COVID-19; N18.6 End stage renal disease; I48.20 Chronic atrial fibrillation, unspecified; D63.1 Anemia in chronic kidney disease; F03.90 Unspecified dementia, unspecified severity, without behavioral disturbance, psychotic disturbance, mood disturbance, and anxiety; Z99.2 Dependence on renal dialysis; E78.5 Hyperlipidemia, unspecified; Z28.310 Unvaccinated for COVID-19; R53.1 Weakness; Z79.82 Long term (current) use of aspirin; Z79.899 Other long term (current) drug therapy; Z87.891 Personal history of nicotine dependence
CPT/HCPCS: 36415; 71045; 80048; 80053; 80076; 81001; 83735; 83880; 84100; 84484; 85025; 85610; 85730; 87040; 87340; 87428; 90937; 93005; 97110; 97162; 97166; 97535; 97802; 99285; J7030; P9612; A4216; G0257; J1940

== ENCOUNTER 2022-07-18 07:50 | Emergency (ER) | payer MEDICARE, BC, SELFPAY ==
[2022-07-18 07:51] VITALS: BP 139/52; PULSE 61; RESP 16; TEMP 36.1; O2SAT 93; BMI 23.7
--- NOTE | 2022-07-18 08:05 | EDS_ITS ---
HPI History of Present Illness Chief Complaint: Seizure Narrative Narrative: 82-year-old male past medical history of end-stage renal disease presents via EMS from [facility], [place] with questionable seizure activity. Patient denies any loss of consciousness. He states that he was recently diagnosed and admitted at [facility] for COVID-19 and has been there for 5 to 6 days. He states he has not been eating well because of his distaste for the food. He states he does not get a good night sleep. This morning, he awoke at approximately an hour ago he states he was last on the commode too long. He was trying to have a bowel movement. A few days ago he had diarrhea but he was given a pill and now complains of constipation. He states that when he went to stand up with assistance, he felt lightheaded. While he denies any loss of consciousness, EMS and halfway facility report that he had a syncopal episode for less than a minute with possible convulsions. There was no loss of bowel or bladder or postictal.. He states he gets dialysis Sunday, Sunday, Sunday, and Fridays. He is unsure if he only gets partial dialysis on these multiple days but states he went yesterday. No fevers or chills. He denies that he is in pain anywhere specially his abdomen. He has occasional cough but has a recent diagnosis of COVID-19. [facility] Medical History COVID-19 Dementia Hyperlipidemia Hypertension Kidney failure Home Medications amiodarone 200 mg tablet 1 tab PO DAILY 03/10/22 [History Last Taken Unknown] atorvastatin 40 mg tablet 1 tab PO DAILY 03/10/22 [History Last Taken Unknown] losartan 25 mg tablet 1 tab PO DAILY 03/10/22 [History Last Taken Unknown] nifedipine 90 mg tablet,extended release 1 tab PO DAILY 03/10/22 [History Last Taken Unknown] aspirin 81 mg capsule 81 mg PO DAILY 07/08/22 [History Last Taken Unknown] donepezil 10 mg tablet 20 mg PO QHS 07/08/22 [History Last Taken Unknown] dextromethorphan-guaifenesin 30 mg-600 mg tablet extended hr (Mucinex DM) 2 tab PO BID 5 days #20 tabs 11/22/22 [Rx Last Taken Unknown] Allergy/AdvReac Type Severity Reaction Status Date / Time HEART MED Allergy PT UNSURE Uncoded 07/18/22 07:51 OF REACTION Family History Other Heart disease Hypertension Surgical History History of colon resection Social History Smoking Status: Never smoker ROS ROS ED ROS Narrative Constitutional: No fever, no chills. HEENT: No sore throat. No neck pain. No loss of vision. No rhinorrhea. Cardiovascular: No chest pain. No palpitations. No pedal edema. Respiratory: Occasional cough, no shortness of breath. Abdominal: No abdominal pain. No nausea. No vomiting. Diarrhea few days ago- resolved Genitourinary: No dysuria. No hematuria. Rarely makes urine secondary to end- stage renal disease. Musculoskeletal: No myalgias. No arthralgias. Neurologic: No headaches. No dizziness. Positive lightheadedness worse with standing, and after sitting on commode. Skin: No rash. No change in color. Psychiatric: No depression. No anxiety. EXAM Physical Exam Narrative Exam Narrative: Afebrile. Vital signs noted. HEENT: Normocephalic. Atraumatic. PERRL, EOMI. Neck soft and supple. No point tenderness or step off. Mucous membranes moist Cardiovascular: Regular rate and rhythm. No murmurs, rubs, or gallops appreciated. Respiratory: No tachypnea. Lungs clear to auscultation bilaterally. Gastrointestinal: Abdomen soft, nontender, with normoactive bowel sounds. No rebound or guarding. Neurological: Awake. Alert. Oriented x3 nonfocal, nonlateralizing. Skin: No rash. Normal color. No pallor. Musculoskeletal: No pedal edema. Full range of motion extremities. Fistula in left upper extremity with audible thrill Const Vital Signs: 07/18/22 07:51 07/18/22 10:38 Temperature 96.9 F L Temperature Source Oral Pulse Rate 61 62 Respiratory Rate 16 18 Blood Pressure 139/52 H 159/55 H Blood Pressure Mean 81 89 Pulse Ox 93 94 Oxygen Delivery Method Room Air Room Air MDM MDM MDM Narrative Medical decision making narrative: Comprehensive work-up was pursued. The patient is not postictal. There has been no seizure activity witnessed here in the emergency department, and RN documents that it was not thought that he had a seizure, that it was more generalized weakness. CBC was obtained and he has normal white count of 6.5, hemoglobin stable at 12.2 with hematocrit 37.3. Platelet count normal at 228. Sodium slightly low at 132 with chloride 94 consistent with mild dehydration. Creatinine is elevated at 7.8 consistent with his end-stage renal disease. Lactic acid is normal at 1.8 which leads me to believe that he did not have any seizure this morning. Prolactin is pending. Chest x-ray interpreted by myself does show bilateral increased markings in the bases, but he has a recent history of COVID. Pulse ox is normal at 94% on room air. At this point in time, upon repeat examination, patient states he is feeling improved. I feel he be discharged back to [facility] in stable condition, and I do not feel that he requires any admission at this time. Disposition is discharged home in stable condition. Lab Data Attestation: I reviewed the patient's lab results. Labs: Laboratory Results - last 24 hr 07/18/22 07/18/22 07/18/22 07:59 07:59 08:45 WBC 6.5 RBC 3.71 L Hgb 12.2 L Hct 37.3 L MCV 100.5 H MCH 32.9 H MCHC 32.7 RDW Std Deviation 50.7 H RDW Coeff of Mauro 13.9 Plt Count 228 MPV 12.3 H Immature Gran % (Auto) 2.600 H Neut % (Auto) 62.5 Lymph % (Auto) 18.1 L [place] % (Auto) 13.7 H Eos % (Auto) 2.6 Baso % (Auto) 0.5 Absolute Neuts (auto) 4.1 Absolute Lymphs (auto) 1.17 Nucleated RBC % 0 Sodium 132 L Potassium 4.6 Chloride 94 L Carbon Dioxide 29.0 Anion Gap 9 BUN 38 H Creatinine 7.80 H* Estim Creat Clear Calc 7.55 Est GFR (MDRD) Af Amer 9 L Est GFR (MDRD) Non-Af 7 L BUN/Creatinine Ratio 4.9 L Glucose 154 H Lactic Acid 1.8 Calcium 8.4 L Total Bilirubin 1.60 H AST 30 ALT 21 Alkaline Phosphatase 83 Total Protein 7.2 Albumin 2.9 L Globulin 4.3 H Albumin/Globulin Ratio 0.7 L Prolactin 29.1 Radiography Diagnostic Testing: Clinical Impression(s) from Imaging Studies Chest X-Ray 07/18/22 08:28 IMPRESSION: Persistent mild increased markings at the lung bases worse on the left side with blunting of the left costophrenic angle. There has been improved aeration as compared to prior study. Electronically Signed: Georges Hodgson MD at 8:39 EST , Discharge Plan Triage Chief Complaint: Seizure ED Provider: Deepak Freeman Dx/Rx/DC Orders Clinical Impression: General weakness, Lightheadedness, ESRD (end stage renal disease) Instructions: ED Chronic Kidney Disease (CKD), ED Weakness (Uncertain Cause) Prescriptions: No Action atorvastatin 40 mg tablet 1 tab PO DAILY nifedipine 90 mg tablet extended release 1 tab PO DAILY Label Comments: TAKE 1 TABLET BY MOUTH ONCE DAILY amiodarone 200 mg tablet 1 tab PO DAILY losartan 25 mg tablet 1 tab PO DAILY donepezil 10 mg Tablet 20 mg PO QHS aspirin 81 mg Capsule 81 mg PO DAILY Mucinex DM 30-600 mg Tablet Extended Release 12 Hr 2 tab PO BID 5 Days Qty: 20 0RF Primary Care Provider: Care Physician,No Primary Referrals: Yadira Ch MD [Non-Staff] - As soon as possible Care Physician,No Primary [Primary Care Provider] - Disposition Disposition: [facility] Facility Discharge Location: [facility]
[2022-07-18 08:18] LABS: Absolute Lymphocyte Count 1.17 X10^3/uL (0.83-4.51); Absolute Neutrophil Count 4.1 X10^3/uL (2.0-7.7); Basophil# 0.03 X10^3/uL; Basophil% 0.5 % (0-1); Eosinophil# 0.17 X10^3/uL; Eosinophils% 2.6 % (0-5); Hematocrit 37.3 % (40-54); Hemoglobin 12.2 g/dL (13.0-16.5); Lymphocyte # 1.17 X10^3/ul (0.83-4.51); Lymphocyte % 18.1 % (19-41); Mean Corp Hgb Conc 32.7 g/dL (32-36); Mean Corpuscular Hgb 32.9 pg (27.0-32.0); Mean Corpuscular Volume 100.5 fL (80-94); Mean Platelet Vol. 12.3 fl (6.2-12.0); Monocyte# 0.89 X10^3/uL; Monocyte% 13.7 % (0-10); NRBC Flagged by Analyzer 0 % (0-5); Neutrophil # 4.05 X10^3/uL (2.7-7.7); Neutrophil % 62.5 % (47-70); Platelet Count 228 K/mm3 (150-450); RBC Distribution Width CV 13.9 % (11.6-14.6); RBC Distribution Width SD 50.7 fl (35.1-43.9); Red Blood Count 3.71 M/mm3 (4.6-6.2); White Blood Count 6.5 K/mm3 (4.4-11.0)
--- NOTE | 2022-07-18 08:28 | RAD_ITS ---
STUDY: X-RAY CHEST REASON FOR EXAM: Male, 82 years old. Cough . Weakness. Seizures. TECHNIQUE: Single AP portable view of the chest. COMPARISON: Comparison is made with prior study dated 07/08/2022. FINDINGS: EKG electrodes are seen. Mild residual increased markings at the lung bases slightly more prominent on the left side. There has been improved aeration as compared to prior study. Persistent blunting of the left costophrenic angle. Normal size heart. Normal mediastinum and orquidea. Normal visualized pulmonary arteries. There is atherosclerotic calcification of the aortic arch with tortuosity. There are diffuse degenerative changes of the visualized thoracic spine. Vascular stents are seen in the left axillary region. There is no demonstrated abnormality of the visualized soft tissue structures of the upper abdomen. RAD/Chest 1 View (Portable) IMPRESSION: Persistent mild increased markings at the lung bases worse on the left side with blunting of the left costophrenic angle. There has been improved aeration as compared to prior study. Electronically Signed: Georges Hodgson MD at 8:39 EST ,
[2022-07-18 08:45] LABS: ALB/GLOB Ratio 0.7 RATIO (0.9-2.4); AST(SGOT) 30 U/L (15-37); Alanine Aminotransfer ALT/SGPT 21 U/L (16-61); Albumin, Serum 2.9 g/dL (3.2-5.0); Alkaline Phosphatase 83 U/L (45-117); Anion Gap 9 (5-15); BUN 38 mg/dL (7-18); BUN/Creat Ratio 4.9 RATIO (10-20); Calcium,Total 8.4 mg/dL (8.5-10.1); Chloride 94 mmol/L (98-107); EST Glomerular Filtration Rate 7 mL/min (>60); Est Glom Filt Rate - Afr Amer 9 mL/min (>60); Estimated Creatinine Clearance 7.55 ml/min; Globulin 4.3 g/dL (2.2-4.2); Glucose 154 mg/dL (74-106); Potassium 4.6 mmol/L (3.5-5.1); Prolactin 29.1 ng/mL; Protein, Total 7.2 g/dL (6.4-8.2); Sodium Level 132 mmol/L (136-145)
[2022-07-18 09:14] LABS: Lactic Acid 1.8 mmol/L (0.4-1.9)
[2022-07-18] MEDS: 0.9% Normal Saline 1,000 ML 999 ML IV (09:44)
--- NOTE | 2022-07-18 10:37 | CM.ED ---
SW Note Referral Source: Case Find Referral Reason: No Primary Care Physician (PCP) SW reviewed chart and noted that patient has no PCP. SW provided patient with list of [facility] and [facility] Physician List for reference. No other issues or concerns voiced at this time. SW remains available for any additional needs. Plan: Provided patient with PCP information Tamra QUIJANO
[2022-07-18 10:38] VITALS: BP 159/55; PULSE 62; RESP 18; O2SAT 94
--- NOTE | 2022-07-18 10:52 | ED.RN ---
Report given to Anitra at [facility]
== END 2022-07-18 11:35 | disposition skilled nursing facility (03) ==
PROVIDERS: Emergency Provider Emergency Medicine; Visit Provider Emergency Medicine
DX: N18.6 End stage renal disease (principal); I12.0 Hypertensive chronic kidney disease with stage 5 chronic kidney disease or end stage renal disease; R56.9 Unspecified convulsions; U07.1 COVID-19; R53.1 Weakness; E78.5 Hyperlipidemia, unspecified; R42 Dizziness and giddiness
CPT/HCPCS: 36415; 71045; 80053; 83605; 84146; 85025; 93005; 96360; 99285; J7030

== ENCOUNTER → 2022-07-19 | Outpatient (REF) | payer MEDICARE, BC, SELFPAY ==
[2022-07-19 07:12] LABS: Hematocrit 33.6 % (40-54); Hemoglobin 10.9 g/dL (13.0-16.5); Mean Corp Hgb Conc 32.4 g/dL (32-36); Mean Corpuscular Hgb 32.5 pg (27.0-32.0); Mean Corpuscular Volume 100.3 fL (80-94); Platelet Count 214 K/mm3 (150-450); RBC Distribution Width CV 13.9 % (11.6-14.6); RBC Distribution Width SD 51.1 fl (35.1-43.9); Red Blood Count 3.35 M/mm3 (4.6-6.2); White Blood Count 6.9 K/mm3 (4.4-11.0)
[2022-07-19 07:49] LABS: Anion Gap 9 (5-15); BUN 45 mg/dL (7-18); BUN/Creat Ratio 4.9 RATIO (10-20); Chloride 98 mmol/L (98-107); Creatinine, Serum 9.19 mg/dL (0.70-1.30); EST Glomerular Filtration Rate 6 mL/min (>60); Est Glom Filt Rate - Afr Amer 7 mL/min (>60); Glucose 77 mg/dL (74-106); Potassium 4.1 mmol/L (3.5-5.1); Sodium Level 137 mmol/L (136-145)
== END ==
LOC: OLS.SW 05:00
PROVIDERS: Visit Provider Internal Medicine
DX: I10 Essential (primary) hypertension (principal); Z79.899 Other long term (current) drug therapy
CPT/HCPCS: 36415; 80048; 85027; 86140

== ENCOUNTER → 2022-08-29 | Outpatient (REF) | payer MEDICARE, BC, SELFPAY ==
[2022-08-29 09:14] LABS: Absolute Lymphocyte Count 0.38 X10^3/uL (0.83-4.51); Absolute Neutrophil Count 23.9 X10^3/uL (2.0-7.7); Basophil# 0.05 X10^3/uL; Basophil% 0.2 % (0-1); Eosinophil# 0.02 X10^3/uL; Eosinophils% 0.1 % (0-5); Hematocrit 28.7 % (40-54); Lymphocyte # 0.38 X10^3/ul (0.83-4.51); Lymphocyte % 1.5 % (19-41); Mean Corp Hgb Conc 31.4 g/dL (32-36); Mean Corpuscular Hgb 32.5 pg (27.0-32.0); Mean Corpuscular Volume 103.6 fL (80-94); Mean Platelet Vol. 11.1 fl (6.2-12.0); Monocyte# 0.89 X10^3/uL; Monocyte% 3.4 % (0-10); NRBC Flagged by Analyzer 0 % (0-5); Neutrophil # 23.94 X10^3/uL (2.7-7.7); POSITIVE DIFFERENTIAL YES; Platelet Count 315 K/mm3 (150-450); RBC Distribution Width CV 16.2 % (11.6-14.6); RBC Distribution Width SD 60.6 fl (35.1-43.9); Red Blood Count 2.77 M/mm3 (4.6-6.2)
[2022-08-29 09:19] LABS: Differential Indicated SCAN CRITERIA MET
[2022-08-29 10:02] LABS: BUN 60 mg/dL (7-18); BUN/Creat Ratio 6.5 RATIO (10-20); Chloride 95 mmol/L (98-107); Creatinine, Serum 9.18 mg/dL (0.70-1.30); EST Glomerular Filtration Rate 6 mL/min (>60); Est Glom Filt Rate - Afr Amer 7 mL/min (>60); Glucose 139 mg/dL (74-106); Phosphorus 4.3 mg/dL (2.5-4.9); Potassium 4.1 mmol/L (3.5-5.1); Sodium Level 136 mmol/L (136-145)
[2022-08-29 10:18] LABS: Differential Comment SCANNED
== END ==
LOC: OLS.SW 05:00
PROVIDERS: Visit Provider Internal Medicine
DX: I12.9 Hypertensive chronic kidney disease with stage 1 through stage 4 chronic kidney disease, or unspecified chronic kidney disease (principal); N18.6 End stage renal disease; Z99.2 Dependence on renal dialysis
CPT/HCPCS: 36415; 80069; 85025

== ENCOUNTER 2022-08-30 13:34 | Inpatient (IN) | payer MEDICARE, BC, SELFPAY ==
[2022-08-30] VITALS (18 sets, daily range): BP systolic 77–112; BP diastolic 41–55; PULSE 72–94; RESP 12–27; TEMP 36.4–37.1; O2SAT 88–100; BMI 22.5; BMI 22.2
--- NOTE | 2022-08-30 13:39 | EKG12_ITS ---
Test Reason : Blood Pressure : / mmHG Vent. Rate : 091 BPM Atrial Rate : 000 BPM P-R Int : 000 ms QRS Dur : 138 ms QT Int : 454 ms P-R-T Axes : 000 045 252 degrees QTc Int : 558 ms Atrial fibrillation Non-specific intra-ventricular conduction block Minimal voltage criteria for LVH, may be normal variant ( Hartley product ) Cannot rule out Inferior infarct , age undetermined T wave abnormality, consider lateral ischemia Abnormal ECG Confirmed by JIMMY ESTRADA, AMRIT ([id number]), electronic news gathering editor BEA CLINTON ([id number]) on 09/04/2022 12:19:02 PM Referred By: Confirmed By:AMRIT MARQUEZ MD
--- NOTE | 2022-08-30 13:53 | EX.ED.DYSGE1 ---
HPI History of Present Illness Chief Complaint: Hypotension Detail of Chief Complaint: Hypotension status postdialysis and bolus 1 L Informant: patient and EMS Onset/Context/Timing Onset: Hours Context: Sudden Onset Timing: Continuous Quality: Hypotension Location: Postdialysis Current Severity: Mild Maximum Severity: Moderate Worsened by: Uncertain, amount of fluid taken off was not documented Relieved by: Nothing Associated Symptoms Associated Symptoms: Decreased level of consciousness Narrative Narrative: Patient is an 82-year-old male who is a poor informant. He does not know why he has renal failure. Review of prior records indicates his renal failure is due to hypertension. He states he does not make urine. He denies fever, chills night sweats. He denies headache, visual, ocular auditory symptoms. He denies change in voice. Denies sore throat. He denies chest discomfort. He does report mild shortness of breath. He denies orthopnea or PND. He denies abdominal pain or back pain. He denies black or maroon-colored stool. He denies pain of his extremities. Prior similar symptoms: No Recent Illness/Hospitalization: No PFSH PFS Medical History Anemia in chronic kidney disease Chronic kidney disease COVID-19 COVID-19 Dementia ESRD (end stage renal disease) on dialysis General weakness Hyperlipidemia Hypertension Kidney failure Home Medications amiodarone 200 mg tablet 200 mg PO DAILY HEART 03/10/22 [History Last Taken 08/30/22] losartan 25 mg tablet 25 mg PO DAILY BP 03/10/22 [History Last Taken 08/30/22] donepezil 10 mg tablet 10 mg PO QHS 07/08/22 [History Last Taken 08/29/22] aspirin 81 mg tablet,delayed release 81 mg PO DAILY 08/30/22 [History Last Taken 08/30/22] ceftriaxone 1 gram solution for injection 1 g IM QHS 08/30/22 [History Last Taken 08/29/22] doxycycline monohydrate 100 mg capsule 100 mg PO BID 08/30/22 [History Last Taken Unknown] levothyroxine 50 mcg tablet 50 mcg PO DAILY THYROID 08/30/22 [History Last Taken 08/30/22] loratadine 10 mg tablet (Claritin) 10 mg PO DAILY ALLERGIES 08/30/22 [History Last Taken 08/30/22] sertraline 50 mg tablet (Zoloft) 50 mg PO DAILY 08/30/22 [History Last Taken 08/29/22] tramadol 50 mg tablet 50 mg PO Q8H PRN Pain 08/30/22 [History Last Taken 08/30/22] Allergy/AdvReac Type Severity Reaction Status Date / Time HEART MED Allergy PT UNSURE Uncoded 07/18/22 07:51 OF REACTION Family History Other Heart disease Hypertension Surgical History History of colon resection Social History (Updated 08/30/22 @ 13:[address] Damon Burnette MD) household members: none housing: longterm Smoking Status: Never smoker substance use type: does not use ROS ROS ED Review of Systems ROS Unobtainable: due to mental status Constitutional Constitutional ED: Denies chills, fever(s) or subjective Eyes Eyes: Denies blurry vision, change in vision or diplopia ENT ENT ED: Denies ear pain, rhinorrhea or sore throat Cardiovascular Cardiovascular: Denies chest pain, palpitations or racing heartbeat Respiratory/Chest Respiratory/Chest: Reports dyspnea Gastrointestinal Gastrointestinal: Reports nausea; Denies abdominal pain, diarrhea, melena or vomiting Genitourinary Genitourinary ED: Reports other Details: Patient does not make urine. Musculoskeletal Musculoskeletal: Denies arthralgias, back pain or neck pain Integumentary Denies rash Neurologic Neurologic: Reports weakness; Denies paresthesias Hematologic/Lymphatic Hematologic/Lymphatic: Reports anemia EXAM Physical Exam Const Vital Signs: 08/30/22 13:35 08/30/22 13:44 08/30/22 14:38 Temperature 97.5 F L 97.7 F L Temperature Source Oral Oral Pulse Rate 90 84 Respiratory Rate 16 17 Respiratory Pattern Normal Blood Pressure 94/50 L 89/47 L Blood Pressure Mean 64 61 Pulse Ox 94 95 Oxygen Delivery Method Room Air Room Air Oxygen Flow Rate (L/min) 08/30/22 15:03 08/30/22 15:21 08/30/22 15:57 Temperature 97.5 F L 98 F Temperature Source Oral Temporal Pulse Rate 82 94 83 Respiratory Rate 15 12 21 H Respiratory Pattern Blood Pressure 78/44 L 77/43 L 104/54 L Blood Pressure Mean 55 54 70 Pulse Ox 95 99 88 Oxygen Delivery Method Room Air Room Air Oxygen Flow Rate (L/min) 08/30/22 15:59 Temperature Temperature Source Pulse Rate Respiratory Rate Respiratory Pattern Blood Pressure Blood Pressure Mean Pulse Ox 94 Oxygen Delivery Method Nasal Cannula Oxygen Flow Rate (L/min) 2 Positive well nourished and well developed Constitutional Narrative: Patient is not alert. He awakes to verbal stimuli. He answers questions slowly. He does answer questions appropriately and is oriented. Patient's blood pressure did improve after 1 L of normal saline. General Appearance ED: well developed, NAD and pallor; Negative for cyanotic or diaphoretic HEENT Reports dry mucous membranes HEENT Narrative: Head is atraumatic normocephalic. Ears normal. Nares patent. Mucosa is dry. Uvula is midline. There is no deviation tongue or protrusion. Mouth ED: Yes dry mucous membranes Mouth: dry mucous membranes Eyes PERRL and EOMs intact bilaterally Eyes Narrative: There is no inflammation of the duct of. General Eye ED: Yes pale conjunctiva; Negative for scleral icterus Neck no lymphadenopathy, supple and no JVD Neck Narrative: Trachea is midline. There is no carotid bruits. Chest Wall inspection of chest normal and palpation of chest normal Resp normal respiratory effort and No clear to auscultation bilaterally Auscultation: rales left lower Cardio regular rate, regular rhythm, S1 normal heart sound, S2 normal heart sound and no murmurs GI normal to inspection, nondistended, normoactive bowel sounds, non-tender, non-distended and no masses; Negative for hepatosplenomegaly Palpation: soft Back/Spine no CVA tenderness Cervical Spine: Negative for cervical spine tenderness Thoracic Spine / Upper Back: Negative for thoracic spinal tenderness Extremity Extremity Narrative: Patient has stigmata of peripheral arterial disease. He has lack of hair on his legs and toes. DP and PT pulse are nonpalpable. Cap refill is normal. Neuro oriented x3, CN's II-XII intact bilaterally and no sensory deficits noted Sensorium / Orientation: Negative for alert Psych Psych Narrative: Affect is flat. Skin no wounds and No skin turgor normal General Skin Exam: pallor; Negative for elasticity normal or jaundice Sepsis Attestation Sepsis Alert: Yes Sepsis Attestation: Agree w/Sepsis Date exam was performed: 08/30/22 Time exam was performed: 13:50 Possible Source of Sepsis: Unknown Sepsis Organ Dysfunction Criteria Present: SBP < 90 mmHg or MAP < 65 mmHg, Creatinine > 2.0 mg/dL and Lactic Acid > 2 mmol/L Fluid Resuscitation Fluid resuscitation indicated?: Yes Fluid Resuscitation ordered: Lesser volume fluid bolus ordered Reason for lesser fluid bolus:: Concern for fluid overload, Renal Failure and BP Responded to a lesser volume Sepsis Note Date exam was performed: 08/30/22 Time exam was performed: 15:27 Sepsis Attestation: Sepsis re-evaluation was performed (Patient initially responded to lesser fluids. He is hypotensive at again. Additional 500 cc of normal saline was ordered. If patient remains hypotensive will place central line and started on pressors.) MDM MDM MDM Narrative Medical decision making narrative: Patient presents with hypotension. Differential is expansive. This may be due to hypovolemia from dialysis, infection, cardiac dysfunction. EKG was obtained to assess for acute cardiac ischemia. Chest x-ray because of rales left lower lobe and may represent pneumonia versus fluid overload. CBC was obtained to assess H&H and compare to prior as well as white count. Basic metabolic panel was obtained to assess electrolytes and more importantly CO2 and anion gap. We will compare to prior. There is no obvious source at this time. Since patient is on hemodialysis will give 50 mg/kg of vancomycin to cover for possible infection due to hemodialysis. We will also administer dose of Zosyn since he has no allergy to penicillin. Patient's med list includes doxycycline. He was started on doxycycline for apparent pneumonia. He was started on the antibiotic yesterday. He also received a dose of Rocephin. Chest x-ray does not show evidence of pneumonia. With persistent hypotension, lactate of 6.2 per CMS guidelines patient has septic shock. He initially was responsive to fluids. He is receiving an additional bolus. He initially responded to the liter he was given and the additional 500 cc he was subsequently given. Additional 500 cc was ordered. If he remains hypotensive after this bolus patient will require placement of central line and pressors since he received a total of 30 cc/kg. Patient's blood pressure as of 1547 is 104 systolic with a mean arterial pressure of 68. Patient has now received a total of 30 cc/kg. He received 1 L prior to arrival and an additional liter in the emergency department. We will have hospitalist paged for admission. With the hospitalist will follow the second troponin. Lab Data Attestation: I reviewed the patient's lab results. Lab results narrative: White count is elevated with shift. Lactate elevated 6.2. Suspect this is due to poor perfusion when patient was hypotensive. Patient's pressure did improve after 1 L of normal saline. 2-hour troponin is pending. Suspect his troponin is elevated due to renal failure. We will need to compare to prior and await 2-hour troponin. Labs: Laboratory Results - last 24 hr 08/30/22 08/30/22 08/30/22 13:44 13:44 13:44 WBC 15.2 H RBC 2.83 L Hgb 9.5 L Hct 28.7 L MCV 101.4 H MCH 33.6 H MCHC 33.1 D RDW Std Deviation 61.4 H RDW Coeff of Mauro 16.6 H Plt Count 226 MPV 11.3 Immature Gran % (Auto) 4.000 H Neut % (Auto) 81.7 H Lymph % (Auto) 4.3 L [place] % (Auto) 9.4 Eos % (Auto) 0.3 Baso % (Auto) 0.3 Absolute Neuts (auto) 12.4 H Absolute Lymphs (auto) 0.66 L Nucleated RBC % 0 Sodium 139 Potassium 3.4 L Chloride 98 Carbon Dioxide 28.0 Anion Gap 13 BUN 44 H Creatinine 6.30 H Estim Creat Clear Calc 9.15 Est GFR (MDRD) Af Amer 11 L Est GFR (MDRD) Non-Af 9 L BUN/Creatinine Ratio 7.0 L Glucose 155 H Lactic Acid 6.2 H* Calcium 9.2 Troponin I High Sens 191 H* Radiography Chest X-Ray - ED: 1 View and Read by ED Physician (There is increased bibasilar markings. This may be due to poor inspiration, scarring or atelectasis. Cardiac silhouette is normal. Perihilar regions normal. There is no evidence of cephalization. There is slight blunting the left costophrenic angle which may represent an effusion since he has h) Diagnostic Testing: Clinical Impression(s) from Imaging Studies Chest X-Ray 08/30/22 14:20 IMPRESSION: Mild increased linear markings at the lung bases slightly worse on the left side with blunting of the left cardiac phrenic angle. This suggests probably atelectasis and possible scarring Electronically Signed: Georges Hodgson MD at 14:43 EST , EKG Initial EKG: Attestation: I personally reviewed and interpreted this EKG as follows: Interpretation: Atrial Fibrillation (Rate is 91. QRS duration is prolonged at 138 and reveals a nonspecific intraventricular conduction delay. QT interval is normal. [place] is normal. He does have voltage criteria for LVH. There are no ossific changes in the lateral leads. Slightly more prominent than prior.) Prior: Unchanged (Prior EKG was dated July 18, 2022.) Critical Care Time Critical Care Time: Yes Critical care time (excluding procedures): 30-74 minutes, Including time spent: (History, physical, documentation, review of prior records, discussion with paramedics, and her potation laboratory results initiation of therapy), Discussing w/Patient &/or Family/Shoe Designer, Discussing w/Consultants and Arranging Admission or Transfer Discharge Plan Dx/Rx/DC Orders Clinical Impression: Acute hypotension, Acidosis, lactic, ESRD on hemodialysis, Neutrophilic leukocytosis, History of renal hypertension, Elevated troponin I level Disposition Disposition: Acute Care Hospital [facility]
--- NOTE | 2022-08-30 13:58 | ED.RN ---
THIS RN SPOKE WITH STEP-DAUGHTER SINCE PHONE ATTEMPT TO WENT TO [employer] AND PT REQUESTED FAMILY BE CONTACTED. SHE VERBALIZES UNDERSTANDING WITH PLAN OF CARE. HER AND THE PATIENT ARE OK WITH HER BEING PRIMARY CONTACT SINCE HAS DEMENTIA AND SHE WILL RELAY INFORMATION.
[2022-08-30 14:09] LABS: Absolute Lymphocyte Count 0.66 X10^3/uL (0.83-4.51); Absolute Neutrophil Count 12.4 X10^3/uL (2.0-7.7); Basophil# 0.04 X10^3/uL; Basophil% 0.3 % (0-1); Eosinophil# 0.05 X10^3/uL; Eosinophils% 0.3 % (0-5); Hematocrit 28.7 % (40-54); Hemoglobin 9.5 g/dL (13.0-16.5); Lymphocyte # 0.66 X10^3/ul (0.83-4.51); Lymphocyte % 4.3 % (19-41); Mean Corp Hgb Conc 33.1 g/dL (32-36); Mean Corpuscular Hgb 33.6 pg (27.0-32.0); Mean Corpuscular Volume 101.4 fL (80-94); Mean Platelet Vol. 11.3 fl (6.2-12.0); Monocyte# 1.43 X10^3/uL; Monocyte% 9.4 % (0-10); NRBC Flagged by Analyzer 0 % (0-5); Neutrophil # 12.44 X10^3/uL (2.7-7.7); Neutrophil % 81.7 % (47-70); Platelet Count 226 K/mm3 (150-450); RBC Distribution Width CV 16.6 % (11.6-14.6); RBC Distribution Width SD 61.4 fl (35.1-43.9); Red Blood Count 2.83 M/mm3 (4.6-6.2); White Blood Count 15.2 K/mm3 (4.4-11.0)
--- NOTE | 2022-08-30 14:20 | RAD_ITS ---
STUDY: X-RAY CHEST REASON FOR EXAM: Male, 82 years old. Rales left lower lobe. Syncopal episode. TECHNIQUE: Single AP portable view of the chest. COMPARISON: Comparison is made with prior study dated 07/18/2022. FINDINGS: EKG electrodes are seen. Vascular stents are seen in the left axillary region as well as proximal medial left arm. Mild degree of increased linear markings at the lung bases slightly more prominent on the left side suggestive of a bibasilar atelectasis and/or scarring. Persistent blunting of the left costophrenic angle. Normal size heart. Normal mediastinum and orquidea. Normal visualized pulmonary arteries. There is atherosclerotic calcification of the aortic arch with tortuosity. There are diffuse degenerative changes of the visualized thoracic spine. Normal visualized ribs, clavicles, and shoulders. There is no demonstrated abnormality of the visualized soft tissue structures of the upper abdomen. RAD/Chest 1 View (Portable) IMPRESSION: Mild increased linear markings at the lung bases slightly worse on the left side with blunting of the left cardiac phrenic angle. This suggests probably atelectasis and possible scarring Electronically Signed: Georges Hodgson MD at 14:43 EST ,
[2022-08-30 14:28] LABS: Lactic Acid 6.2 mmol/L (0.4-1.9)
[2022-08-30 14:38] LABS: Anion Gap 13 (5-15); BUN 44 mg/dL (7-18); Calcium,Total 9.2 mg/dL (8.5-10.1); Chloride 98 mmol/L (98-107); EST Glomerular Filtration Rate 9 mL/min (>60); Est Glom Filt Rate - Afr Amer 11 mL/min (>60); Estimated Creatinine Clearance 9.15 ml/min; Glucose 155 mg/dL (74-106); Potassium 3.4 mmol/L (3.5-5.1); Sodium Level 139 mmol/L (136-145); Troponin-I HS 191 pg/mL (3.0-78.0)
--- NOTE | 2022-08-30 14:49 | CM.ED ---
Social Work Consult: No primary care physician (PCP). Referral source: Self referral due to above. This social services manager met with patient in room. Introduced self and social services manager role. Patient agreeable to speak with this social services manager. This social services manager broached conversation of PCP. Patient confirms to not have a PCP when patient is living in the community. Patient is currently staying at [facility] ([facility] under skilled services and plans to return to the community when able. Patient reports to have transportation and food along with housing in the community. Patient open to this social services manager providing patient with list of in-network PCP's that are local to patient geographical region. Patient denies any questions/concerns. Social Work to continue to follow as needed, patient pending admission to acute care setting. Rishi WALSH, RUPERT
--- NOTE | 2022-08-30 15:30 | ED.RN ---
UNABLE TO GIVE FULL FLUID RESUSCITATION DUE TO DIALYSIS PATIENT AND CONCERN FOR FLUID OVERLOAD. DR. GORDON AWARE.
[2022-08-30] MEDS: Vancomycin IV 1,000 MG/200 ML BAG 200 MG IV (16:13)
--- NOTE | 2022-08-30 16:22 | NURSING ---
lab calls to let us know we need to reorder delta troponin
--- NOTE | 2022-08-30 16:22 | NURSING ---
ICU WHITE HYPOTENSION, LACTIC ACIDOSIS, LEUKOCYTOSIS, ESRD HEMODIALYSIS
--- NOTE | 2022-08-30 17:05 | NURSING ---
ICU 7
[2022-08-30 17:14] LABS: Troponin-I HS 161 pg/mL (3.0-78.0)
[2022-08-30 17:52] LABS: Reflex Lactate? Y
--- NOTE | 2022-08-30 17:59 | HP.PCM.HOS_ITS ---
HPI - General General Date of Admission: 08/30/22 Date of Service: 08/30/22 Chief Complaint: Dyspnea, hypotension, syncope. HPI Narrative The patient is an 82 y/o M w/ PMHx: ESRD on HD following w/ Dr. Holliday in [place], Chronic anemia/AOCD, Dementia unclear type with unclear behavioral disturbance history, HTN, HLD, Suspected PAF (on amidarone chronically) who presents to the [facility] ED on 08/30/22 from HD with history of syncopal event upon standing following his HD completion with hypotension noted upon his evaluation with 1L NS administered and patient transitioned to the ED for evaluation. Patient reportedly missed dialysis the day prior and was receiving dialysis on day of presentation when these events occurred. He does report recent dyspnea but no recent fever, chills, URI type symptoms or marked cough. Patient was started on Rocephin and transitioned to doxycycline for PNA the day prior. When discussing patient's syncopal event he reports he did not completely pass out but this is not consistent with what dialysis staff reported and patient does have underlying dementia and is a poor historian. He denies any current l ightheadedness or dizziness or with the event. Work-up in the ED included initial vital sign assessment 97.5, heart rate 90, BP 90/50, respiratory rate 16, 94% on room air however patient's blood pressure did decrease to 77/43 with evidence of desaturation to 87 to 88% on room air eventually transition to 2 L nasal cannula noted be 94%, CBC with WC 15.2, hemoglobin 9.5, platelet 226 with significant left shift and lymphopenia, BMP with potassium 3.4, BUN/creatinine 44/6.30, glucose 155, lactic acid 6.2, initial troponin 191 with repeat delta pending, chest x-ray with mild increased linear markings at lung bases slightly worse on left side with blunting of the left cardiac phrenic angle suggestive of atelectasis and possibly scarring, blood culture x2 pending per ED, EKG with atrial fibrillation with no acute evidence of acute ischemia. In the ED patient ministered normal saline 30 cc/kg bolus regimen, IV Zosyn as well as vancomycin IV therapy. [facility] Medical History Anemia in chronic kidney disease COVID-19 Dementia ESRD (end stage renal disease) on dialysis Hyperlipidemia Hypertension PAF (paroxysmal atrial fibrillation) Home Medications amiodarone 200 mg tablet 200 mg PO DAILY HEART 03/10/22 [History Last Taken 08/30/22] losartan 25 mg tablet 25 mg PO DAILY BP 03/10/22 [History Last Taken 08/30/22] donepezil 10 mg tablet 10 mg PO QHS 07/08/22 [History Last Taken 08/29/22] aspirin 81 mg tablet,delayed release 81 mg PO DAILY 08/30/22 [History Last Taken 08/30/22] ceftriaxone 1 gram solution for injection 1 g IM QHS 08/30/22 [History Last Taken 08/29/22] doxycycline monohydrate 100 mg capsule 100 mg PO BID 08/30/22 [History Last Taken Unknown] levothyroxine 50 mcg tablet 50 mcg PO DAILY THYROID 08/30/22 [History Last Taken 08/30/22] loratadine 10 mg tablet (Claritin) 10 mg PO DAILY ALLERGIES 08/30/22 [History Last Taken 08/30/22] sertraline 50 mg tablet (Zoloft) 50 mg PO DAILY 08/30/22 [History Last Taken 08/29/22] tramadol 50 mg tablet 50 mg PO Q8H PRN Pain 08/30/22 [History Last Taken 08/30/22] Allergy/AdvReac Type Severity Reaction Status Date / Time HEART MED Allergy PT UNSURE Uncoded 07/18/22 07:51 OF REACTION Family History (Updated 08/30/22 @ 16:[address] Deloris Toscano MD) Mother Heart disease Hypertension Father Heart disease Hypertension Surgical History History of colon resection S/P arteriovenous (AV) fistula creation Social History (Updated 08/30/22 @ 13:[address] Damon Burnette MD) household members: none housing: correction Smoking Status: Never smoker substance use type: does not use ROS ROS Narrative Admission Review of Systems: CONSTITUTIONAL: No weight loss, fever, chills, + weakness or fatigue. HEENT: Eyes: No visual loss, blurred vision, double vision or yellow sclerae. Ears, Nose, Throat: No hearing loss, sneezing, congestion, runny nose or sore throat. SKIN: No rash or itching, lesions, wounds. CARDIOVASCULAR: No chest pain, chest pressure or chest discomfort, palpitations, edema, orthopnea, syncopal events. RESPIRATORY: + Mild shortness of breath, mild cough without sputum, No wheezing, hemoptysis. GASTROINTESTINAL: + anorexia, No nausea, vomiting or diarrhea, abdominal pain, melena, BRBPR. GENITOURINARY: + Reports not making urine. No dysuria, frequency, urgency or retention. NEUROLOGICAL: No headache, dizziness, syncope, paralysis, ataxia, numbness or tingling in the extremities, focal weakness, change in bowel or bladder control, seizure. MUSCULOSKELETAL: + muscle, back pain, joint pain or stiffness. HEMATOLOGIC: + anemia, bleeding or bruising. LYMPHATICS: No enlarged nodes. No history of splenectomy. PSYCHIATRIC: + history of depression or anxiety. ENDOCRINOLOGIC: No reports of sweating, cold or heat intolerance. No polyuria or polydipsia. ALLERGIES: No history of asthma, hives, eczema or rhinitis. Vital Signs Vital Signs Vital Signs: 08/30/22 13:35 08/30/22 13:44 08/30/22 14:38 Temperature 97.5 F L 97.7 F L Temperature Source Oral Oral Pulse Rate 90 84 Respiratory Rate 16 17 Respiratory Pattern Normal Blood Pressure 94/50 L 89/47 L Blood Pressure Mean 64 61 Pulse Ox 94 95 Oxygen Delivery Method Room Air Room Air Oxygen Flow Rate (L/min) 08/30/22 15:03 08/30/22 15:21 08/30/22 15:57 Temperature 97.5 F L 98 F Temperature Source Oral Temporal Pulse Rate 82 94 83 Respiratory Rate 15 12 21 H Respiratory Pattern Blood Pressure 78/44 L 77/43 L 104/54 L Blood Pressure Mean 55 54 70 Pulse Ox 95 99 88 Oxygen Delivery Method Room Air Room Air Oxygen Flow Rate (L/min) 08/30/22 15:59 Temperature Temperature Source Pulse Rate Respiratory Rate Respiratory Pattern Blood Pressure Blood Pressure Mean Pulse Ox 94 Oxygen Delivery Method Nasal Cannula Oxygen Flow Rate (L/min) 2 Weight Weight: 152 lb 8.958 oz Body Mass Index (BMI) 22.5 Physical Exam Narrative Physical Examination: General: Awake, alert, oriented to self and some historical things but has underlying dementia and suspect this is his baseline, remains cooperative, seated upright in the ED bed, fatigued, mildly ill-appearing. Skin: Normal color, normal turgor, no icterus, no cyanosis except for significant very staged ecchymoses to the extremities primarily. HEENT: AT/NC, EOMI, PERRLA, dry MM, no carotid bruits or JVD noted. Lungs: Diminished, greater bases, mild rales left base, increased respiratory rate but no distress, no ronchi or wheezing. Heart: R irregular, rate controlled; no gallop, rub audible. Abdomen: Soft, NTTP, ND, distant normal BS, no HSM. Extremities: No cyanosis, clubbing, or edema, + LUE AVF thrill. Neurological: Patient awake, alert, oriented as noted, cognitive function suspect is baseline for him with underlying notable dementia; pupils equally reactive to light and accommodation, cranial nerves grossly normal, moving all 4 extremities, no focal deficits, strength severely global decrease secondary to acute presentation and underlying comorbidities. Psychiatric: Affect appears flat, fatigued, no acute evidence of depressive or anxiety feelings. Results Lab / Micro Data Result Diagrams: 08/30/22 13:44 08/30/22 13:44 Labs: Laboratory Results - last 24 hr 08/30/22 13:44: WBC 15.2 H, RBC 2.83 L, Hgb 9.5 L, Hct 28.7 L, MCV 101.4 H, MCH 33.6 H, MCHC 33.1 D, RDW Std Deviation 61.4 H, RDW Coeff of Mauro 16.6 H, Plt Count 226, MPV 11.3, Immature Gran % (Auto) 4.000 H, Neut % (Auto) 81.7 H, Lymph % (Auto) 4.3 L, Cooke % (Auto) 9.4, Eos % (Auto) 0.3, Baso % (Auto) 0.3, Absolute Neuts (auto) 12.4 H, Absolute Lymphs (auto) 0.66 L, Nucleated RBC % 0 08/30/22 13:44: Sodium 139, Potassium 3.4 L, Chloride 98, Carbon Dioxide 28.0, Anion Gap 13, BUN 44 H, Creatinine 6.30 H, Estim Creat Clear Calc 9.15, Est GFR (MDRD) Af Amer 11 L, Est GFR (MDRD) Non-Af 9 L, BUN/Creatinine Ratio 7.0 L, Glucose 155 H, Calcium 9.2, Troponin I High Sens 191 H* 08/30/22 13:44: Lactic Acid 6.2 H* Radiology Impression Chest X-Ray 08/30/22 14:20 IMPRESSION: Mild increased linear markings at the lung bases slightly worse on the left side with blunting of the left cardiac phrenic angle. This suggests probably atelectasis and possible scarring Electronically Signed: Georges Hodgson MD at 14:43 EST , Assessment & Plan Assessment/Plan (1) Acute hypotension: (2) Acidosis, lactic: PLAN: Plan The patient is an 82 y/o M w/ PMHx: ESRD on HD following w/ Dr. Holliday in [place], Chronic anemia/AOCD, Dementia unclear type with unclear behavioral disturbance history, HTN, HLD, Suspected PAF (on amidarone chronically) who presents to the [facility] ED on 08/30/22 from HD with history of syncopal event upon standing following his HD completion with hypotension noted upon his evaluation with 1L NS administered and patient transitioned to the ED for evaluation. #1. Acute Hypoxia secondary to Possible Pneumonia, possibly GN/GP Organisms with Acute lactic acidosis: X-ray not marked appearing however patient did r ecently initiate antibiotic therapy outpatient for possible pneumonia concerns, no other obvious source for patient's acute presentation with significant lactic acidosis. Will admit to the ICU given severe lactic acidosis, likely hypoxemia, possibly infectious and volume status related, will maintain on oxygen with wean as tolerated to room air, PRN albuterol, maintained on IV Zosyn and Vancomycin w/ pending MRSA screen with de-escalation of antibiotic therapies as able, ICU physician consultation requested, HOB, IS parameters w/ pending sputum cultures, full respiratory panel, COVID PCR, procalcitonin requested. Given patient does not make urine will defer request for urine antigens. Bld cx x 2 obtained in the ED. #2. Acute NSTEMI suspected type II secondary to #1: EKG with atrial fib rillation with no acute evidence of acute ischemia. Trop elevated, 191 with repeat delta pending upon evaluation. Will maintain on a monitored bed, continue serial cardiac enzymes and EKGs. Obtain magnesium level upon admission. Start Heparin drip. Continue medical management. ECHO requested. If enzymes rise notably low threshold to involve Cardiology. ASA. #3. Syncopal Event suspected secondary to orthostatic hypotension as well as acute presentation as noted #1, #2: Suspect primarily secondary to orthostasis with hypotension following HD, EKG in ED w/ atrial fibrillation without evidence of acute ischemia, initial trop as noted above 191 with delta pending associated with #1. Will place on a monitored bed, obtain serial cardiac enzymes and EKGs as needed. Will maintain on fall precautions, continue judicious hydration and will obtain admission orthostatic and AM orthostatic VS, obtain ECHO, holding hypertensive regimen. PT/OT consultation to ascertain stability and discharge needs. #4. Suspect Hypothyroidism, Recently noted abnormal TSH: Noted 08/22/2022 TSH 6.24, will repeat to be certain and request free T4 at that time as well. From records recently started on levothyroxine. #5. Chronic anemia/AOCD: Admission hemoglobin 9.5, baseline hemoglobin appears primarily 9-10 but seems to vacillate and has been in the 8 range before most recently 08/22/2022 8.6, will continue to trend. #6. ESRD: Patient with underlying renal disease on HD [facility] following with Dr. Holliday in [place], during prior visit was evaluated by Dr. Breaux who will be consulted. #7. Suspected PAF: We will continue patient home amiodarone, not on any rate control agents otherwise and not anticoagulated possibly secondary to fall history. #8. Dementia, unclear type with unclear behavioral disturbance history: Complicates presentation, maintain on fall and aspiration precautions, therapies and case management consulted as noted, continue patient home donepezil regimen. #9. Hypertension: Given presentation with hypotension, orthostasis with syncopal event we will hold patient's regimen, readd once appropriate slowly with adjustments as needed. #10. Hyperlipidemia: Continue home statin regimen. #11. DVT prophylaxis: SCDs, heparin drip until assure enzymes not increasing. #12. CODE STATUS: Full code per facility paperwork. Admission Evaluation Time spent evaluating chart, patient history, patient evaluation, care planning and discussion with specialists: 75 minutes. Charges/Coding Visit Charges Inpatient E&M: 65703 Init Hosp L3
--- NOTE | 2022-08-30 18:09 | ECHOD_ITS ---
Reason For Study: NSTEMI Procedure This was a 2D Doppler, Color Flow transthoracic echocardiogram. The study was technically difficult. Patientwas uncooperative and scanned in RLD position. Exam performed portable in ICU/CCU. Left Ventricle Normal LV size. Moderate concentric left ventricular hypertrophy. Left ventricular systolic function is hyperdynamic. The left ventricular ejection fraction is 70 %. Right Ventricle Normal right ventricle. Atria The left and right atria are normal. Mitral Valve Trivial mitral valve insufficiency. Tricuspid Valve Trivial tricuspid valve insufficiency. Right ventricular systolic pressure estimated to be 36 mmHg. Aortic Valve Aortic sclerosis, no stenosis. Moderate (2+) aortic valve insufficiency. Pulmonic Valve The pulmonic valve is not well visualized. Great Vessels Normal sized aortic root. Pericardium/Pleural No pericardial effusion. MMode/2D Measurements & Calculations LVIDd: 4.7 cm IVSd: 0.82 cm LVOT diam: 2.0 cm LVIDs: 2.6 cm LVPWd: 1.1 cm LVOT area: 3.2 cm2 RVDd: 3.0 cm FS: 44.4 % Ao root diam: 3.0 cm LAV(MOD-sp4): 60.7 ml LA A4 area: 21.0 cm2 LA dimension(2D): 3.9 cm RA A4 area: 13.4 cm2 Time Measurements MV dec time: 0.20 sec Doppler Measurements & Calculations MV E max adalberto: 101.2 cm/sec Lat Peak E' Adalberto: 12.8 cm/sec Med Peak E' Adalberto: 12.0 cm/sec MV A max adalberto: 43.0 cm/sec E/E' lat: 7.9 E/E' med: 8.4 MV E/A: 2.4 MV V2 max: 129.9 cm/sec MV dec slope: 527.6 cm/sec2 Ao V2 max: 278.6 cm/sec MV max P.8 mmHg Ao max P.1 mmHg MV V2 mean: 72.8 cm/sec Ao V2 mean: 202.9 cm/sec MV mean P.6 mmHg Ao mean P.6 mmHg MV V2 VTI: 35.0 cm Ao V2 VTI: 56.6 cm MVA(VTI): 2.3 cm2 AV (velocity ratio): 0.43 LISA(I,D): 1.4 cm2 LISA(V,D): 1.4 cm2 AI max adalberto: 414.5 cm/sec LV V1 max: 120.0 cm/sec SV(LVOT): 78.9 ml AI max P.7 mmHg LV V1 max P.8 mmHg LV V1 mean P.5 mmHg AI dec slope: 272.7 cm/sec2 LV V1 mean: 69.6 cm/sec AI P1/2t: 445.2 msec LV V1 VTI: 24.3 cm PA V2 max: 121.6 cm/sec TR max adalberto: 278.0 cm/sec PA V2 mean: 77.7 cm/sec TR max P.9 mmHg ECHO/Echo Complete Interpretation Summary Moderate concentric left ventricular hypertrophy. The left ventricular ejection fraction is 70 %. Right ventricular systolic pressure estimated to be 36 mmHg. Moderate (2+) aortic valve insufficiency. Aortic sclerosis, no stenosis. The study was technically difficult. Ordering Physician: Deloris Toscano Referring Physician: CAMPBELL PCP Performed By: Rayna Lama RCS
[2022-08-30 19:02] LABS: Lactic Acid 1.1 mmol/L (0.4-1.9)
[2022-08-30] MEDS: 0.9% Normal Saline 1,000 ML 100 ML IV (19:02)
[2022-08-30 20:22] LABS: M R Staph aureus DNA By PCR Negative (Negative); Probe Check PASS; Specimen Processing Control PASS
[2022-08-30] MEDS: Potassium Chloride Oral Soln 20 MEQ/15 ML UDC 40 MEQ PO (20:48)
[2022-08-30] MEDS: Donepezil HCl 10 MG Tablet PO (20:49)
[2022-08-30] MEDS: guaiFENesin 600 MG Tablet PO (20:49)
[2022-08-30 20:52] LABS: Magnesium 1.7 mg/dL (1.6-2.6); Phosphorus 3.6 mg/dL (2.5-4.9)
[2022-08-30 22:02] LABS: Partial Thromboplast Time 34.5 Seconds (24.1-36.2); Prothrombin Time (Protime)PT. 12.9 SECONDS (11.7-14.9)
[2022-08-30 22:15] LABS: Troponin-I HS 169 pg/mL (3.0-78.0)
[2022-08-30] MEDS: HEPARIN/D5w 25,000 UNITS 25,000 UNITS/250 ML IV.SOLN. 10 UNITS CONT INF (22:32)
[2022-08-30] MEDS: Heparin Injection (Vial) 5,000 UNIT/ML VIAL 4500 UNIT IV (22:33)
[2022-08-31] VITALS (13 sets, daily range): BP systolic 84–144; BP diastolic 39–57; PULSE 66–81; RESP 13–20; TEMP 36.6–36.9; O2SAT 93–100
[2022-08-31] MEDS: 0.9% Normal Saline 1,000 ML 100 ML IV ×2 (04:36→14:48)
[2022-08-31] MEDS: Levothyroxine 50 MCG Tablet PO (04:36)
[2022-08-31 04:57] LABS: Absolute Lymphocyte Count 0.84 X10^3/uL (0.83-4.51); Absolute Neutrophil Count 13.1 X10^3/uL (2.0-7.7); Basophil# 0.04 X10^3/uL; Basophil% 0.2 % (0-1); Eosinophil# 0.22 X10^3/uL; Eosinophils% 1.3 % (0-5); Hematocrit 27.3 % (40-54); Hemoglobin 8.7 g/dL (13.0-16.5); Lymphocyte # 0.84 X10^3/ul (0.83-4.51); Mean Corp Hgb Conc 31.9 g/dL (32-36); Mean Corpuscular Hgb 32.6 pg (27.0-32.0); Mean Corpuscular Volume 102.2 fL (80-94); Mean Platelet Vol. 11.3 fl (6.2-12.0); Monocyte% 11.8 % (0-10); NRBC Flagged by Analyzer 0 % (0-5); Neutrophil # 13.07 X10^3/uL (2.7-7.7); Neutrophil % 77.3 % (47-70); POSITIVE DIFFERENTIAL YES; Platelet Count 209 K/mm3 (150-450); RBC Distribution Width CV 16.6 % (11.6-14.6); RBC Distribution Width SD 62.4 fl (35.1-43.9); Red Blood Count 2.67 M/mm3 (4.6-6.2); White Blood Count 16.9 K/mm3 (4.4-11.0)
[2022-08-31 05:10] LABS: Partial Thromboplast Time 151.4 Seconds (24.1-36.2)
[2022-08-31 05:12] LABS: Differential Indicated SCAN CRITERIA MET
[2022-08-31 05:20] LABS: ALB/GLOB Ratio 0.5 RATIO (0.9-2.4); AST(SGOT) 22 U/L (15-37); Alanine Aminotransfer ALT/SGPT 13 U/L (16-61); Albumin, Serum 1.7 g/dL (3.2-5.0); Alkaline Phosphatase 95 U/L (45-117); Anion Gap 8 (5-15); BUN 52 mg/dL (7-18); Calcium,Total 8.1 mg/dL (8.5-10.1); Chloride 100 mmol/L (98-107); Cholesterol 68 mg/dL (200); Creatinine, Serum 6.47 mg/dL (0.70-1.30); EST Glomerular Filtration Rate 9 mL/min (>60); Est Glom Filt Rate - Afr Amer 11 mL/min (>60); Estimated Creatinine Clearance 8.81 ml/min; Globulin 3.6 g/dL (2.2-4.2); Glucose 126 mg/dL (74-106); High Density Lipoprotein 12 mg/dL; Potassium 3.2 mmol/L (3.5-5.1); Protein, Total 5.3 g/dL (6.4-8.2); Sodium Level 139 mmol/L (136-145); T4 Free Direct 0.83 ng/dL (0.76-1.46); Triglycerides 215 mg/dL; Very Low Density Lipoprotein 43 mg/dL (5-40)
[2022-08-31 05:21] LABS: Anisocytosis 1+; Macrocytosis 2+
--- NOTE | 2022-08-31 06:25 | NURSING ---
Spoke with [facility] answering service about routine consult for patient. Information was exchanged and they stated they would reach out to see him today.
--- NOTE | 2022-08-31 07:14 | CON.PCM.CC_ITS ---
Assessment & Plan Assessment/Plan (1) Acute hypotension: PLAN: Plan RECOMMENDATIONS: 1. Supplemental IV fluids per nephrology. 2. Echocardiogram is pending. 3. Encourage incentive spirometer use and mobilize patient as tolerated. 4. Ongoing dialysis support per nephrology recommendations. 5. The patient is medically stable for transfer out of the intensive care unit. 6. Will sign off from a critical care perspective. Please call with any additional questions. IMPRESSIONS: 1. Hypotension/near syncope I suspect the patient's presenting symptoms were likely the consequence of intravascular volume depletion. The patient's hemodynamic status and symptoms have improved with volume resuscitation. The patient never required any form of vasopressor support. 2. Lactic acidemia Likely secondary to tissue hypoperfusion in the setting of intravascular volume depletion. The patient's lactate level has normalized with volume resuscitation. Although he was initially started on empiric antimicrobials over concerns for pneumonia, I do not have any suspicion of an underlying pulmonary infectious process. Although the patient is typically anuric, a urine analysis and culture were sent. The patient can be continued on Zosyn until cultures have been finalized. 3. History of atrial fibrillation/end-stage renal disease on hemodialysis/anemia/dementia Complicates care, management, recovery and prognosis. Continue supportive care as noted above. This note was generated with [employer] dictation software. It may contain incorrect words, spelling, and punctuation that were not noted in checking the note before signing. HPI Consult Data Date of Consult: 08/31/22 HPI Narrative Reason for Consultation: Hypotension HPI Narrative: The patient is an 82-year-old male, with a history as outlined below, who presented to the emergency department via EMS on August 30 from his dialysis center with a near syncopal event and hypotension. The patient has a known history of end-stage renal disease on hemodialysis along with anemia of chronic disease. On presentation to the emergency department, the patient was noted to be afebrile with a blood pressure of 94/50 mmHg. He was maintaining appropriate oxygen saturations on room air. Initial laboratory evaluation revealed a white blood cell count of 15,000. Chemistry profile was notable for a lactate of 6.2 and troponin of 191. Urine analysis was positive for nitrates and leukocyte Estrace. 3+ urine bacteria was noted. COVID PCR was positive. Chest x-ray demonstrated no focal infiltrate or consolidation. The patient received a total of 2.5 L of supplemental IV fluids and was started on antimicrobials. He was admitted to the medical intensive care unit for further management. No overnight issues were identified by the nursing staff. The patient never had to be started on vasopressor support. The patient was also noted to be positive for adenovirus on his respiratory viral panel. [facility] Medical History (Updated 08/31/22 @ 09:[address] Vladimir Santiago MD) Anemia in chronic kidney disease COVID-19 Dementia ESRD (end stage renal disease) on dialysis Hyperlipidemia Hypertension PAF (paroxysmal atrial fibrillation) Home Medications amiodarone 200 mg tablet 200 mg PO DAILY HEART 03/10/22 [History Last Taken 0 08/30/22] losartan 25 mg tablet 25 mg PO DAILY BP 03/10/22 [History Last Taken 08/30/22] donepezil 10 mg tablet 10 mg PO QHS 07/08/22 [History Last Taken 08/29/22] aspirin 81 mg tablet,delayed release 81 mg PO DAILY 08/30/22 [History Last Taken 08/30/22] ceftriaxone 1 gram solution for injection 1 g IM QHS 08/30/22 [History Last Taken 08/29/22] doxycycline monohydrate 100 mg capsule 100 mg PO BID 08/30/22 [History Last Taken Unknown] levothyroxine 50 mcg tablet 50 mcg PO DAILY THYROID 08/30/22 [History Last Taken 08/30/22] loratadine 10 mg tablet (Claritin) 10 mg PO DAILY ALLERGIES 08/30/22 [History Last Taken 08/30/22] sertraline 50 mg tablet (Zoloft) 50 mg PO DAILY 08/30/22 [History Last Taken 08/29/22] tramadol 50 mg tablet 50 mg PO Q8H PRN Pain 08/30/22 [History Last Taken 08/30/22] Allergy/AdvReac Type Severity Reaction Status Date / Time HEART MED Allergy PT UNSURE Uncoded 07/18/22 07:51 OF REACTION Family History (Updated 08/30/22 @ 16:[address] Deloris Toscano MD) Mother Heart disease Hypertension Father Heart disease Hypertension Surgical History History of colon resection S/P arteriovenous (AV) fistula creation Social History (Updated 08/30/22 @ 13:[address] Damon Burnette MD) household members: none housing: jail Smoking Status: Never smoker substance use type: does not use ROS ROS Narrative 10 systems reviewed with pertinent positives as noted in the HPI above. Physical Exam Const alert and no apparent distress General Appearance: cooperative HEENT normocephalic and head/scalp atraumatic Eyes PERRL, EOMs intact bilaterally and conjunctivae normal Neck supple General: trachea midline Chest inspection of chest normal Resp normal respiratory effort Auscultation: diminished lung sounds; Negative for rales, rhonchi or wheezes Cardio S1 normal heart sound and S2 normal heart sound Rhythm: abnormal rhythm GI normal to inspection, nondistended, normoactive bowel sounds Extremity no clubbing, cyanosis or edema Skin no rashes or lesions noted Neuro CN's II-XII intact bilaterally, moves all extremities and no focal motor deficits Psych cooperative and affect normal Lab / Micro Data Result Diagrams: 08/31/22 04:40 08/31/22 04:40 Labs: Laboratory Results - last 24 hr 08/30/22 13:44: WBC 15.2 H, RBC 2.83 L, Hgb 9.5 L, Hct 28.7 L, MCV 101.4 H, MCH 33.6 H, MCHC 33.1 D, RDW Std Deviation 61.4 H, RDW Coeff of Mauro 16.6 H, Plt Count 226, MPV 11.3, Immature Gran % (Auto) 4.000 H, Neut % (Auto) 81.7 H, Lymph % (Auto) 4.3 L, O'Brien % (Auto) 9.4, Eos % (Auto) 0.3, Baso % (Auto) 0.3, Absolute Neuts (auto) 12.4 H, Absolute Lymphs (auto) 0.66 L, Nucleated RBC % 0 08/30/22 13:44: Sodium 139, Potassium 3.4 L, Chloride 98, Carbon Dioxide 28.0, Anion Gap 13, BUN 44 H, Creatinine 6.30 H, Estim Creat Clear Calc 9.15, Est GFR (MDRD) Af Amer 11 L, Est GFR (MDRD) Non-Af 9 L, BUN/Creatinine Ratio 7.0 L, Glucose 155 H, Calcium 9.2, Troponin I High Sens 191 H* 08/30/22 13:44: Troponin I High Sens Cancelled 08/30/22 13:44: Lactic Acid 6.2 H* 08/30/22 16:28: Troponin I High Sens 161 H* 08/30/22 16:28: Phosphorus 3.6, Magnesium 1.7 08/30/22 18:25: Lactic Acid 1.1 08/30/22 19:03: MRSA (PCR) Negative 08/30/22 19:28: COVID-19 (MAU) Detected 08/30/22 21:30: PT 12.9, INR 1.0, APTT 34.5 08/30/22 21:30: Procalcitonin 7.30 H 08/30/22 21:30: Troponin I High Sens 169 H* 08/31/22 04:40: WBC 16.9 H, RBC 2.67 L, Hgb 8.7 L, Hct 27.3 L, MCV 102.2 H, MCH 32.6 H, MCHC 31.9 L, RDW Std Deviation 62.4 H, RDW Coeff of Mauro 16.6 H, Plt Count 209, MPV 11.3, Immature Gran % (Auto) 4.400 H, Neut % (Auto) 77.3 H, Lymph % (Auto) 5.0 L, O'Brien % (Auto) 11.8 H, Eos % (Auto) 1.3, Baso % (Auto) 0.2, Absolute Neuts (auto) 13.1 H, Absolute Lymphs (auto) 0.84, Nucleated RBC % 0, Diff Path Review May foll, Anisocytosis 1+, Macrocytosis 2+ 08/31/22 04:40: Sodium 139, Potassium 3.2 L, Chloride 100, Carbon Dioxide 31.0, Anion Gap 8, BUN 52 H, Creatinine 6.47 H, Estim Creat Clear Calc 8.81, Est GFR (MDRD) Af Amer 11 L, Est GFR (MDRD) Non-Af 9 L, BUN/Creatinine Ratio 8.0 L, Glucose 126 H, Calcium 8.1 L, Total Bilirubin 0.30, AST 22, ALT 13 L, Alkaline Phosphatase 95, Total Protein 5.3 L, Albumin 1.7 L, Globulin 3.6, Albumin/Globulin Ratio 0.5 L, Triglycerides 215 H, Cholesterol 68, LDL Cholesterol 13, VLDL Cholesterol 43 H, HDL Cholesterol 12 L, TSH 4.20 H, Free T4 0.83 08/31/22 04:40: APTT 151.4 H* Micro: Microbiology 08/30/22 19:28 Mucosa - Nasopharyngeal Respiratory Panel (PCR) - Final Adenovirus Radiology Impression Chest X-Ray 08/30/22 14:20 IMPRESSION: Mild increased linear markings at the lung bases slightly worse on the left side with blunting of the left cardiac phrenic angle. This suggests probably atelectasis and possible scarring Electronically Signed: Georges Hodgson MD at 14:43 EST , Charges/Coding Visit Charges Inpatient E&M: 56866 Init Hosp L3
--- NOTE | 2022-08-31 07:24 | PCM.PN.HOSP ---
Subjective Subjective Follow-up for hypertension postdialysis and decreased level of consciousness Objective Data Objective Data Vital Signs: Vital Signs Temp Pulse Resp BP Pulse Ox O2 Del Method O2 Flow Rate 98.5 F 78 13 113/43 L 95 Room Air 1 08/31/22 00:00 08/31/22 06:00 08/31/22 06:00 08/31/22 06:00 08/31/22 06:00 08/31/22 06:00 08/31/22 03:00 Oxygen Flow Rate (L/min) 1 Oxygen Delivery Method Room Air Weight: 155 lb 3.287 oz Body Mass Index (BMI) 22.2 Intake & Output: Intake and Output for Last 24 Hours 08/29/22 08/30/22 08/31/22 23:59 23:59 23:59 Intake Total 1250 / 1250 1579.67 / 1579.67 Balance 1250 / 1250 1579.67 / 1579.67 Lab / Micro Data Result Diagrams: 08/31/22 04:40 08/31/22 04:40 Labs: Laboratory Results - last 24 hr 08/30/22 13:44: WBC 15.2 H, RBC 2.83 L, Hgb 9.5 L, Hct 28.7 L, MCV 101.4 H, MCH 33.6 H, MCHC 33.1 D, RDW Std Deviation 61.4 H, RDW Coeff of Mauro 16.6 H, Plt Count 226, MPV 11.3, Immature Gran % (Auto) 4.000 H, Neut % (Auto) 81.7 H, Lymph % (Auto) 4.3 L, [place] % (Auto) 9.4, Eos % (Auto) 0.3, Baso % (Auto) 0.3, Absolute Neuts (auto) 12.4 H, Absolute Lymphs (auto) 0.66 L, Nucleated RBC % 0 08/30/22 13:44: Sodium 139, Potassium 3.4 L, Chloride 98, Carbon Dioxide 28.0, Anion Gap 13, BUN 44 H, Creatinine 6.30 H, Estim Creat Clear Calc 9.15, Est GFR (MDRD) Af Amer 11 L, Est GFR (MDRD) Non-Af 9 L, BUN/Creatinine Ratio 7.0 L, Glucose 155 H, Calcium 9.2, Troponin I High Sens 191 H* 08/30/22 13:44: Troponin I High Sens Cancelled 08/30/22 13:44: Lactic Acid 6.2 H* 08/30/22 16:28: Troponin I High Sens 161 H* 08/30/22 16:28: Phosphorus 3.6, Magnesium 1.7 08/30/22 18:25: Lactic Acid 1.1 08/30/22 19:03: MRSA (PCR) Negative 08/30/22 19:28: COVID-19 (MAU) Detected 08/30/22 21:30: PT 12.9, INR 1.0, APTT 34.5 08/30/22 21:30: Procalcitonin 7.30 H 08/30/22 21:30: Troponin I High Sens 169 H* 08/31/22 04:40: WBC 16.9 H, RBC 2.67 L, Hgb 8.7 L, Hct 27.3 L, MCV 102.2 H, MCH 32.6 H, MCHC 31.9 L, RDW Std Deviation 62.4 H, RDW Coeff of Mauro 16.6 H, Plt Count 209, MPV 11.3, Immature Gran % (Auto) 4.400 H, Neut % (Auto) 77.3 H, Lymph % (Auto) 5.0 L, Lagrange % (Auto) 11.8 H, Eos % (Auto) 1.3, Baso % (Auto) 0.2, Absolute Neuts (auto) 13.1 H, Absolute Lymphs (auto) 0.84, Nucleated RBC % 0, Diff Path Review May foll, Anisocytosis 1+, Macrocytosis 2+ 08/31/22 04:40: Sodium 139, Potassium 3.2 L, Chloride 100, Carbon Dioxide 31.0, Anion Gap 8, BUN 52 H, Creatinine 6.47 H, Estim Creat Clear Calc 8.81, Est GFR (MDRD) Af Amer 11 L, Est GFR (MDRD) Non-Af 9 L, BUN/Creatinine Ratio 8.0 L, Glucose 126 H, Calcium 8.1 L, Total Bilirubin 0.30, AST 22, ALT 13 L, Alkaline Phosphatase 95, Total Protein 5.3 L, Albumin 1.7 L, Globulin 3.6, Albumin/Globulin Ratio 0.5 L, Triglycerides 215 H, Cholesterol 68, LDL Cholesterol 13, VLDL Cholesterol 43 H, HDL Cholesterol 12 L, TSH 4.20 H, Free T4 0.83 08/31/22 04:40: APTT 151.4 H* Micro: Microbiology 08/30/22 19:28 Mucosa - Nasopharyngeal Respiratory Panel (PCR) - Final Adenovirus Radiography Diagnostic Testing: Radiology Impression Chest X-Ray 08/30/22 14:20 IMPRESSION: Mild increased linear markings at the lung bases slightly worse on the left side with blunting of the left cardiac phrenic angle. This suggests probably atelectasis and possible scarring Electronically Signed: Georges Hodgson MD at 14:43 EST , Physical Exam Narrative As per EMS documentation, BP was low 80s systolic 81/36, heart rate 90/min. Patient was in A. fib. There were shaking movement and hypotension in dialysis and was thought seizure by nurse but not actual seizure. Patient is COVID-19 PCR positive since July. General: Alert, Oriented x3, Cooperative, states he feels normal HEENT: Atraumatic, PERRLA, EOMI, Normocephalic Oral: Oral mucosa moist. No Gingival or Mucosal Lesions/ Ulcerations Neck: Supple, No JVD, Negative Carotid Bruits Lungs: Air entry diminished in bilateral lung bases. No crepitation/rhonchi Cardiovascular: Regular rate, Regular Rhythm, Normal S1, Normal S2, No murmurs Abdomen: Bowel Sounds Present, Soft, Non Tender, Non-Distended : No renal angle tenderness. No suprapubic tenderness. Extremities: No edema, Capillary Refill Less than 3 Seconds Skin: No rashes, No breakdown Musculoskeletal: No Tenderness to Palpation of Joints or Extremities Neurological: Cranial nerves II-XII grossly intact, DTR 2+/4 and Symmetrical, Neuro grossly intact Psych/Mental Status: Normal affect. Assessment & Plan Assessment/Plan (1) Acute hypotension: PLAN: Plan This 82-year-old male with multiple comorbidities was admitted through ER for hypotension and unresponsiveness during hemodialysis. 1. Hypotension and unresponsiveness consistent with syncope during hemodialysis: Most probably due to intravascular volume depletion. Patient was volume resuscitated and he feels normal. Did not require any vasopressor support. 2. Lactic acidemia: Patient lactic acid was elevated 6.2 probably due to volume depletion/hypoperfusion. Patient empirically started on IV antibiotic. Patient denies any symptoms of cough, acute shortness of breath or change in respiratory pattern therefore less likely pneumonia or sepsis. Follow cultures. 3.? A. fib: Patient troponin was elevated 191. EKG shows atrial fibrillation with no acute evidence of ischemia. Repeat troponin shows 161 and 169, downward trend therefore I do not think patient has AR either STEMI or non-STEMI. Probably mild myocardial injury from hypotension. 2D echo is ordered. Patient not on anticoagulation. 4. Subclinical hypothyroidism: TSH was 6.24 on 08/22/2022, today TSH 4.2 and free T4 0.83. Monitor thyroid function test after 3 months. #5. Anemia of chronic disease/CKD: Admission hemoglobin 9.5. Baseline runs between 9-10. Today 8.7. 6 ESRD on hemodialysis: Discussed with the hearing examiner. Plan for dialysis on 09/01/2022 Other multiple comorbidities include dementia with unclear behavioral disturbance/abnormality, hypertension, dyslipidemia: Home medication reconciliation done. DVT prophylaxis: On heparin subcutaneous. ? CODE STATUS: Full code per facility paperwork. Total time of the visit including total time spent in counseling or coordination of care, (more than 50% of the total time, spent in obtaining medical information from nurses and other ancillary care providers,explaining to the patient about labs, imaging, diagnosis and management of active complex medical conditions), discussion with consultants, review of labs and imaging is 50 minutes. Clinical Impression(s) from Imaging Studies-- Chest X-Ray 08/30/22 14:20 IMPRESSION: Mild increased linear markings at the lung bases slightly worse on the left side with blunting of the left cardiac phrenic angle. This suggests probably atelectasis and possible scarring Charges/Coding Visit Charges Inpatient E&M: 79130 Subs Hosp L3
--- NOTE | 2022-08-31 09:07 | PCM.CONS.R ---
Assessment & Plan Assessment/Plan (1) ESRD on hemodialysis: (2) Acute hypotension: (3) Anemia in chronic kidney disease: PLAN: Plan Impression/Plan: The patient is a 82-year-old man with past history of ESRD, hypertension, paroxysmal atrial fibrillation, dementia, chronic anemia, and hypothyroidism. He presented to the hospital from dialysis unit after completion of his dialysis on 08/30/2022 with syncopal episode and hypotension. The patient admitted to the hospital in 06/30/2023 with hypotension and acute hypoxic respiratory failure secondary to pneumonia. Nephrology is following for ESRD and dialysis management. ESRD. The patient usually dialyzes at [facility] on MWF schedule. He is followed there by Dr. Breaux. The patient completed dialysis yesterday prior to admission. Therefore, I arrange for dialysis on his usual schedule tomorrow. Hypotension. The patient presented with BP as low as 77/43. The patient actually has a history of hypertension and was on losartan prior to admission. Acute hypotension could possibly be due to infection as his white blood cell count was 26,000 on 08/29/2022. Hypotension could also be from excessive volume removal with dialysis prior to admission as well. The patient is not volume overloaded, so I will reassess target weight for dialysis tomorrow. BP is better today, and he is not requiring vasopressor. Anemia. Hemoglobin is 8.7 g/dL today. The patient likely has multifactorial anemia. He is macrocytic. He certainly has a component of anemia in chronic kidney disease. I will continue KRYSTA with dialysis. Work-up for other causes of anemia such as B12/folate deficiency is deferred to primary service. HPI Consult Data Date of Consult: 09/01/22 HPI Narrative Reason for Consultation: ESRD HPI Narrative: ANNE-MARIE DAVIES, is a 82-year-old man with past history of ESRD, hypertension, paroxysmal atrial fibrillation, dementia, chronic anemia, and hypothyroidism. He presented to the hospital from SNF dialysis unit after completion of his dialysis on 08/30/2022 with syncopal episode and hypotension. The patient was admitted to the hospital on 08/30/2022 with acute hypoxic respiratory failure thought to be secondary to pneumonia. The patient also had an elevated troponin on presentation which was thought to be secondary to type II NSTEMI. Nephrology is asked to see the patient to help with dialysis management in ESRD patient. The patient denies current CP, dyspnea at rest or nausea. There is no edema. He denies current dizziness. The patient usually dialyzes at [facility] via [facility] dialysis [address] Breaux is his primary manager medical writing. [facility] Medical History (Updated 08/31/22 @ 09:[address] Vladimir Santiago MD) Anemia in chronic kidney disease COVID-19 Dementia ESRD (end stage renal disease) on dialysis Hyperlipidemia Hypertension PAF (paroxysmal atrial fibrillation) Home Medications amiodarone 200 mg tablet 200 mg PO DAILY HEART 03/10/22 [History Last Taken 08/30/22] losartan 25 mg tablet 25 mg PO DAILY BP 03/10/22 [History Last Taken 08/30/22] donepezil 10 mg tablet 10 mg PO QHS 07/08/22 [History Last Taken 08/29/22] aspirin 81 mg tablet,delayed release 81 mg PO DAILY 08/30/22 [History Last Taken 08/30/22] ceftriaxone 1 gram solution for injection 1 g IM QHS 08/30/22 [History Last Taken 08/29/22] doxycycline monohydrate 100 mg capsule 100 mg PO BID 08/30/22 [History Last Taken Unknown] levothyroxine 50 mcg tablet 50 mcg PO DAILY THYROID 08/30/22 [History Last Taken 08/30/22] loratadine 10 mg tablet (Claritin) 10 mg PO DAILY ALLERGIES 08/30/22 [History Last Taken 08/30/22] sertraline 50 mg tablet (Zoloft) 50 mg PO DAILY 08/30/22 [History Last Taken 08/29/22] tramadol 50 mg tablet 50 mg PO Q8H PRN Pain 08/30/22 [History Last Taken 08/30/22] Allergy/AdvReac Type Severity Reaction Status Date / Time HEART MED Allergy PT UNSURE Uncoded 07/18/22 07:51 OF REACTION Family History (Updated 08/30/22 @ 16:[address] Deloris Toscano MD) Mother Heart disease Hypertension Father Heart disease Hypertension Surgical History History of colon resection S/P arteriovenous (AV) fistula creation Social History (Updated 08/30/22 @ 13:[address] Damon Burnette MD) household members: none housing: [facility] Smoking Status: Never smoker substance use type: does not use ROS ROS Narrative 05/29 ROS was done and is otherwise noncontributory other than what is already documented in HPI. Physical Exam Narrative General:?Alert and no apparent distress HEENT:?Normocephalic, head/scalp atraumatic and moist oral mucous membranes, PERRLA, EOMI, hearing is? intact. Neck:?Supple, no JVD Heart: Irregulary irregular S1, S2. No R/M/G. Lungs: Diminished lung sounds; Negative for rales, rhonchi or wheezes Abdomen:?Normal bowel sound, soft, nontender, nondistended, normoactive bowel sounds Extremity: No edema. No clubbing or cyanosis. LUE AVE with bruit. Skin: Warm+dry. No rash. General Skin Exam: venous stasis and dermatitis Neurologic: Alert and?oriented x3, CN's II-XII intact bilaterally, moves all extremities and no focal motor deficits Psychiatric: Normal mood and affect. Lab / Micro Data Result Diagrams: 08/31/22 04:40 08/31/22 04:40 Labs: Laboratory Results - last 24 hr 08/30/22 13:44: WBC 15.2 H, RBC 2.83 L, Hgb 9.5 L, Hct 28.7 L, MCV 101.4 H, MCH 33.6 H, MCHC 33.1 D, RDW Std Deviation 61.4 H, RDW Coeff of Mauro 16.6 H, Plt Count 226, MPV 11.3, Immature Gran % (Auto) 4.000 H, Neut % (Auto) 81.7 H, Lymph % (Auto) 4.3 L, Mcclain % (Auto) 9.4, Eos % (Auto) 0.3, Baso % (Auto) 0.3, Absolute Neuts (auto) 12.4 H, Absolute Lymphs (auto) 0.66 L, Nucleated RBC % 0 08/30/22 13:44: Sodium 139, Potassium 3.4 L, Chloride 98, Carbon Dioxide 28.0, Anion Gap 13, BUN 44 H, Creatinine 6.30 H, Estim Creat Clear Calc 9.15, Est GFR (MDRD) Af Amer 11 L, Est GFR (MDRD) Non-Af 9 L, BUN/Creatinine Ratio 7.0 L, Glucose 155 H, Calcium 9.2, Troponin I High Sens 191 H* 08/30/22 13:44: Troponin I High Sens Cancelled 08/30/22 13:44: Lactic Acid 6.2 H* 08/30/22 16:28: Troponin I High Sens 161 H* 08/30/22 16:28: Phosphorus 3.6, Magnesium 1.7 08/30/22 18:25: Lactic Acid 1.1 08/30/22 19:03: MRSA (PCR) Negative 08/30/22 19:28: COVID-19 (MAU) Detected 08/30/22 21:30: PT 12.9, INR 1.0, APTT 34.5 08/30/22 21:30: Procalcitonin 7.30 H 08/30/22 21:30: Troponin I High Sens 169 H* 08/31/22 04:40: WBC 16.9 H, RBC 2.67 L, Hgb 8.7 L, Hct 27.3 L, MCV 102.2 H, MCH 32.6 H, MCHC 31.9 L, RDW Std Deviation 62.4 H, RDW Coeff of Mauro 16.6 H, Plt Count 209, MPV 11.3, Immature Gran % (Auto) 4.400 H, Neut % (Auto) 77.3 H, Lymph % (Auto) 5.0 L, Mcclain % (Auto) 11.8 H, Eos % (Auto) 1.3, Baso % (Auto) 0.2, Absolute Neuts (auto) 13.1 H, Absolute Lymphs (auto) 0.84, Nucleated RBC % 0, Diff Path Review May foll, Anisocytosis 1+, Macrocytosis 2+ 08/31/22 04:40: Sodium 139, Potassium 3.2 L, Chloride 100, Carbon Dioxide 31.0, Anion Gap 8, BUN 52 H, Creatinine 6.47 H, Estim Creat Clear Calc 8.81, Est GFR (MDRD) Af Amer 11 L, Est GFR (MDRD) Non-Af 9 L, BUN/Creatinine Ratio 8.0 L, Glucose 126 H, Calcium 8.1 L, Total Bilirubin 0.30, AST 22, ALT 13 L, Alkaline Phosphatase 95, Total Protein 5.3 L, Albumin 1.7 L, Globulin 3.6, Albumin/Globulin Ratio 0.5 L, Triglycerides 215 H, Cholesterol 68, LDL Cholesterol 13, VLDL Cholesterol 43 H, HDL Cholesterol 12 L, TSH 4.20 H, Free T4 0.83 08/31/22 04:40: APTT 151.4 H* Micro: Microbiology 08/30/22 19:28 Mucosa - Nasopharyngeal Respiratory Panel (PCR) - Final Adenovirus Radiology Impression Chest X-Ray 08/30/22 14:20 IMPRESSION: Mild increased linear markings at the lung bases slightly worse on the left side with blunting of the left cardiac phrenic angle. This suggests probably atelectasis and possible scarring Electronically Signed: Georges Hodgson MD at 14:43 EST ,
--- NOTE | 2022-08-31 09:39 | PCM.RX.CS ---
Consult Pharmacy has been consulted to manage selected antiobiotic: Vancomycin Type of Consult: Follow-up Suspected Infection: Pneumonia Labs: Sodium 139 mmol/L (136-145) 08/31/22 04:40 Potassium 3.2 mmol/L (3.5-5.1) L 08/31/22 04:40 Chloride 100 mmol/L (98-107) 08/31/22 04:40 Carbon Dioxide 31.0 mmol/L (21.0-32.0) 08/31/22 04:40 Anion Gap 8 (5-15) 08/31/22 04:40 BUN 52 mg/dL (7-18) H 08/31/22 04:40 Creatinine 6.47 mg/dL (0.70-1.30) H 08/31/22 04:40 Est GFR (MDRD) Af Amer 11 mL/min (>60) L 08/31/22 04:40 Est GFR (MDRD) Non-Af 9 mL/min (>60) L 08/31/22 04:40 BUN/Creatinine Ratio 8.0 RATIO (10-20) L 08/31/22 04:40 Glucose 126 mg/dL (74-106) H 08/31/22 04:40 Microbiology: Microbiology 08/30/22 19:28 Mucosa - Nasopharyngeal Respiratory Panel (PCR) - Final Adenovirus Goal Trough: 15-20 mcg/mL Pharmacy Plan for Drug Dosing: The patient had vancomycin ordered on 08/31/22 for treatment of pneumonia. Patient had initial dose in the ED of 1000mg. Patient is HD dependent, and pharmacy was verifying HD schedule prior to ordering another dose. In the meantime, MRSA nasal PCR resulted negative and COVID and Respiratory panel resulted positive. Discussed in ICU rounds this morning, ok to DC vancomycin given likelyhood of viral etiology. No further doses of vancomycin will be given at this time, trough is not ordered d/t medication being DC'd. Pharmacy Service will continue to monitor and adjust dosing as required.
[2022-08-31] MEDS: Loratadine 10 MG Tablet PO (10:07)
[2022-08-31] MEDS: guaiFENesin 600 MG Tablet PO ×2 (10:07→20:32)
[2022-08-31] MEDS: Amiodarone 200 MG Tablet PO (10:07)
[2022-08-31] MEDS: Aspirin 81 MG TAB.CHEW PO (10:07)
[2022-08-31] MEDS: Sertraline 50 MG Tablet PO (10:08)
--- NOTE | 2022-08-31 13:21 | CHAPLAIN ---
Type of Pastoral Visit _x__ Initial Visit ___ Follow-up Visit ___ On-call Visit ___ General Patient Visit ___ Spiritual Assessment ___ Family Conference ___ Bereavement ___ Rapid Response ___ Code Blue ___ Other (describe below) Pastoral Care Referral From _x__ Patient ___ Family ___ Nurse ___ Physician ___ Director [employer] ___ [employer] ___ Other (describe below) Sacrament/Intervention _x__ Active listening ___ Anointing ___ Yarsanism ___ Bereavement ___ Communion ___ Donna exploration ___ _x__ Life review _x__ Prayer ___ Reconciliation ___ Sacrament of Sick _x__ Supportive presence ___ Wedding ___ Other (describe below) Pastoral Comments patient reports that he is feeling better than yesterday; pt states that he has support and is living with his at [facility]; pt speaks of his enjoyment of being around people; pt talks about life and weather; pt says no other concerns; prayer given
--- NOTE | 2022-08-31 15:02 | CASEMGMT ---
Social Work SW met with pt and introduced self and role of SW. Pt confirms that he is currently staying at [facility] and plans to return there upon discharge. Pt denies need for addition SNF options. SW will continue to follow for readmission to [facility] when medically appropriate. Plan: [facility], when medically ready ALFONSO Ludwig
[2022-08-31] MEDS: Menthol/Lanolin/Calamine/Znox 113 GM Tube 1 APPLIC TOPICAL (20:31)
[2022-08-31] MEDS: Donepezil HCl 10 MG Tablet PO (20:32)
[2022-08-31] MEDS: Heparin Injection (Vial) 5,000 UNIT/ML VIAL 5000 UNIT SC (20:32)
[2022-08-31] MEDS: traMADol 50 MG Tablet PO (20:52)
[2022-09-01] VITALS: BP 114/47; PULSE 68; RESP 16; TEMP 36.7; O2SAT 93
[2022-09-01 04:00] VITALS: BP 121/44; PULSE 78; RESP 18; TEMP 36.8; O2SAT 100
[2022-09-01] MEDS: Levothyroxine 50 MCG Tablet PO (05:46)
[2022-09-01] MEDS: 0.9% Normal Saline 1,000 ML 100 ML IV (05:46)
[2022-09-01 08:45] VITALS: BP 132/45; PULSE 76; RESP 14; TEMP 36.4; O2SAT 96
[2022-09-01 09:47] VITALS: O2SAT 96
--- NOTE | 2022-09-01 10:05 | PCM.PN.REN ---
Documented by User: JOVI Rosales 09/01/22 10:13 Subjective Subjective Following for ESRD Patient resting in bed, seen and examined on dialysis. Denies any complaints. States feeling better overall. No overnight events. Objective Data Objective Data Vital Signs: Vital Signs Temp Pulse Resp BP Pulse Ox O2 Del Method O2 Flow Rate 97.6 F L 76 14 132/45 H 96 Room Air 1 09/01/22 08:45 09/01/22 08:45 09/01/22 08:45 09/01/22 08:45 09/01/22 09:47 09/01/22 09:47 08/31/22 03:00 Oxygen Flow Rate (L/min) 1 Oxygen Delivery Method Room Air Weight: 72.2 kg Body Mass Index (BMI) 22.2 Intake & Output: Intake and Output for Last 24 Hours 08/30/22 08/31/22 09/01/22 23:59 23:59 23:59 Intake Total 1250 / 1250 2672.02 / 2672.02 1050 / 1050 Balance 1250 / 1250 2672.02 / 2672.02 1050 / 1050 Lab / Micro Data Result Diagrams: 08/31/22 04:40 08/31/22 04:40 Micro: Microbiology 08/31/22 20:15 Stool C. difficile DNA Amplification - Final 08/30/22 19:28 Mucosa - Nasopharyngeal Respiratory Panel (PCR) - Final Adenovirus Physical Exam Narrative General:?Alert and no apparent distress Heart: Irregulary irregular S1, S2. No R/M/G. Lungs: Lung sounds clear anteriorly. Negative for rales, rhonchi or wheezes Abdomen:?Normal bowel sounds Extremity: No edema Left arm AV fistula positive thrill and bruit, accessed for dialysis Assessment & Plan Assessment/Plan (1) ESRD on hemodialysis: (2) Acute hypotension: (3) Anemia in chronic kidney disease: PLAN: Plan - ESRD. Patient to dialyze today over 3 hours with no more than 1 L UF. Patient is near EDW. Outpatient dialysis is now at [facility] Sunday schedule followed by Dr. Breaux. Before admission to [facility], patient had been dialyzing at [facility] on MWF schedule. - Blood pressures improved. He is no longer requiring pressor support. We will discontinue IV fluids. Patient is essentially anuric. Echo: Moderate LVH, left ventricular systolic function hyperdynamic, LVEF 70% - Hemoglobin is 8.7 g/dL. The patient likely has multifactorial anemia. He is macrocytic. Patient to receive KRYSTA with HD today. - On antibiotics, Zosyn. Blood cultures so far no growth. C. difficile negative Documented by User: Dr. Vladimir Santiago MD 09/01/22 16:32 Objective Data Lab / Micro Data Result Diagrams: 08/31/22 04:40 08/31/22 04:40 Assessment & Plan Assessment/Plan (1) ESRD on hemodialysis: (2) Acute hypotension: (3) Anemia in chronic kidney disease: PLAN: Plan - ESRD. Patient to dialyze today over 3 hours with no more than 1 L UF. Patient is near EDW. Outpatient dialysis is now at [facility] Sunday schedule followed by Dr. Breaux. Before admission to [facility], patient had been dialyzing at [facility] dialysis center on MWF schedule. - Blood pressures improved. He is no longer requiring pressor support. We will discontinue IV fluids. Patient is essentially anuric. Echo: Moderate LVH, left ventricular systolic function hyperdynamic, LVEF 70% - Hemoglobin is 8.7 g/dL. The patient likely has multifactorial anemia. He is macrocytic. Patient to receive KRYSTA with HD today. - On antibiotics, Zosyn. Blood cultures so far no growth. C. difficile negative Nephrology attending addendum: The patient was seen during hemodialysis treatment. He tolerated dialysis well. We use F160 dialyzer, blood flow 400, dialysate flow 600. 3K dialysate was used. The patient tolerated dialysis well without hypotension. From our standpoint, the patient will be discharged back to SNF. We will follow-up with the patient there. Davi Grier MD
--- NOTE | 2022-09-01 10:24 | PCM.PN.HOSP ---
Objective Data Objective Data Vital Signs: Vital Signs Temp Pulse Resp BP Pulse Ox O2 Del Method O2 Flow Rate 97.6 F L 76 14 132/45 H 96 Room Air 1 09/01/22 08:45 09/01/22 08:45 09/01/22 08:45 09/01/22 08:45 09/01/22 09:47 09/01/22 09:47 08/31/22 03:00 Oxygen Flow Rate (L/min) 1 Oxygen Delivery Method Room Air Weight: 159 lb 2.78 oz Body Mass Index (BMI) 22.2 Intake & Output: Intake and Output for Last 24 Hours 08/30/22 08/31/22 09/01/22 23:59 23:59 23:59 Intake Total 1250 / 1250 2672.02 / 2672.02 1050 / 1050 Balance 1250 / 1250 2672.02 / 2672.02 1050 / 1050 Lab / Micro Data Result Diagrams: 08/31/22 04:40 08/31/22 04:40 Micro: Microbiology 08/31/22 20:15 Stool C. difficile DNA Amplification - Final 08/30/22 19:28 Mucosa - Nasopharyngeal Respiratory Panel (PCR) - Final Adenovirus
--- NOTE | 2022-09-01 11:10 | PCM.TXEXTCAR ---
Diet Diet Order/Speech Therapy: 08/31/22 11:05 Diet: Renal - General Food consistency:: Regular Liquid Consistency:: Regular/Thin Dietary Modifications:: Cardiac / Heart Healthy Type of Dietary Supplement:: Tigre Diet Comments: Tigre BID with lunch and dinner Routine Orders/Code Status Suppository Type: Dulcolax 10mg Suppository Frequency: Daily PRN Code Status: Full Code Wound(s) Groin: Wound Type: Excoriation Coccyx: Wound Type: Pressure Injury Therapies Weight Bearing: Weight bearing as tolerated Extremity Affected:: Bilateral Lower Physical Therapy: Eval and Treat Occupational Therapy: Eval and Treat Speech Therapy: Eval and Treat Problem/Diagnosis (1) ESRD on hemodialysis: Status: Acute Code(s): N18.6 - End stage renal disease; Z99.2 - Dependence on renal dialysis (2) Acute hypotension: Status: Acute Code(s): I95.9 - Hypotension, unspecified (3) Anemia in chronic kidney disease: Status: Chronic Code(s): N18.9 - Chronic kidney disease, unspecified; D63.1 - Anemia in chronic kidney disease Plan This 82-year-old male with multiple comorbidities was admitted through ER for hypotension and unresponsiveness during hemodialysis. 1. Hypotension and unresponsiveness consistent with syncope during hemodialysis: Most probably due to intravascular volume depletion. Patient was volume resuscitated and he feels normal. Did not require any vasopressor support. 2. Lactic acidemia: Patient lactic acid was elevated 6.2 probably due to volume depletion/hypoperfusion. Patient empirically started on IV antibiotic. Patient denies any symptoms of cough, acute shortness of breath or change in respiratory pattern therefore less likely pneumonia or sepsis. Follow cultures. 3.? A. fib: Patient troponin was elevated 191. EKG shows atrial fibrillation with no acute evidence of ischemia. Repeat troponin shows 161 and 169, downward trend therefore I do not think patient has [place] either STEMI or non-STEMI. Probably mild myocardial injury from hypotension. 2D echo is ordered. Patient not on anticoagulation. 4. Subclinical hypothyroidism: TSH was 6.24 on 08/22/2022, today TSH 4.2 and free T4 0.83. Monitor thyroid function test after 3 months. #5. Anemia of chronic disease/CKD: Admission hemoglobin 9.5. Baseline runs between 9-10. Today 8.7. 6 ESRD on hemodialysis: Discussed with the material control manager. Plan for dialysis on 09/01/2022 Other multiple comorbidities include dementia with unclear behavioral disturbance/abnormality, hypertension, dyslipidemia: Home medication reconciliation done. DVT prophylaxis: On heparin subcutaneous. ? CODE STATUS: Full code per facility paperwork. Total time of the visit including total time spent in counseling or coordination of care, (more than 50% of the total time, spent in obtaining medical information from nurses and other ancillary care providers,explaining to the patient about labs, imaging, diagnosis and management of active complex medical conditions), discussion with consultants, review of labs and imaging is 50 minutes. Clinical Impression(s) from Imaging Studies-- Chest X-Ray 08/30/22 14:20 IMPRESSION: Mild increased linear markings at the lung bases slightly worse on the left side with blunting of the left cardiac phrenic angle. This suggests probably atelectasis and possible scarring Allergies/Procedures Done in Hospital Allergies HEART MED Allergy (Uncoded 07/18/22 07:51) PT UNSURE OF REACTION Type of Care/Length of Stay Estimated LOS: Convalescent Care Less Than 30 days Type of Care Needed: Skilled Rehab Potential: Good Prognosis: Good Additional Orders/Day of Discharge Day of Discharge: 09/01/22 Dietary and Speech Recommendations Dietitian Recommendations/Changes: Continue Renal/Cardiac diet to manage medical conditions. RD will order Tigre BID with lunch and dinner to promote wound healing. Discharge Plan Admission Admit Date/Time: 08/30/22 16:12 Primary Reason for Your Visit: Hypotension and syncope after dialysis, adenovirus bronchitis Attending Provider: Brian Harrison Primary Care Provider: Care Physician,No Primary Consulting Providers: Brayan Stack ; Deloris Toscano ; Ty Breaux Discharge Orders/Prescriptions Prescriptions: New acetaminophen [Tylenol] 325 mg Tablet 650 mg PO Q4H PRN PRN (Reason: Fever, pain 1-10) Qty: 0 0RF sennosides-docusate sodium [Stool Softener-Stimulant Laxat] 8.6-50 mg Tablet 2 tab PO BID PRN (Reason: Constipation) Qty: 0 0RF guaifenesin [Mucus Relief ER] 600 mg Tablet Extended Release 12hr 600 mg PO BID 7 Days Qty: 14 0RF Continued amiodarone 200 mg tablet 200 mg PO DAILY losartan 25 mg tablet 25 mg PO DAILY donepezil 10 mg Tablet 10 mg PO QHS tramadol 50 mg Tablet 50 mg PO Q8H PRN (Reason: Pain) levothyroxine 50 mcg Tablet 50 mcg PO DAILY sertraline [Zoloft] 50 mg Tablet 50 mg PO DAILY aspirin 81 mg Tablet,Delayed Release (Dr/Ec) 81 mg PO DAILY loratadine [Claritin] 10 mg Tablet 10 mg PO DAILY Discontinued ceftriaxone 1 gram Recon Soln 1 g IM QHS Rx Instructions: FOR 7 DAYS STARTING ON 08/29 FOR RIGHT LUNG INFILTRATES doxycycline monohydrate 100 mg Capsule 100 mg PO BID Referrals / Follow Up: Ty Breaux MD [Med Staff - Consulting] - Within 1 Month Care Physician,No Primary [Primary Care Provider] - Disposition Disposition (needs filled in before D/C Order can be placed): [facility]
[2022-09-01] MEDS: Epoetin Alfa epbx 10,000 UNITS/ML 20000 UNIT SC (11:23)
[2022-09-01 11:46] LABS: Pathologist Review Reviewed
--- NOTE | 2022-09-01 12:24 | DIALYSIS ---
Treatment terminated early with 13 minutes remaining at patient request despite multiple attempts to educate patient regarding importance of compliance to prescribed dialysis regimen. Hemostasis achieved x 2 cannulation sites with 5 minutes manual pressure per site, sites are taped and secure. UF 800, Report given to facility nurse Destiny LEE
[2022-09-01] MEDS: traMADol 50 MG Tablet PO (12:38)
[2022-09-01] MEDS: Amiodarone 200 MG Tablet PO (12:38)
[2022-09-01] MEDS: Aspirin 81 MG TAB.CHEW PO (12:39)
[2022-09-01] MEDS: Heparin Injection (Vial) 5,000 UNIT/ML VIAL 5000 UNIT SC (12:39)
[2022-09-01] MEDS: Loratadine 10 MG Tablet PO (12:40)
[2022-09-01] MEDS: guaiFENesin 600 MG Tablet PO (12:40)
[2022-09-01] MEDS: Sertraline 50 MG Tablet PO (12:40)
[2022-09-01] MEDS: Menthol/Lanolin/Calamine/Znox 113 GM Tube 1 APPLIC TOPICAL (12:41)
--- NOTE | 2022-09-01 15:00 | PCM.DC.SUM ---
Providers Date of Admission: 08/30/22 Date of Discharge: 09/01/22 Primary Care Physician: Ruby Primary Care Phys Consultations 08/30/22 18:09 Consult: Software Development Coordinator / Pulmonary Medicine Routine Consulting Provider: Brayan Stack Reason for Consult: Lactic acidosis, ? PNA EMERGENT Consult: No Notified: Yes Date Notified: 08/30/22 Time Notified: 16:51 Method of Notification: Text Consult: Nephrology Routine Consulting Provider: Ty Breaux Reason for Consult: ESRD on HD [facility] EMERGENT Consult: No Notified: Yes Date Notified: 08/30/22 Time Notified: 16:53 Method of Notification: Answering Service Reason For Visit: HYPOXIA, ?PNA, LACTIC ACIDOSIS, SYNCOPE, NSTEMI Diagnosis Discharge Diagnosis (1) ESRD on hemodialysis: Status: Acute Code(s): N18.6 - End stage renal disease; Z99.2 - Dependence on renal dialysis (2) Acute hypotension: Status: Acute Code(s): I95.9 - Hypotension, unspecified (3) Anemia in chronic kidney disease: Status: Chronic Code(s): N18.9 - Chronic kidney disease, unspecified; D63.1 - Anemia in chronic kidney disease Plan This 82-year-old male with multiple comorbidities was admitted through ER for hypotension and unresponsiveness during hemodialysis. 1. Hypotension and unresponsiveness consistent with syncope during hemodialysis: Most probably due to intravascular volume depletion. Patient was volume resuscitated and he feels normal. Did not require any vasopressor support. 09/01: Blood pressure normal, 132/45. No fever. 2. Lactic acidemia: Patient lactic acid was elevated 6.2 probably due to volume depletion/hypoperfusion. Lactic acidosis resolved after volume resuscitation. Patient empirically started on IV antibiotic. Patient denies any symptoms of cough, acute shortness of breath or change in respiratory pattern therefore less likely pneumonia or sepsis. Follow cultures. 09/01: Respiratory panel positive for adenovirus. Chest x-ray initially reviewed and does not show any consolidation or infiltrate.Patient is an uric therefore UA and urine culture could not done. Patient did not had fever during hospital course. As mentioned above I do not think patient has infectious process going therefore antibiotic discontinued. Mucinex, incentive spirometry to continue. 3.? A. fib: Patient troponin was elevated 191. EKG shows atrial fibrillation with no acute evidence of ischemia. Repeat troponin shows 161 and 169, downward trend therefore I do not think patient has [place] either STEMI or non-STEMI. Probably mild myocardial injury from hypotension. 09/01: 2D echo was done EF 70%, moderate concentric LVH, RVSP 36 mmHg. Moderate 2+ AI. Study was technically difficult. Patient not on anticoagulation. 4. Subclinical hypothyroidism: TSH was 6.24 on 08/22/2022, today TSH 4.2 and free T4 0.83. Monitor thyroid function test after 3 months. #5. Anemia of chronic disease/CKD: Admission hemoglobin 9.5. Baseline runs between 9-10. Today 8.7. Hemoglobin on baseline. 6 ESRD on hemodialysis: Discussed with the collision technician. Plan for dialysis on 09/01/2022 Other multiple comorbidities include dementia with unclear behavioral disturbance/abnormality, hypertension, dyslipidemia: Home medication reconciliation done. DVT prophylaxis: On heparin subcutaneous. ? CODE STATUS: Full code per facility paperwork. Discharge medication reconciliation done. Discharge follow-up instructions completed. Discharge process discussed with the patient and all questions were answered to patient's satisfaction. Total time spent, exact 35 minutes on discharge meds reconciliation, examination, coordination of care with nurses and ancillary staff, review of imaging and blood test and discussion with the patient on follow-up instructions. Clinical Impression(s) from Imaging Studies Chest X-Ray 08/30/22 14:20 IMPRESSION: Mild increased linear markings at the lung bases slightly worse on the left side with blunting of the left cardiac phrenic angle. This suggests probably atelectasis and possible scarring Medications at Discharge Home Medications amiodarone 200 mg tablet 200 mg PO DAILY HEART 03/10/22 losartan 25 mg tablet 25 mg PO DAILY BP 03/10/22 donepezil 10 mg tablet 10 mg PO QHS 07/08/22 aspirin 81 mg tablet,delayed release 81 mg PO DAILY 08/30/22 levothyroxine 50 mcg tablet 50 mcg PO DAILY THYROID 08/30/22 loratadine 10 mg tablet (Claritin) 10 mg PO DAILY ALLERGIES 08/30/22 sertraline 50 mg tablet (Zoloft) 50 mg PO DAILY 08/30/22 tramadol 50 mg tablet 50 mg PO Q8H PRN Pain 08/30/22 acetaminophen 325 mg tablet (Tylenol) 650 mg PO Q4H PRN PRN Fever, pain 1-10 #0 tabs 09/01/22 guaifenesin 600 mg tablet, extended release 12 hr (Mucus Relief ER) 600 mg PO BID 7 days #14 tabs 09/01/22 sennosides 8.6 mg-docusate sodium 50 mg tablet (Stool Softener-Stimulant Laxative) 2 tab PO BID PRN Constipation #0 tabs 09/01/22 Physical Exam Narrative Patient maintain his blood pressure. He is moving bowel movement. No acute shortness of breath. Physical exam: General: Alert, Oriented x3, Cooperative, feels normal at baseline. HEENT: Atraumatic, PERRLA, EOMI, Normocephalic Oral: Oral mucosa moist. No Gingival or Mucosal Lesions/ Ulcerations Neck: Supple, No JVD, Negative Carotid Bruits Lungs: Air entry diminished in bilateral lung bases. No crepitation/rhonchi Cardiovascular: Regular rate, Regular Rhythm, Normal S1, Normal S2, No murmurs Abdomen: Bowel Sounds Present, Soft, Non Tender, Non-Distended : No renal angle tenderness. No suprapubic tenderness. Extremities: No edema, Capillary Refill Less than 3 Seconds Skin: No rashes, No breakdown Musculoskeletal: No Tenderness to Palpation of Joints or Extremities Neurological: Cranial nerves II-XII grossly intact, DTR 2+/4 and Symmetrical, Neuro grossly intact Psych/Mental Status: Normal affect. Weight / BMI Weight Weight: 159 lb 2.78 oz Body Mass Index (BMI) 22.2 ABG / Lab / Microbiology Data Result Diagrams: 08/31/22 04:40 08/31/22 04:40 Laboratory: Laboratory Results - last 24 hr 08/31/22 04:40: Diff Path Review Reviewed Microbiology: Microbiology 08/31/22 20:15 Stool C. difficile DNA Amplification - Final 08/30/22 19:28 Mucosa - Nasopharyngeal Respiratory Panel (PCR) - Final Adenovirus Meaningful Use Info Meaningful Use Diagnoses (Choose all that apply): None applicable Discharge Plan Admission Admit Date/Time: 08/30/22 16:12 Primary Reason for Your Visit: Hypotension and syncope after dialysis, adenovirus bronchitis Attending Provider: Brian Harrison Primary Care Provider: Care Physician,No Primary Consulting Providers: Brayan Stack ; Deloris Toscano ; Ty Breaux Discharge Orders/Prescriptions Prescriptions: New acetaminophen [Tylenol] 325 mg Tablet 650 mg PO Q4H PRN PRN (Reason: Fever, pain 1-10) Qty: 0 0RF sennosides-docusate sodium [Stool Softener-Stimulant Laxat] 8.6-50 mg Tablet 2 tab PO BID PRN (Reason: Constipation) Qty: 0 0RF guaifenesin [Mucus Relief ER] 600 mg Tablet Extended Release 12hr 600 mg PO BID 7 Days Qty: 14 0RF Continued amiodarone 200 mg tablet 200 mg PO DAILY losartan 25 mg tablet 25 mg PO DAILY donepezil 10 mg Tablet 10 mg PO QHS tramadol 50 mg Tablet 50 mg PO Q8H PRN (Reason: Pain) levothyroxine 50 mcg Tablet 50 mcg PO DAILY sertraline [Zoloft] 50 mg Tablet 50 mg PO DAILY aspirin 81 mg Tablet,Delayed Release (Dr/Ec) 81 mg PO DAILY loratadine [Claritin] 10 mg Tablet 10 mg PO DAILY Discontinued ceftriaxone 1 gram Recon Soln 1 g IM QHS Rx Instructions: FOR 7 DAYS STARTING ON 08/29 FOR RIGHT LUNG INFILTRATES doxycycline monohydrate 100 mg Capsule 100 mg PO BID Referrals / Follow Up: Ty Breaux MD [Med Staff - Consulting] - Within 1 Month Care Physician,No Primary [Primary Care Provider] - Disposition Disposition (needs filled in before D/C Order can be placed): [facility] Facility Charges/Coding Visit Charges Inpatient E&M: 35067 Disch Hosp >30min
[2022-09-01 15:20] VITALS: BP 130/45; PULSE 89; RESP 18; TEMP 36.3; O2SAT 97
[2022-09-01] MEDS: Acetaminophen 325 MG Tablet 650 MG PO (15:49)
--- NOTE | 2022-09-01 16:21 | CASEMGMT ---
Social Work Per physician, pt is ready for discharge today. Pt to return to [facility]. Discharge orders and updated clinicals sent to [facility] via [facility]. Transportation arranged with [facility] for 5:00 pickup via cot. SW attempted to meet with pt however, sleeping soundly. Phone call to pt with no answer. Phone call to pt sister and updated on discharge plan and she is agreeable and will reach out to pt . [facility] and bedside nurse notified of discharge time. Disposition: [facility], skilled level of care. ALFONSO Ludwig
== END 2022-09-01 18:20 | disposition skilled nursing facility (03) | DRG 640 ==
LOC: ED 16:17 → ICU 08-31 05:11
PROVIDERS: Admitting Provider Family Medicine; Emergency Provider Emergency Medicine; Visit Provider Internal Medicine
DX: E86.9 Volume depletion, unspecified (principal); N18.6 End stage renal disease; U07.1 COVID-19; I12.0 Hypertensive chronic kidney disease with stage 5 chronic kidney disease or end stage renal disease; I5A Non-ischemic myocardial injury (non-traumatic); E87.21 Acute metabolic acidosis; D63.1 Anemia in chronic kidney disease; F03.90 Unspecified dementia, unspecified severity, without behavioral disturbance, psychotic disturbance, mood disturbance, and anxiety; I48.0 Paroxysmal atrial fibrillation; Z99.2 Dependence on renal dialysis; E78.5 Hyperlipidemia, unspecified; I95.1 Orthostatic hypotension; E03.9 Hypothyroidism, unspecified; R09.02 Hypoxemia; Z79.82 Long term (current) use of aspirin; Z79.890 Hormone replacement therapy; Z79.899 Other long term (current) drug therapy; Z86.16 Personal history of COVID-19
CPT/HCPCS: 36415; 71045; 80048; 80053; 80061; 83605; 83735; 84100; 84145; 84439; 84443; 84484; 85025; 85610; 85730; 87040; 87493; 87633; 87635; 87641; 90937; 93005; 93306; 97802; 99285; J7030; J7040; A4216; G0257; Q5106; U0003; U0005